=== PATIENT | female | born 1960 | race American Indian/Alaskan Native ===

== ENCOUNTER 2018-05-26 17:01 | Inpatient (IN) | payer BC ==
[2018-05-26 18:14] VITALS: BMI 24.1
[2018-05-26] MEDS ORDERED: Sodium Chloride 0.9% 1,000 ML IV STA (18:30)
--- NOTE | 2018-05-26 18:46 | ED PDOC ---
Arrival/HPI - General Chief Complaint: Dizziness/Lightheaded Time Seen by Provider: 05/26/18 17:19 Historian: Patient - History of Present Illness Narrative History of Present Illness (Text): 05/26/18 18:42 Patient 57 yo F, reports 1 week of L sided intermittent sharp pressure like headache associated with intermittent dizziness with vertigo not worse with head movement. Patient also c/o dry cough, nausea, decrease in appetite with intermittent lower abdominal crampy pain and diarrhea any time she eats. She adds weight loss x 2 weeks due to lack of appetite. Reports having a normal colonoscopy a few years ago. Otherwise: (-) lightheadedness, (-) trauma, (-) tinnitus, (-) hearing loss, (-) chest pain, (-) dyspnea, (-) fever, (-) vomiting , (-) urinary symptoms, (-) syncope, (-) GI bleeding, (-) melena, (-) hematochezia. Has history of prior abdominal surgery - hysterectomy. PMD [place] Past Medical History - Infectious Disease Hx of Infectious Diseases: None - Tetanus Immunization Tetanus Immunization: Unknown - Cardiac Hx Cardiac Disorders: Yes - Pulmonary Hx Respiratory Disorders: No - Neurological Hx Neurological Disorder: No - HEENT Hx HEENT Disorder: No - Renal Hx Renal Disorder: No - Endocrine/Metabolic Hx Endocrine Disorders: No - Hematological/Oncological Hx Blood Disorders: No - Integumentary Hx Dermatological Disorder: No - Musculoskeletal/Rheumatological Hx Musculoskeletal Disorders: Yes Hx Herniated Disk: Yes - Gastrointestinal Hx Gastrointestinal Disorders: No - Genitourinary/Gynecological Hx Genitourinary Disorders: No - Psychiatric Hx Psychophysiologic Disorder: No Hx Substance Use: No - Surgical History Hx Hysterectomy: Yes - Anesthesia Hx Anesthesia Reactions: No Hx Malignant Hyperthermia: No - Suicidal Assessment Feels Threatened In Home Enviroment: No Family/Social History Family/Social History: No Known Family HX Smoking Status: Light Smoker < 10 Cigarettes Daily Hx Alcohol Use: No Hx Substance Use: No Hx Substance Use Treatment: No Allergies/Home Meds Allergies/Adverse Reactions: Allergies No Known Allergies Allergy (Verified 05/26/18 17:35) Home Medications: Home Meds Medication Instructions Recorded Confirmed Alprazolam [Alprazolam Xr] 0.5 mg PO DAILY 05/26/18 05/26/18 Venlafaxine HCl [Venlafaxine HCl 150 mg PO DAILY 05/26/18 05/26/18 ER] traZODone [Desyrel] 100 mg PO HS 05/26/18 05/26/18 Review of Systems - Review of Systems Constitutional: Fatigue, Weight Change (+weight loss). absent: Fevers Respiratory: SOB, Cough Cardiovascular: absent: Chest Pain, Palpitations Gastrointestinal: Abdominal Pain, Diarrhea (after each meal ), Nausea. absent: Vomiting Genitourinary Female: absent: Dysuria, Frequency, Hematuria Musculoskeletal: absent: Arthralgias, Back Pain, Neck Pain Skin: absent: Rash, Pruritis Neurological: Headache, Dizziness (+room spinning sensation) Physical Exam Vital Signs Temp Pulse Resp BP Pulse Ox 05/27/18 00:42 84 95 H 132/84 96 05/26/18 17:38 98.3 F 72 18 136/88 100 Temperature: Afebrile Blood Pressure: Normal Pulse: Regular Respiratory Rate: Normal Appearance: Positive for: Well-Appearing, Non-Toxic, Comfortable Pain Distress: None Mental Status: Positive for: Alert and Oriented X 3 - Systems Exam Head: Present: Atraumatic, Normocephalic Pupils: Present: PERRL Extroacular Muscles: Present: EOMI Conjunctiva: Present: Normal Mouth: Present: Moist Mucous Membranes Neck: Present: Normal Range of Motion Respiratory/Chest: Present: Clear to Auscultation, Good Air Exchange. No: Respiratory Distress, Accessory Muscle Use, Wheezes, Rales, Rhonchi Cardiovascular: Present: Regular Rate and Rhythm, Normal S1, S2. No: Murmurs Abdomen: Present: Tenderness (+mild lower abdominal tenderness). No: Distention , Peritoneal Signs, Mass/Organomegaly Back: Present: Normal Inspection. No: CVA Tenderness, Midline Tenderness Upper Extremity: Present: Normal Inspection, Normal ROM, NORMAL PULSES. No: Cyanosis, Edema Lower Extremity: Present: Normal Inspection, NORMAL PULSES, Normal ROM. No: Edema Neurological: Present: GCS=15, CN II-XII Intact, Speech Normal, Motor Func Grossly Intact, Normal Sensory Function, Gait Normal Skin: Present: Warm, Dry, Normal Color. No: Rashes Psychiatric: Present: Alert, Oriented x 3, Normal Insight, Normal Concentration Medical Decision Making ED Course and Treatment: 05/26/18 18:40 Previous medical records reviewed, patient has been seen in this ER on 7/28/ 2015 for abdominal pain and was found to have colitis on her abdominal CT. Plan: -- Labs -- IV fluids -- Urinalysis -- EKG -- CXR -- Reglan -- Reassess and disposition -- CT AP w/ PO & IV contrast -- CT head 05/26/18 22:25 Labs reviewed : wbc 6.9, trop (-). CXR : NAD, as read by PA On reevaluation, patient reports minimal improvement of symptoms, still reports of heache and nausea, denies any CP. On exam, patient remains awake alert and oriented 3 in no acute distress. CT Head Without Intravenous Contrast EXAM DATE/TIME: 05/26/2018 6:29 PM CLINICAL HISTORY: 57 years old, female; Pain; Headache; Headache not specified; Additional info: Dizziness TECHNIQUE: Axial computed tomography images of the head/brain without intravenous contrast. All CT scans at this facility use at least one of these dose optimization techniques: automated exposure control; mA and/or kV adjustment per patient size (includes targeted exams where dose is matched to clinical indication); or iterative reconstruction. Coronal and sagittal reformatted images were created and reviewed. COMPARISON: No relevant prior studies available. FINDINGS: Brain: There is no evidence of intracranial hemorrhage, mass lesion, or mass effect. No abnormal extra-axial or parenchymal fluid collections. The posterior fossa is unremarkable. Ventricles: The ventricles and basilar cisterns are unremarkable. Bones/joints: The bony calvarium is unremarkable. Sinuses: Mild mucosal thickening present in the ethmoid sinuses. Mastoid air cells: Normal as visualized. No mastoid effusion. Soft tissues: Normal. IMPRESSION: There is no acute intracranial process. 05/26/18 22:32 CT Abdomen and Pelvis With Intravenous Contrast EXAM DATE/TIME: 05/26/2018 6:37 PM CLINICAL HISTORY: 57 years old, female; Pain; Abdominal pain; Acute; Additional info: Lower abd pain, diarrhea TECHNIQUE: Axial computed tomography images of the abdomen and pelvis with intravenous contrast. All CT scans at this facility use at least one of these dose optimization techniques: automated exposure control; mA and/or kV adjustment per patient size (includes targeted exams where dose is matched to clinical indication); or iterative reconstruction. Coronal and sagittal reformatted images were created and reviewed. CONTRAST: 50 ml of OMNI 240 administered intravenously. COMPARISON: No relevant prior studies available. FINDINGS: Lower thorax: Pericardial effusion is identified. Dependent changes and subpleural reticulation in the lung bases. ABDOMEN: Liver: . No mass. Gallbladder and bile ducts: . No calcified stones. No ductal dilation. Pancreas: . No ductal dilation. Spleen: . No splenomegaly. Adrenals: There is thickening of the adrenal glands present. Kidneys and ureters: There is hyperdense nodules scattered throughout the left renal parenchyma incompletely characterized correlation with prior imaging or further evaluation and followup is recommended. Stomach and bowel: Scattered diverticuli. No obstruction. No mucosal thickening. Appendix: No evidence of appendicitis. PELVIS: Bladder: Unremarkable as visualized. Reproductive: Unremarkable as visualized. ABDOMEN and PELVIS: Intraperitoneal space: . No free air. No significant fluid collection. Bones/joints: No acute fracture. No dislocation. Soft tissues: There are innumerable soft tissue nodules in the regions bilaterally. Stranding of the adjacent soft tissue fat present. Correlate with history. Vasculature: Vascular calcifications of the aorta. . Lymph nodes: Scattered mesenteric lymph nodes. IMPRESSION: 1. Pericardial effusion is identified. 2. There is hyperdense nodules scattered throughout the left renal parenchyma incompletely characterized correlation with prior imaging or further evaluation and followup is recommended. 3. There are innumerable soft tissue nodules in the regions bilaterally. Stranding of the adjacent soft tissue fat present. Correlate with history. Patient medicated with zofran 4 mg IV and toradol 30 mg IV for nausea and headache. CT head and A/P results reviewed and discussed with the patient and ER MD. In patient's prior CT A/P done in 2014, there was no pericardial fluid. EKG : NSR at 68 bpm, +slight ST elevation at V4-V6 only, as read by PA and ER MD. Based on history, exam and diagnostic results plan will be for observation with cardio consult in the AM, which the patient agrees to. Case d/w Dr. Khalil, request CT chest and if the patient has a minor pericardial fluid on CT, then the patient can stay for observation. 05/27/18 00:42 CT Chest Without Intravenous Contrast EXAM DATE/TIME: 05/26/2018 11:17 PM CLINICAL HISTORY: 57 years old, female; Pain and signs and symptoms; Other: Pericardial fluid; Chest pain; Type not specified TECHNIQUE: Axial computed tomography images of the chest without intravenous contrast. All CT scans at this facility use at least one of these dose optimization techniques: automated exposure control; mA and/or kV adjustment per patient size (includes targeted exams where dose is matched to clinical indication); or iterative reconstruction. COMPARISON: DX - CHEST TWO VIEWS (PA/LAT) 05/26/2018 9:52 PM FINDINGS: Tubes, catheters and devices: Septal line thickening suggestive of congestion. Lungs: Mild dependent atelectatic changes in the lungs. Scattered right upper lobe nodules measuring up to 5 mm. Pleural space: Trace pleural fluid. Heart: Small volume of pericardial fluid. 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 Aorta: Normal. No aortic aneurysm. Lymph nodes: Unremarkable. No enlarged lymph nodes. Bones/joints: Degenerative changes of the osseous structures. Right shoulder ossifications. Soft tissues: Unremarkable. Upper abdomen: For report of the abdomen please see recent separate report. IMPRESSION: 1. For report of the abdomen please see recent separate report. 2. Trace pleural fluid. 3. Small volume of pericardial fluid. 4. Septal line thickening suggestive of congestion. 5. 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 05/27/18 00:45 CT chest result d/w Dr. Khalil, agrees with plan for obs stay. - Lab Interpretations Lab Results: 05/26/18 18:58 05/26/18 18:58 Lab Results 05/26/18 18:58: Sodium 138, Potassium 4.2, Chloride 104, Carbon Dioxide 27, Anion Gap 11, BUN 19, Creatinine 1.4 H, Est GFR ( Amer) 47, Est GFR (Non- Af Amer) 39, Random Glucose 79, Calcium 9.7, Magnesium 1.8, Total Bilirubin 0.2 , AST 29, ALT 28, Alkaline Phosphatase 59, Lactate Dehydrogenase 623, Total Creatine Kinase 54, Troponin I < 0.01, Total Protein 6.1, Albumin 3.8, Globulin 2.4, Albumin/Globulin Ratio 1.6 05/26/18 18:58: WBC 6.9, RBC 4.12, Hgb 12.3, Hct 35.8 L, MCV 86.9, MCH 29.9, MCHC 34.4, RDW 13.0, Plt Count 237, MPV 10.5, Gran % 42.0 L, Lymph % (Auto) 51.0 H, Schley % (Auto) 5.5, Eos % (Auto) 0.9 L, Baso % (Auto) 0.6, Gran # 2.92, Lymph # (Auto) 3.5 H, Schley # (Auto) 0.4, Eos # (Auto) 0.1, Baso # (Auto) 0.04 - RAD Interpretation Radiology Orders: 05/26/18 18:25 CHEST TWO VIEWS (PA/LAT) [RAD] Stat 05/26/18 18:29 HEAD W/O CONTRAST [CT] Stat 05/26/18 18:37 ABD & PELVIS PO CONTRAST ONLY [CT] Stat 05/26/18 23:17 CHEST W/O CONTRAST [CT] Stat - Medication Orders Current Medication Orders: Discontinued Medications Sodium Chloride (Sodium Chloride 0.9%) 1,000 mls @ 1,000 mls/hr IV .Q1H STA Stop: 05/26/18 19:29 Last Admin: 05/26/18 19:07 Dose: 1,000 mls/hr eMAR Start Stop Document 05/26/18 19:07 [facility] (Rec: 05/26/18 19:08 [email or web address] Intravenous Solution Start Date 05/26/18 Start Time 19:08 Ketorolac Tromethamine (Toradol) 30 mg IVP STAT STA Stop: 05/26/18 22:27 Last Admin: 05/26/18 22:51 Dose: 30 mg MAR Pain Assessment Document 05/26/18 22:51 SS (Rec: 05/26/18 22:51 SS [id number]) Pain Reassessment Is this a pain reassessment? No Presence of Pain Presence of Pain Yes Pain Scale Used Pain Scale Used Numeric IVP Administration Document 05/26/18 22:51 SS (Rec: 05/26/18 22:51 SS [id number]) Charges for Administration # of IVP Administrations 1 Metoclopramide HCl (Reglan) 10 mg IVP STAT STA Stop: 05/26/18 18:31 Last Admin: 05/26/18 19:06 Dose: 10 mg IVP Administration Document 05/26/18 19:06 [facility] (Rec: 05/26/18 19:06 [email or web address] Charges for Administration # of IVP Administrations 1 Ondansetron HCl (Zofran Inj) 4 mg IVP STAT STA Stop: 05/26/18 22:27 Last Admin: 05/26/18 22:51 Dose: 4 mg IVP Administration Document 05/26/18 22:51 SS (Rec: 05/26/18 22:51 SS [id number]) Charges for Administration # of IVP Administrations 1 - PA / [employer]ICE [employer]GE[employer] / Resident Statement MD/DO has reviewed & agrees with the documentation as recorded. Disposition/Present on Arrival - Present on Arrival Any Indicators Present on Arrival: No History of DVT/PE: No History of Uncontrolled Diabetes: No Urinary Catheter: No History of Decub. Ulcer: No History Surgical Site Infection Following: None - Disposition Have Diagnosis and Disposition been Completed?: Yes Diagnosis: Pericardial effusion, Weight loss Disposition: HOSPITALIZED Disposition Time: 00:45 Patient Plan: Observation Patient Problems: Current Active Problems Problem Status Onset Pericardial effusion Acute Weight loss Acute Condition: STABLE Forms: [employer] ([place]rian)
[2018-05-26] MEDS ORDERED: Iohexol 240 (50 ml) ONE (18:59)
[2018-05-26] MEDS ORDERED: Iohexol 350 MG/100 ML VIAL ONE (18:59)
[2018-05-26 19:06] LABS: BASO # 0.04 K/mm3 (0.0-2.0); BASO % 0.6 % (0.0-3.0); EOS # 0.1 (0.0-0.7); EOS % 0.9 % (1.5-5.0); GRAN # 2.92 (1.4-6.5); HEMOGLOBIN 12.3 g/dL (12.0-16.0); LYMPH # 3.5 (1.2-3.4); MEAN CELL VOLUME 86.9 fl (80.0-105.0); MEAN CORPUSCULAR HEMOGLOBIN 29.9 pg (25.0-35.0); MEAN CORPUSCULAR HGB CONC 34.4 g/dl (31.0-37.0); MEAN PLATELET VOLUME 10.5 fl (7.0-11.0); MONO # 0.4 (0.1-0.6); MONO % 5.5 % (1.0-6.0); RBC 4.12 10^6/uL (3.5-6.1); WHITE BLOOD COUNT 6.9 10^3/ul (4.5-11.0)
[2018-05-26 19:20] LABS: ALB/GLOB RATIO 1.6 (1.1-1.8); ALBUMIN 3.8 g/dL (3.0-4.8); ALT/SGPT 28 U/L (7-56); AST/SGOT 29 U/L (14-36); BLOOD UREA NITROGEN 19 mg/dL (7-21); CALCIUM 9.7 mg/dL (8.4-10.5); GFR NON-AFRICAN AMERICAN 39
[2018-05-26 19:32] LABS: TROPONIN I < 0.01 ng/mL
[2018-05-27] MEDS: Sodium Chloride 0.9% 1,000 ML IV SCH ×2 (04:18→17:50)
[2018-05-27] MEDS: Pantoprazole 40 mg EC Tab PO SCH (05:55)
--- NOTE | 2018-05-27 06:11 | CP.PCM.HP ---
<Angelito Jacobson - Last Filed: 05/27/18 07:36> History of Present Illness - History of Present Illness History of Present Illness: Angelito Romanodgjames DO PGY-1, H&P for hospitalist CC: headache, dizziness This is a 57 year old AA female with PMHx of colitis, endometriosis, depression who presented to the ED with complaints of a headache, nausea, and dizziness. Pt states that she has had a worsening headache for the past 2 weeks, described as intermittent, located on the left temporal region, sharp, stabbing, 10/10. Pt states that the pain sometimes radiates across her forehead to the right temporal region. She denies any exacerbating events, and states that it is only mildly alleviated with Aleve which brings the pain down to a 8/10. Pt denies visual problems, no claudication of jaw while chewing, weakness, numbness or tingling, falls. Pt denies any history of migraines. Pt is also reporting abdominal pain for the past 1 week, associated with 2-3 episodes of diarrhea per day. Diarrhea is mostly liquid brown, but sometimes black. Abdominal pain is intermittent sharp, 7/10 and located across the lower abdomen, without alleviating or exacerbating symptoms. She states that she has lost 12 pounds over the past week, and has had decreased appetite and nausea, due to being afraid to eat. Pt reports intermittent SOB over the past week that she noticed worsens when walking, associated with a sharp pain in the middle of chest, nonradiating. She reports that she is getting over a dry cough, with congestion and sore throat for the past 2 weeks. She denies fever, chills, rash , sick contacts, recent travel. A 12-point ROS was reviewed and is otherwise unremarkable. In the ED, Abdominal/pelvic CT with IV contrast which showed pericardial effusion. Chest CT showed small volume of pericardial fluid. PMD: Deduosis Psych: Dr Calvillo PMHx: colitis 2015, endometriosis, kidney issues when a teenage but hasn't had any problems since, 8 herniated discs with chronic back pain, depression, PSHx: fibroids removal with ultimate hysterectomy in early 1999s FHx: granfather with pancreaatic cancer, aunt with metastatic breast cancer diagnosed in early 60s and soon after dx Meds: trazodone, alprazolam xr, venlafaxine, vitamin d, multivitamins Allx: NKDA Social Hx: smokes 1-2 cigs per day, 20 pack year history, quit etoh 26 years ago , denies illicit drugs use for over 20 years (no history of IV drug use) Preventative: Colonoscopy in 2016 which was normal as per pt. mammogram last year which was normal as per pt. Present on Admission - Present on Admission Any Indicators Present on Admission: No Review of Systems - Review of Systems All systems: reviewed and no additional remarkable complaints except (as per HPI ) Past Patient History - Infectious Disease Hx of Infectious Diseases: None - Tetanus Immunizations Tetanus Immunization: Unknown - Past Social History Smoking Status: Light Smoker < 10 Cigarettes Daily - CARDIAC Hx Cardiac Disorders: Yes - PULMONARY Hx Respiratory Disorders: No - NEUROLOGICAL Hx Neurological Disorder: No - HEENT Hx HEENT Problems: No - RENAL Hx Chronic Kidney Disease: No - ENDOCRINE/METABOLIC Hx Endocrine Disorders: No - HEMATOLOGICAL/ONCOLOGICAL Hx Blood Disorders: No - INTEGUMENTARY Hx Dermatological Problems: No - MUSCULOSKELETAL/RHEUMATOLOGICAL Hx Falls: No - GASTROINTESTINAL Hx Gastrointestinal Disorders: No - GENITOURINARY/GYNECOLOGICAL Hx Genitourinary Disorders: No - PSYCHIATRIC Hx Psychophysiologic Disorder: No Hx Substance Use: No - SURGICAL HISTORY Hx Hysterectomy: Yes - ANESTHESIA Hx Anesthesia Reactions: No Hx Malignant Hyperthermia: No Meds Allergies/Adverse Reactions: Allergies Allergy/AdvReac Type Severity Reaction Status Date / Time No Known Allergies Allergy Verified 05/26/18 17:35 Physical Exam - Constitutional Appears: Well, Non-toxic, No Acute Distress - Head Exam Head Exam: ATRAUMATIC, NORMAL INSPECTION, NORMOCEPHALIC - Eye Exam Eye Exam: EOMI, PERRL Pupil Exam: NORMAL ACCOMODATION, PERRL - ENT Exam ENT Exam: Mucous Membranes Moist Additional comments: (+) pharyngeal erythema without exudates - Neck Exam Neck exam: Positive for: Normal Inspection. Negative for: Lymphadenopathy - Respiratory Exam Respiratory Exam: NORMAL BREATHING PATTERN. absent: Rales, Rhonchi, Wheezes, Respiratory Distress - Cardiovascular Exam Cardiovascular Exam: REGULAR RHYTHM, +S1, +S2. absent: Rubs - GI/Abdominal Exam GI & Abdominal Exam: Normal Bowel Sounds, Soft, Tenderness Additional comments: (+) mild abdominal tenderness across the lower abdomen - Extremities Exam Extremities exam: Positive for: pedal pulses present. Negative for: calf tenderness, tenderness - Back Exam Back exam: NORMAL INSPECTION. absent: CVA tenderness (L), CVA tenderness (R) - Neurological Exam Neurological exam: Alert, CN II-XII Intact, Oriented x3 Additional comments: (+) 5/5 strength in bilateral upper and lower extremities - Skin Skin Exam: Normal Color, Warm Additional comments: (-) rash, (-) purpora Results - Vital Signs Recent Vital Signs: Last Vital Signs Temp 98.2 F 05/27/18 03:03 Pulse 71 05/27/18 03:03 Resp 20 05/27/18 03:03 BP 106/63 05/27/18 03:03 Pulse Ox 99 05/27/18 03:03 - Labs Result Diagrams: 05/26/18 18:58 05/26/18 18:58 Labs: Laboratory Results - last 24 hr 05/27/18 01:45 Troponin I < 0.01 Assessment & Plan - Assessment and Plan (Free Text) Assessment: This is a 57 year old AA female with PMHx of colitis, endometriosis, depression who presented to the ED with complaints of a headache, nausea, dizziness, sob, weight loss. In the ED, pt was noted to have a small pericardial effusion on CT. Pt admitted to med/surg for observation. Plan: 1. dizziness and headache - head ct shows no intracranial pathology - tylenol prn headache - neurology consulted, recs appreciated 2. pericardial effusion, unknown etiology - pt is hemodynamically stable; no leukocytosis but increased lymphocytes on cbc - f/u blood culture x2, urine culture - f/u lupus sle panel - f/u echocardiogram - f/u ekg - troponin is negative x 2; continue to trend troponin x 1 - cardiology consulted, recs appreciated 3. nirmala - cr is 1.4 - NS ivf - avoid nephrotoxic medications - hyperdense nodules scattered throughout the left renal parenchyma on abdominal /pelvic ct - nephrology consulted, recs appreciated 4. weight loss (12 lbs over 2 weeks), possibly due to diarrhea with malabsorption, r/o ca - f/u HIV panel - f/u ca-125, cea, ca 19-9 levels - f/u lipase, vit b12 - f/u fecal leukocytes, stool culture, ova and parasites - f/u TSH, t3, t4 - innumerable soft tissue nodules noted on abdominal ct 5. abdominal pain with diarrhea - abdominal/pelvic ct was done - tylenol for pain - consider GI consult after stool studies return 6. depression - continue home medications 7. history of vit d deficiency - vitamin d level ordered - will prescribe vitamin D if deficient 7. PPX/diet - protonix for GI, scds for dvt - regular diet Case reviewed and discussed with attending physician, Dr. Khalil <Josette Khalil - Last Filed: 05/27/18 08:43> Results - Vital Signs Recent Vital Signs: Last Vital Signs Temp 98.2 F 05/27/18 06:00 Pulse 71 05/27/18 06:00 Resp 20 05/27/18 06:00 BP 106/63 05/27/18 06:00 Pulse Ox 99 05/27/18 06:00 - Labs Result Diagrams: 05/27/18 07:15 05/27/18 07:15 Labs: Laboratory Results - last 24 hr 05/27/18 05/27/18 05/27/18 01:45 07:00 07:15 WBC RBC Hgb Hct MCV MCH MCHC RDW Plt Count MPV Gran % Lymph % (Auto) [place] % (Auto) Eos % (Auto) Baso % (Auto) Gran # Lymph # (Auto) [place] # (Auto) Eos # (Auto) Baso # (Auto) PT INR APTT Sodium Potassium Chloride Carbon Dioxide Anion Gap BUN Creatinine Est GFR ( Amer) Est GFR (Non-Af Amer) Random Glucose Calcium Total Bilirubin AST ALT Alkaline Phosphatase Troponin I < 0.01 Total Protein Albumin Globulin Albumin/Globulin Ratio Lipase Free T4 0.85 TSH 3rd Generation 2.62 Urine Color Urine Appearance Urine pH Ur Specific [place] Urine Protein Urine Glucose (UA) Urine Ketones Urine Blood Urine Nitrate Urine Bilirubin Urine Urobilinogen Ur Leukocyte Esterase Urine RBC Urine WBC Ur Epithelial Cells Urine Bacteria Ur Random Sodium 37 05/27/18 05/27/18 05/27/18 07:15 07:15 07:15 WBC 5.7 RBC 3.92 Hgb 11.6 L Hct 34.4 L MCV 87.8 MCH 29.6 MCHC 33.7 RDW 13.0 Plt Count 227 MPV 10.1 Gran % 54.3 Lymph % (Auto) 39.1 H [place] % (Auto) 5.0 Eos % (Auto) 0.7 L Baso % (Auto) 0.9 Gran # 3.07 Lymph # (Auto) 2.2 [place] # (Auto) 0.3 Eos # (Auto) 0.0 Baso # (Auto) 0.05 PT 10.9 INR 0.95 APTT 32.4 Sodium 141 Potassium 4.3 Chloride 108 H Carbon Dioxide 27 Anion Gap 10 BUN 20 Creatinine 1.4 H Est GFR ( Amer) 47 Est GFR (Non-Af Amer) 39 Random Glucose 93 Calcium 9.1 Total Bilirubin 0.1 L AST 41 H D ALT 42 Alkaline Phosphatase 51 Troponin I Total Protein 5.5 L Albumin 3.3 Globulin 2.2 Albumin/Globulin Ratio 1.5 Lipase Free T4 TSH 3rd Generation Urine Color Urine Appearance Urine pH Ur Specific [place] Urine Protein Urine Glucose (UA) Urine Ketones Urine Blood Urine Nitrate Urine Bilirubin Urine Urobilinogen Ur Leukocyte Esterase Urine RBC Urine WBC Ur Epithelial Cells Urine Bacteria Ur Random Sodium 05/27/18 05/27/18 05/27/18 07:15 07:45 07:50 WBC RBC Hgb Hct MCV MCH MCHC RDW Plt Count MPV Gran % Lymph % (Auto) [place] % (Auto) Eos % (Auto) Baso % (Auto) Gran # Lymph # (Auto) [place] # (Auto) Eos # (Auto) Baso # (Auto) PT INR APTT Sodium Potassium Chloride Carbon Dioxide Anion Gap BUN Creatinine Est GFR ( Amer) Est GFR (Non-Af Amer) Random Glucose Calcium Total Bilirubin AST ALT Alkaline Phosphatase Troponin I < 0.01 Total Protein Albumin Globulin Albumin/Globulin Ratio Lipase 200 Free T4 TSH 3rd Generation Urine Color Light yellow Urine Appearance Clear Urine pH 5.0 Ur Specific [place] <= 1.005 Urine Protein Negative Urine Glucose (UA) Negative Urine Ketones Negative Urine Blood Negative Urine Nitrate Negative Urine Bilirubin Negative Urine Urobilinogen 0.2 Ur Leukocyte Esterase Trace H Urine RBC 0 - 2 Urine WBC 2 - 5 Ur Epithelial Cells 3 - 4 Urine Bacteria Few Ur Random Sodium Attending/Attestation - Attestation I have personally seen and examined this patient.: Yes I have fully participated in the care of the patient.: Yes I have reviewed all pertinent clinical information: Yes Notes (Text): 05/27/18 08:41 Pt seen with the resident by the bedside. Case discussed in detail. Agree with documentation,assessment and plan of treatment.
[2018-05-27 07:41] LABS: BASO # 0.05 K/mm3 (0.0-2.0); BASO % 0.9 % (0.0-3.0); EOS % 0.7 % (1.5-5.0); GRAN # 3.07 (1.4-6.5); GRAN % 54.3 % (50.0-68.0); HEMOGLOBIN 11.6 g/dL (12.0-16.0); LYMPH # 2.2 (1.2-3.4); LYMPH % 39.1 % (22.0-35.0); MEAN CELL VOLUME 87.8 fl (80.0-105.0); MEAN CORPUSCULAR HEMOGLOBIN 29.6 pg (25.0-35.0); MEAN CORPUSCULAR HGB CONC 33.7 g/dl (31.0-37.0); MEAN PLATELET VOLUME 10.1 fl (7.0-11.0); MONO # 0.3 (0.1-0.6); RBC 3.92 10^6/uL (3.5-6.1); WHITE BLOOD COUNT 5.7 10^3/ul (4.5-11.0)
[2018-05-27 07:49] LABS: INR 0.95; PARTIAL THROMBOPLASTIN TIME 32.4 Seconds (25.1-36.5); PROTHROMBIN TIME 10.9 SECONDS (9.4-12.5)
[2018-05-27 07:54] LABS: ALB/GLOB RATIO 1.5 (1.1-1.8); ALBUMIN 3.3 g/dL (3.0-4.8); CALCIUM 9.1 mg/dL (8.4-10.5)
[2018-05-27 07:58] LABS: URINE BILIRUBIN NEGATIVE (NEGATIVE); URINE BLOOD NEGATIVE (NEGATIVE); URINE GLUCOSE (UA) NEGATIVE (NEGATIVE); URINE LEUKOCYTE ESTERASE TRACE Leu/uL (NEGATIVE); URINE PROTEIN NEGATIVE mg/dL (<30 mg/dL); URINE UROBILINOGEN 0.2 E.U./dL (<1 E.U./dL)
[2018-05-27 08:01] LABS: URINE APPEARANCE CLEAR (CLEAR); URINE COLOR LIGHT YELLOW (YELLOW)
[2018-05-27 08:07] LABS: FREE T4 0.85 ng/dL (0.78-2.19)
[2018-05-27 08:20] LABS: LIPASE 200 U/L (23-300)
[2018-05-27 08:28] LABS: URINE BACTERIA FEW (NEG); URINE RBC 0 - 2 /hpf (0-2)
[2018-05-27] MEDS: Venlafaxine 75 mg ER Cap PO SCH (08:59)
--- NOTE | 2018-05-27 09:16 | CT ---
Date of service: 05/26/2018 PROCEDURE: CT Abdomen and Pelvis with contrast HISTORY: Lower abdominal pain, diarrhea COMPARISON: 05/13/2015 TECHNIQUE: Contrast dose: Oral contrast only. Print Radiation dose: Total exam DLP = 657.55 MGy-cm. This CT exam was performed using one or more of the following dose reduction techniques: Automated exposure control, adjustment of the mA and/or kV according to patient size, and/or use of iterative reconstruction technique. FINDINGS: LOWER THORAX: Stable trace pericardial effusion. LIVER: Unremarkable. No gross lesion or ductal dilatation. GALLBLADDER AND BILE DUCTS: Unremarkable. PANCREAS: Unremarkable. No gross lesion or ductal dilatation. SPLEEN: Unremarkable. ADRENALS: Unremarkable. No mass. KIDNEYS AND URETERS: Nephrocalcinosis/ tiny calcified masses/cysts unilateral, only affecting the left kidney. These findings however are stable compared to the prior study. VASCULATURE: Unremarkable. No aortic aneurysm. BOWEL: Unremarkable. No obstruction. No gross mural thickening. APPENDIX: Normal appendix. PERITONEUM: Unremarkable. No free fluid. No free air. LYMPH NODES: Unremarkable. No enlarged lymph nodes. BLADDER: Unremarkable. REPRODUCTIVE: Unremarkable. BONES: No acute fracture. OTHER FINDINGS: Innumerable injection granuloma/ small masses gluteal region unchanged compared to the prior study. IMPRESSION: No acute findings related to/accounting for the clinical presentation. Additional benign and/or incidental findings described above. No significant interval change compared to the prior examination(s). Concordant results (preliminary interpretation) provided by [employer]. Procedure Completed: 21:46 Preliminary ([facility]) Report: Dictated and Authenticated: 22:28 Final Interpretation: 09:14. May 27, 2018.
--- NOTE | 2018-05-27 09:51 | CT ---
Date of service: 05/26/2018 PROCEDURE: CT HEAD WITHOUT CONTRAST. HISTORY: dizziness COMPARISON: None available. TECHNIQUE: Axial computed tomography images were obtained through the head/brain without intravenous contrast. Radiation dose: Total exam DLP = 977 mGy-cm. This CT exam was performed using one or more of the following dose reduction techniques: Automated exposure control, adjustment of the mA and/or kV according to patient size, and/or use of iterative reconstruction technique. FINDINGS: HEMORRHAGE: No intracranial hemorrhage. BRAIN: No mass effect or edema. No atrophy or chronic microvascular ischemic changes. VENTRICLES: Unremarkable. No hydrocephalus. CALVARIUM: Unremarkable. PARANASAL SINUSES: Unremarkable as visualized. No significant inflammatory changes. MASTOID AIR CELLS: Unremarkable as visualized. No inflammatory changes. OTHER FINDINGS: The report concurs with the preliminary [facility] [employer] report IMPRESSION: No acute intracranial process
--- NOTE | 2018-05-27 10:04 | RAD ---
Date of service: 05/26/2018 HISTORY: cough COMPARISON: No prior. TECHNIQUE: Chest PA and lateral FINDINGS: LUNGS: Mild peribronchial thickening PLEURA: No significant pleural effusion identified. No pneumothorax apparent. CARDIOVASCULAR: Normal. OSSEOUS STRUCTURES: No significant abnormalities. VISUALIZED UPPER ABDOMEN: Normal. OTHER FINDINGS: None. IMPRESSION: Mild peribronchial thickening. No evidence of pneumonia
--- NOTE | 2018-05-27 10:38 | CT ---
Date of service: 05/26/2018 PROCEDURE: CT Chest without contrast HISTORY: pericardial fluid COMPARISON: May 26, 2018. TECHNIQUE: Contiguous axial images were obtained through the chest without intravenous contrast enhancement. Sagittal and coronal reconstructions were performed. Radiation dose (DLP): 244.44 mGy-cm. This CT exam was performed using one or more of the following dose reduction techniques: Automated exposure control, adjustment of the mA and/or kV according to patient size, and/or use of iterative reconstruction technique. FINDINGS: LUNGS: Clear lungs. Visualized airway clear. MEDIASTINUM: Unremarkable thoracic aorta. No aneurysm. Normal sized heart. Trace pericardial effusion/thickening, similar findings can be seen on prior CT scans 05/13/2015. Dilated main pulmonary artery 3.5 cm consistent with pulmonary arterial hypertension. No lymphadenopathy. PLEURA: No pleural fluid. No pneumothorax. BONES: No fracture. No destructive lesion. UPPER ABDOMEN: Grossly unremarkable. OTHER FINDINGS: The esophagus is dilated and contains fluid and debris. No mucosal or constricting lesions are visible. IMPRESSION: No acute findings related to/accounting for the clinical presentation. Additional benign and/or incidental findings described above. Concordant results (preliminary interpretation) provided by [employer]. Procedure Completed: 23:35. Preliminary ([facility]) Report: Dictated and Authenticated: 00:29. May 27, 2018. Final Interpretation: 10:35.
--- NOTE | 2018-05-27 12:23 | CARD ---
APPROVED REPORT Date of service: 05/26/2018 EKG Measurement Heart [id number] <Conclusion> Normal sinus rhythm Possible Left atrial enlargement
[2018-05-27] MEDS: ALPRAZOLAM 0.5 MG PO SCH (13:15)
--- NOTE | 2018-05-27 14:30 | CP.PCM.CON ---
History of Present Illness - History of Present Illness History of Present Illness: Nephrology Consultation Note: Assessment: Stable Acute Kidney Injury (N17.9) likely due to GI fluid loss and decreased oral intake acute gastroenterittis Anemia left renal changed on imaging ? due to prior infection versus embolic infarction Plan No acute need for renal replacement therapy at this time. Maintain hemodynamics stable. Avoid hypotension. Patient not on ACEI/ARB due to recent CARMELA and low BP Monitor Input/Output, daily weights and renal function with basic metabolic panel continue with IVF Anemia work up as per primary team consider outpt cardiology eval for parox a Afib as possible source of embolism to kidney in past. echo results pending Dose meds/antibiotics for reduced GFR. Avoid fleets enema/magnesium based laxatives. Avoid nephrotoxins/NSAIDs/ iodinated contrast (unless needed emergently) Glycemic control Further work up/management as per primary team Thanks for allowing me to participate in care of your patient. Will follow patient with you. Please call if any Qs. had d/w team Dr Demsond Yanes Office: [phone] Chief Complaint; nausea/loose stool Reason for consult: Acute Kidney Injury HPI: Pt is a 57 F without known hx of DM or HTN presented with complaints of decreased appetite, nausea/vomiting and loose stool for last 2 weeks with 15 weight loss due to it. she fee;s better now. BM soft. no further vomitting Denies OTC/herbal meds or NSAIDs No recent iodinated contrast exposure. No obvious episodes of low BP. pt says she had kidney infection as a teen otherwise not aware about kidney disease in past ROS: Cardiovascular: No chest pain. Pulmonary: No shortness of breath Gastrointestinal: denies abdominal pain No nausea. No vomiting. no loose stool today Genitourinary: No pain while urinating. Denies blood in urine. All other negative except as mentioned in HPI Physical Examination: General Appearance: Comfortable, in no acute respiratory distress, co-operative . Vitals reviewed and noted as below Head; Atraumatic, normocephalic ENT: no ulcers no thrush. Tongue is midline. Oropharynx: no rash or ulcers. EYES: Pupils are equal, round and reactive to light accommodation. Eye muscles and extraocular movement intact. Sclera is anicteric. Neck; supple no lymphadenopathy, no thyromegaly or bruit Lungs: Normal respiratory rate/effort. Breath sounds bilateral equal and clear Heart: Normal rate. s1s2 normal. No rub or gallop. Extremities: no edema. No varicose veins Neurological: Patient is alert, awake and oriented to person, place and time. No focal deficit. Strength bilateral appropriate and equal Skin: Warm and dry. Normal turgor. No rash. Palpitation: Normal elasticity for age Abdomen: Abdomen is soft. Bowel sounds +. There is no abdominal tenderness, no guarding/rigidity no organomegaly Psych: normal insight and normal affect/mood MSK: no joint tenderness or swelling. Digits and nails normal, no deformity : kidney or bladder not palpable Labs/imaging reviewed. Past medical history, past surgical history, family history, social history, allergy reviewed and noted as below Family hx: no hx of CKD. Rest non-contributory imaging; left renal parenchymal calcification and ? embolic infarction changes UA no protein or blood Past Patient History - Infectious Disease Hx of Infectious Diseases: None - Tetanus Immunizations Tetanus Immunization: Unknown - Past Social History Smoking Status: Light Smoker < 10 Cigarettes Daily - CARDIAC Hx Cardiac Disorders: Yes - PULMONARY Hx Respiratory Disorders: No - NEUROLOGICAL Hx Neurological Disorder: No - HEENT Hx HEENT Problems: No - RENAL Hx Chronic Kidney Disease: No - ENDOCRINE/METABOLIC Hx Endocrine Disorders: No - HEMATOLOGICAL/ONCOLOGICAL Hx Blood Disorders: No - INTEGUMENTARY Hx Dermatological Problems: No - MUSCULOSKELETAL/RHEUMATOLOGICAL Hx Falls: No - GASTROINTESTINAL Hx Gastrointestinal Disorders: No - GENITOURINARY/GYNECOLOGICAL Hx Genitourinary Disorders: No - PSYCHIATRIC Hx Psychophysiologic Disorder: No Hx Substance Use: No - SURGICAL HISTORY Hx Hysterectomy: Yes - ANESTHESIA Hx Anesthesia Reactions: No Hx Malignant Hyperthermia: No Meds Allergies/Adverse Reactions: Allergies Allergy/AdvReac Type Severity Reaction Status Date / Time No Known Allergies Allergy Verified 05/26/18 17:35 - Medications Medications: Current Medications Acetaminophen (Tylenol 325mg Tab) 650 mg PO Q6H PRN PRN Reason: Headache Last Admin: 05/27/18 04:17 Dose: 650 mg Alprazolam (Xanax) 0.5 mg PO BID PRN; Protocol PRN Reason: Anxiety Last Admin: 05/27/18 13:15 Dose: 0.5 mg Home Med (Home Med) 1 unit PO DAILY TED Last Admin: 05/27/18 13:15 Dose: Not Given Sodium Chloride (Sodium Chloride 0.9%) 1,000 mls @ 100 mls/hr IV .Q10H [facility] Last Admin: 05/27/18 04:18 Dose: 100 mls/hr Ondansetron HCl (Zofran Inj) 4 mg IVP Q4H PRN PRN Reason: Nausea/Vomiting Last Admin: 05/27/18 08:53 Dose: 4 mg Pantoprazole Sodium (Protonix Ec Tab) 40 mg PO 0600 [facility] Last Admin: 05/27/18 05:55 Dose: 40 mg Trazodone HCl (Desyrel) 100 mg PO HS [facility] Venlafaxine HCl (Effexor Xr) 150 mg PO DAILY [facility] Last Admin: 05/27/18 08:59 Dose: 150 mg Results - Vital Signs Recent Vital Signs: Last Vital Signs Temp 98.2 F 05/27/18 06:00 Pulse 71 05/27/18 06:00 Resp 20 05/27/18 06:00 BP 106/63 05/27/18 06:00 Pulse Ox 99 05/27/18 06:00 - Labs Result Diagrams: 05/27/18 07:15 05/27/18 07:15 Labs: Laboratory Results - last 24 hr 05/27/18 05/27/18 05/27/18 01:45 07:00 07:15 WBC RBC Hgb Hct MCV MCH MCHC RDW Plt Count MPV Gran % Lymph % (Auto) [place] % (Auto) Eos % (Auto) Baso % (Auto) Gran # Lymph # (Auto) [place] # (Auto) Eos # (Auto) Baso # (Auto) PT INR APTT Sodium Potassium Chloride Carbon Dioxide Anion Gap BUN Creatinine Est GFR ( Amer) Est GFR (Non-Af Amer) Random Glucose Calcium Total Bilirubin AST ALT Alkaline Phosphatase Troponin I < 0.01 Total Protein Albumin Globulin Albumin/Globulin Ratio Lipase Carcinoembryonic Ag CA 125 Antigen Vitamin B12 25-OH Vitamin D Total Free T4 Free T3 pg/mL 2.99 TSH 3rd Generation Urine Color Urine Appearance Urine pH Ur Specific Joes Urine Protein Urine Glucose (UA) Urine Ketones Urine Blood Urine Nitrate Urine Bilirubin Urine Urobilinogen Ur Leukocyte Esterase Urine RBC Urine WBC Ur Epithelial Cells Urine Bacteria Ur Random Sodium 37 05/27/18 05/27/18 05/27/18 07:15 07:15 07:15 WBC 5.7 RBC 3.92 Hgb 11.6 L Hct 34.4 L MCV 87.8 MCH 29.6 MCHC 33.7 RDW 13.0 Plt Count 227 MPV 10.1 Gran % 54.3 Lymph % (Auto) 39.1 H Cecil % (Auto) 5.0 Eos % (Auto) 0.7 L Baso % (Auto) 0.9 Gran # 3.07 Lymph # (Auto) 2.2 Cecil # (Auto) 0.3 Eos # (Auto) 0.0 Baso # (Auto) 0.05 PT INR APTT Sodium 141 Potassium 4.3 Chloride 108 H Carbon Dioxide 27 Anion Gap 10 BUN 20 Creatinine 1.4 H Est GFR ( Amer) 47 Est GFR (Non-Af Amer) 39 Random Glucose 93 Calcium 9.1 Total Bilirubin 0.1 L AST 41 H D ALT 42 Alkaline Phosphatase 51 Troponin I Total Protein 5.5 L Albumin 3.3 Globulin 2.2 Albumin/Globulin Ratio 1.5 Lipase Carcinoembryonic Ag CA 125 Antigen Vitamin B12 25-OH Vitamin D Total Free T4 0.85 Free T3 pg/mL TSH 3rd Generation 2.62 Urine Color Urine Appearance Urine pH Ur Specific Joes Urine Protein Urine Glucose (UA) Urine Ketones Urine Blood Urine Nitrate Urine Bilirubin Urine Urobilinogen Ur Leukocyte Esterase Urine RBC Urine WBC Ur Epithelial Cells Urine Bacteria Ur Random Sodium 05/27/18 05/27/18 05/27/18 07:15 07:15 07:39 WBC RBC Hgb Hct MCV MCH MCHC RDW Plt Count MPV Gran % Lymph % (Auto) [place] % (Auto) Eos % (Auto) Baso % (Auto) Gran # Lymph # (Auto) Cecil # (Auto) Eos # (Auto) Baso # (Auto) PT 10.9 INR 0.95 APTT 32.4 Sodium Potassium Chloride Carbon Dioxide Anion Gap BUN Creatinine Est GFR ( Amer) Est GFR (Non-Af Amer) Random Glucose Calcium Total Bilirubin AST ALT Alkaline Phosphatase Troponin I < 0.01 Total Protein Albumin Globulin Albumin/Globulin Ratio Lipase Carcinoembryonic Ag CA 125 Antigen Vitamin B12 25-OH Vitamin D Total 51.6 Free T4 Free T3 pg/mL TSH 3rd Generation Urine Color Urine Appearance Urine pH Ur Specific Joes Urine Protein Urine Glucose (UA) Urine Ketones Urine Blood Urine Nitrate Urine Bilirubin Urine Urobilinogen Ur Leukocyte Esterase Urine RBC Urine WBC Ur Epithelial Cells Urine Bacteria Ur Random Sodium 05/27/18 05/27/18 05/27/18 07:45 07:45 07:50 WBC RBC Hgb Hct MCV MCH MCHC RDW Plt Count MPV Gran % Lymph % (Auto) Cecil % (Auto) Eos % (Auto) Baso % (Auto) Gran # Lymph # (Auto) Cecil # (Auto) Eos # (Auto) Baso # (Auto) PT INR APTT Sodium Potassium Chloride Carbon Dioxide Anion Gap BUN Creatinine Est GFR ( Amer) Est GFR (Non-Af Amer) Random Glucose Calcium Total Bilirubin AST ALT Alkaline Phosphatase Troponin I Total Protein Albumin Globulin Albumin/Globulin Ratio Lipase 200 Carcinoembryonic Ag 5.2 H CA 125 Antigen < 5.5 Vitamin B12 437 25-OH Vitamin D Total Free T4 Free T3 pg/mL TSH 3rd Generation Urine Color Light yellow Urine Appearance Clear Urine pH 5.0 Ur Specific Joes <= 1.005 Urine Protein Negative Urine Glucose (UA) Negative Urine Ketones Negative Urine Blood Negative Urine Nitrate Negative Urine Bilirubin Negative Urine Urobilinogen 0.2 Ur Leukocyte Esterase Trace H Urine RBC 0 - 2 Urine WBC 2 - 5 Ur Epithelial Cells 3 - 4 Urine Bacteria Few Ur Random Sodium
[2018-05-27] MEDS ORDERED: Albuterol-Ipratrop 3 mg / 0.5 (3 ml) UD IH PRN (14:51)
--- NOTE | 2018-05-27 15:25 | CARD ---
APPROVED REPORT Date of service: 05/27/2018 EKG Measurement Heart [id number] <Conclusion> Normal sinus rhythm Possible Left atrial enlargement Anterior infarct, age undetermined Abnormal ECG
--- NOTE | 2018-05-27 17:15 | CP.PCM.CON ---
History of Present Illness - History of Present Illness History of Present Illness: 57 year old AA female with PMHx of colitis, endometriosis, depression who presented to the ED with complaints of a headache, nausea, and dizziness. Pt states that she has had a worsening headache for the past 2 weeks, described as intermittent, located on the left temporal region, sharp, stabbing, 10/10. Pt states that the pain sometimes radiates across her forehead to the right temporal region. She denies any exacerbating events, and states that it is only mildly alleviated with Aleve which brings the pain down to a 8/10. Pt denies visual problems, no claudication of jaw while chewing, weakness, numbness or tingling, falls. Pt denies any history of migraines. Pt is also reporting abdominal pain for the past 1 week, associated with 2-3 episodes of diarrhea per day. Diarrhea is mostly liquid brown, but sometimes black. Abdominal pain is intermittent sharp, 7/10 and located across the lower abdomen, without alleviating or exacerbating symptoms. She states that she has lost 12 pounds over the past week, and has had decreased appetite and nausea, due to being afraid to eat. Pt reports intermittent SOB over the past week that she noticed worsens when walking, associated with a sharp pain in the middle of chest, nonradiating. She reports that she is getting over a dry cough, with congestion and sore throat for the past 2 weeks. She denies fever, chills, rash , sick contacts, recent travel. A 12-point ROS was reviewed and is otherwise unremarkable. In the ED, Abdominal/pelvic CT with IV contrast which showed pericardial effusion. Chest CT showed small volume of pericardial fluid. PMD: Deduosis Psych: Dr Calvillo PMHx: colitis 2015, endometriosis, kidney issues when a teenage but hasn't had any problems since, 8 herniated discs with chronic back pain, depression, PSHx: fibroids removal with ultimate hysterectomy in early 1999s FHx: granfather with pancreaatic cancer, aunt with metastatic breast cancer diagnosed in early 60s and soon after dx Meds: trazodone, alprazolam xr, venlafaxine, vitamin d, multivitamins Allx: NKDA Social Hx: smokes 1-2 cigs per day, 20 pack year history, quit etoh 26 years ago , denies illicit drugs use for over 20 years (no history of IV drug use) Past Patient History - Infectious Disease Hx of Infectious Diseases: None - Tetanus Immunizations Tetanus Immunization: Unknown - Past Social History Smoking Status: Light Smoker < 10 Cigarettes Daily - CARDIAC Hx Cardiac Disorders: Yes - PULMONARY Hx Respiratory Disorders: No - NEUROLOGICAL Hx Neurological Disorder: No - HEENT Hx HEENT Problems: No - RENAL Hx Chronic Kidney Disease: No - ENDOCRINE/METABOLIC Hx Endocrine Disorders: No - HEMATOLOGICAL/ONCOLOGICAL Hx Blood Disorders: No - INTEGUMENTARY Hx Dermatological Problems: No - MUSCULOSKELETAL/RHEUMATOLOGICAL Hx Falls: No - GASTROINTESTINAL Hx Gastrointestinal Disorders: No - GENITOURINARY/GYNECOLOGICAL Hx Genitourinary Disorders: No - PSYCHIATRIC Hx Psychophysiologic Disorder: No Hx Substance Use: No - SURGICAL HISTORY Hx Hysterectomy: Yes - ANESTHESIA Hx Anesthesia Reactions: No Hx Malignant Hyperthermia: No Meds Allergies/Adverse Reactions: Allergies Allergy/AdvReac Type Severity Reaction Status Date / Time No Known Allergies Allergy Verified 05/26/18 17:35 - Medications Medications: Current Medications Acetaminophen (Tylenol 325mg Tab) 650 mg PO Q6H PRN PRN Reason: Headache Last Admin: 05/27/18 04:17 Dose: 650 mg Albuterol/Ipratropium (Duoneb 3 Mg/0.5 Mg (3 Ml) Ud) 3 ml IH Q2H PRN PRN Reason: Shortness of Breath Alprazolam (Xanax) 0.5 mg PO BID PRN; Protocol PRN Reason: Anxiety Last Admin: 05/27/18 13:15 Dose: 0.5 mg Home Med (Home Med) 1 unit PO DAILY [facility] Last Admin: 05/27/18 13:15 Dose: Not Given Sodium Chloride (Sodium Chloride 0.9%) 1,000 mls @ 100 mls/hr IV .Q10H TED Last Admin: 05/27/18 04:18 Dose: 100 mls/hr Ondansetron HCl (Zofran Inj) 4 mg IVP Q4H PRN PRN Reason: Nausea/Vomiting Last Admin: 05/27/18 08:53 Dose: 4 mg Pantoprazole Sodium (Protonix Ec Tab) 40 mg PO 0600 [facility] Last Admin: 05/27/18 05:55 Dose: 40 mg Trazodone HCl (Desyrel) 100 mg PO HS TED Venlafaxine HCl (Effexor Xr) 150 mg PO DAILY TED Last Admin: 05/27/18 08:59 Dose: 150 mg Results - Vital Signs Recent Vital Signs: Last Vital Signs Temp 98.5 F 05/27/18 16:00 Pulse 74 05/27/18 16:00 Resp 18 05/27/18 16:00 BP 139/90 05/27/18 16:00 Pulse Ox 99 05/27/18 16:00 - Labs Result Diagrams: 05/27/18 07:15 05/27/18 07:15 Labs: Laboratory Results - last 24 hr 05/27/18 05/27/18 05/27/18 01:45 07:00 07:15 WBC RBC Hgb Hct MCV MCH MCHC RDW Plt Count MPV Gran % Lymph % (Auto) [place] % (Auto) Eos % (Auto) Baso % (Auto) Gran # Lymph # (Auto) [place] # (Auto) Eos # (Auto) Baso # (Auto) PT INR APTT Sodium Potassium Chloride Carbon Dioxide Anion Gap BUN Creatinine Est GFR ( Amer) Est GFR (Non-Af Amer) Random Glucose Calcium Total Bilirubin AST ALT Alkaline Phosphatase Troponin I < 0.01 NT-Pro-B Natriuret Pep Total Protein Albumin Globulin Albumin/Globulin Ratio Lipase Carcinoembryonic Ag CA 125 Antigen Vitamin B12 25-OH Vitamin D Total Free T4 Free T3 pg/mL 2.99 TSH 3rd Generation Urine Color Urine Appearance Urine pH Ur Specific [place] Urine Protein Urine Glucose (UA) Urine Ketones Urine Blood Urine Nitrate Urine Bilirubin Urine Urobilinogen Ur Leukocyte Esterase Urine RBC Urine WBC Ur Epithelial Cells Urine Bacteria Ur Random Creatinine Ur Random Sodium 37 05/27/18 05/27/18 05/27/18 07:15 07:15 07:15 WBC 5.7 RBC 3.92 Hgb 11.6 L Hct 34.4 L MCV 87.8 MCH 29.6 MCHC 33.7 RDW 13.0 Plt Count 227 MPV 10.1 Gran % 54.3 Lymph % (Auto) 39.1 H [place] % (Auto) 5.0 Eos % (Auto) 0.7 L Baso % (Auto) 0.9 Gran # 3.07 Lymph # (Auto) 2.2 [place] # (Auto) 0.3 Eos # (Auto) 0.0 Baso # (Auto) 0.05 PT INR APTT Sodium 141 Potassium 4.3 Chloride 108 H Carbon Dioxide 27 Anion Gap 10 BUN 20 Creatinine 1.4 H Est GFR ( Amer) 47 Est GFR (Non-Af Amer) 39 Random Glucose 93 Calcium 9.1 Total Bilirubin 0.1 L AST 41 H D ALT 42 Alkaline Phosphatase 51 Troponin I NT-Pro-B Natriuret Pep Total Protein 5.5 L Albumin 3.3 Globulin 2.2 Albumin/Globulin Ratio 1.5 Lipase Carcinoembryonic Ag CA 125 Antigen Vitamin B12 25-OH Vitamin D Total Free T4 0.85 Free T3 pg/mL TSH 3rd Generation 2.62 Urine Color Urine Appearance Urine pH Ur Specific [place] Urine Protein Urine Glucose (UA) Urine Ketones Urine Blood Urine Nitrate Urine Bilirubin Urine Urobilinogen Ur Leukocyte Esterase Urine RBC Urine WBC Ur Epithelial Cells Urine Bacteria Ur Random Creatinine Ur Random Sodium 05/27/18 05/27/18 05/27/18 07:15 07:15 07:39 WBC RBC Hgb Hct MCV MCH MCHC RDW Plt Count MPV Gran % Lymph % (Auto) [place] % (Auto) Eos % (Auto) Baso % (Auto) Gran # Lymph # (Auto) [place] # (Auto) Eos # (Auto) Baso # (Auto) PT 10.9 INR 0.95 APTT 32.4 Sodium Potassium Chloride Carbon Dioxide Anion Gap BUN Creatinine Est GFR ( Amer) Est GFR (Non-Af Amer) Random Glucose Calcium Total Bilirubin AST ALT Alkaline Phosphatase Troponin I < 0.01 NT-Pro-B Natriuret Pep Total Protein Albumin Globulin Albumin/Globulin Ratio Lipase Carcinoembryonic Ag CA 125 Antigen Vitamin B12 25-OH Vitamin D Total 51.6 Free T4 Free T3 pg/mL TSH 3rd Generation Urine Color Urine Appearance Urine pH Ur Specific [place] Urine Protein Urine Glucose (UA) Urine Ketones Urine Blood Urine Nitrate Urine Bilirubin Urine Urobilinogen Ur Leukocyte Esterase Urine RBC Urine WBC Ur Epithelial Cells Urine Bacteria Ur Random Creatinine Ur Random Sodium 05/27/18 05/27/18 05/27/18 07:45 07:45 07:50 WBC RBC Hgb Hct MCV MCH MCHC RDW Plt Count MPV Gran % Lymph % (Auto) [place] % (Auto) Eos % (Auto) Baso % (Auto) Gran # Lymph # (Auto) [place] # (Auto) Eos # (Auto) Baso # (Auto) PT INR APTT Sodium Potassium Chloride Carbon Dioxide Anion Gap BUN Creatinine Est GFR ( Amer) Est GFR (Non-Af Amer) Random Glucose Calcium Total Bilirubin AST ALT Alkaline Phosphatase Troponin I NT-Pro-B Natriuret Pep Total Protein Albumin Globulin Albumin/Globulin Ratio Lipase 200 Carcinoembryonic Ag 5.2 H CA 125 Antigen < 5.5 Vitamin B12 437 25-OH Vitamin D Total Free T4 Free T3 pg/mL TSH 3rd Generation Urine Color Light yellow Urine Appearance Clear Urine pH 5.0 Ur Specific [place] <= 1.005 Urine Protein Negative Urine Glucose (UA) Negative Urine Ketones Negative Urine Blood Negative Urine Nitrate Negative Urine Bilirubin Negative Urine Urobilinogen 0.2 Ur Leukocyte Esterase Trace H Urine RBC 0 - 2 Urine WBC 2 - 5 Ur Epithelial Cells 3 - 4 Urine Bacteria Few Ur Random Creatinine Ur Random Sodium 05/27/18 05/27/18 07:50 15:52 WBC RBC Hgb Hct MCV MCH MCHC RDW Plt Count MPV Gran % Lymph % (Auto) [place] % (Auto) Eos % (Auto) Baso % (Auto) Gran # Lymph # (Auto) [place] # (Auto) Eos # (Auto) Baso # (Auto) PT INR APTT Sodium Potassium Chloride Carbon Dioxide Anion Gap BUN Creatinine Est GFR ( Amer) Est GFR (Non-Af Amer) Random Glucose Calcium Total Bilirubin AST ALT Alkaline Phosphatase Troponin I NT-Pro-B Natriuret Pep 1790 H Total Protein Albumin Globulin Albumin/Globulin Ratio Lipase Carcinoembryonic Ag CA 125 Antigen Vitamin B12 25-OH Vitamin D Total Free T4 Free T3 pg/mL TSH 3rd Generation Urine Color Urine Appearance Urine pH Ur Specific [place] Urine Protein Urine Glucose (UA) Urine Ketones Urine Blood Urine Nitrate Urine Bilirubin Urine Urobilinogen Ur Leukocyte Esterase Urine RBC Urine WBC Ur Epithelial Cells Urine Bacteria Ur Random Creatinine 40 Ur Random Sodium Assessment & Plan - Assessment and Plan (Free Text) Assessment: 57 yr old woman who may have temporal arteritis, based on history and age. I also feel that the history of profound GI illness over john last several weeks has had an impact on the development of headache. Plan: 1. ESR, CRP 2. IF above are elevated would start high dose prednisone: 80 mg po daily and acyclovir 800 mg tid. Thank you for consulting neurology Dr. Martín Bermudez MD
[2018-05-27] MEDS ORDERED: Morphine 2 mg/ml ISec IVP STA (17:41)
--- NOTE | 2018-05-27 19:29 | CARD ---
APPROVED REPORT Date of service: 05/27/2018 EXAM: Two-dimensional and M-mode echocardiogram with Doppler and color Doppler. INDICATION Pericardial Effusion 2D DIMENSIONS Left Atrium (2D)5.0 (1.6-4.0cm)IVSd1.2 (0.7-1.1cm) LVDd4.3 (3.9-5.9cm)PWd1.2 (0.7-1.1cm) LVDs2.7 (2.5-4.0cm)FS (%) 36.7 % LVEF (%)66.9 (>50%) M-Mode DIMENSIONS Aortic Root2.40 (2.2-3.7cm)Aortic Cusp Exc.1.80 (1.5-2.0cm) Mitral Valve MV E Abofbomv284.0cm/sMV E Peak Gr.31mmHgMV A Vanqfaia283.0cm/s MV E Mean Gr.15mmHgMV [id number]/A ratio1.4 MVA (PHT)1.27cm2 TDI E/Lateral E'0.0E/Medial E'0.0 Tricuspid Valve TR Peak Fuymellb564nt/sRAP [id number] Peak Gr.56mmHg [id number] LEFT VENTRICLE The left ventricle is normal size. There is mild concentric left ventricular hypertrophy. The left ventricular function is normal.EF-65% There is normal LV segmental wall motion. Transmitral Doppler flow pattern is Grade II-pseudonormal filling dynamics. No left ventricle thrombus noted on this study. There is no ventricular septal defect visualized. There is no left ventricular aneurysm. There is no mass noted in the left ventricle. RIGHT VENTRICLE The right ventricle is mildly dilated. There is normal right ventricular wall thickness. Systolic function is mildly reduced. ATRIA The left atrium is moderately dilated. The right atrium is borderline dilated. The interatrial septum is intact with no evidence for an atrial septal defect. AORTIC VALVE The aortic valve is thickened but opens well. No aortic regurgitation is present. There is no aortic valvular stenosis. There is no aortic valvular vegetation. MITRAL VALVE The mitral valve is moderately thickened with decrease opening , Morphology C/w rheumatic Mitral Valve. Mitral regurgitation is severe. Doming of the mitral leaflets is noted. There is moderate mitral valve stenosis. There is no evidence of mitral valve prolapse. TRICUSPID VALVE The tricuspid valve leaflets are thickened , but open well. There is mild to moderate tricuspid regurgitation.RVSP-66 mmof hg. There is no tricuspid valve stenosis. There is no tricuspid valve prolapse or vegetation. PULMONIC VALVE The pulmonic valve is mildly thickened. There is mild pulmonic valvular regurgitation. There is no pulmonic valvular stenosis. GREAT VESSELS The aortic root is normal in size. The ascending aorta is normal in size. The pulmonary artery is normal. The IVC is normal in size and collapses >50% with inspiration. PERICARDIAL EFFUSION There is no pleural effusion. There is a trace pericardial effusion. <Conclusion> The left ventricle is normal size. There is mild concentric left ventricular hypertrophy. The left ventricular function is normal.Ef-65% The mitral valve is moderately thickened with decrease opening , Morphology C/w rheumatic Mitral Valve. Doming of the mitral leaflets is noted. There is moderate mitral valve stenosis. Mitral regurgitation is severe. There is mild to moderate tricuspid regurgitation.RVSP-66 mmof hg. There is a trace pericardial effusion. The IVC is normal in size and collapses >50% with inspiration.
--- NOTE | 2018-05-27 20:10 | CON ---
DATE: 05/27/2018 CARDIOLOGY CONSULTATION HISTORY OF PRESENT ILLNESS: The patient is a 57-year-old woman who presented with 2 weeks of progressive shortness of breath. In addition, she presents with malaise. PAST MEDICAL HISTORY: Free of cardiac history. She does suffer from anxiety and depression in which she has been treated with medications by her therapist. No previous rheumatic fever. No previous diabetes mellitus. No previous hypertension. SOCIAL HISTORY: Smoking, she does admit to smoking 2-6 cigarettes a day for many years. REVIEW OF SYSTEMS: A 14-point review of systems reviewed. No angina. Positive shortness of breath. Negative edema. Prior to 2 weeks ago, the patient was able to ambulate without issues and able to climb steps without problems. PHYSICAL EXAMINATION: VITAL SIGNS: Blood pressure varies from 106 to 123 systolic, heart rate is in the 70s. NECK: Negative JVD. LUNGS: Without rales. HEART: Reveals 3/6 systolic ejection murmur to the apex. EXTREMITIES: Without edema. EKG shows normal sinus rhythm with nonspecific ST-T changes. LABORATORY DATA: PT/INR is 0.95. Chemistries, BUN and creatinine are 20 and 1.4 with a GFR of 47. Hemoglobin is 11.6. Echocardiogram reveals good LV function with calcified mitral valve and severe mitral regurgitation. IMPRESSION: 1. Two weeks of progressive dyspnea. 2. Severe mitral regurgitation. 3. Anemia. 4. Malaise. Given these findings, we will transfer the patient to telemetry today. The patient will need cardiac catheterization to evaluate her mitral valve with the possibility of needing mitral valve surgery. Matthew Mckeon MD
[2018-05-27] MEDS: Morphine 2 mg/ml ISec IVP PRN (21:27)
[2018-05-28] MEDS: Pantoprazole 40 mg EC Tab PO SCH (05:36)
[2018-05-28] MEDS ORDERED: Sodium Chloride 0.9% 1,000 ML IV SCH ×2 (06:30→11:31)
[2018-05-28 07:22] LABS: HEMOGLOBIN 11.4 g/dL (12.0-16.0); MEAN CELL VOLUME 87.8 fl (80.0-105.0); MEAN PLATELET VOLUME 10.5 fl (7.0-11.0); RBC 3.93 10^6/uL (3.5-6.1); WHITE BLOOD COUNT 6.6 10^3/ul (4.5-11.0)
[2018-05-28 07:34] LABS: ALB/GLOB RATIO 1.4 (1.1-1.8); ALBUMIN 3.4 g/dL (3.0-4.8); ALT/SGPT 52 U/L (7-56); AST/SGOT 36 U/L (14-36); BLOOD UREA NITROGEN 20 mg/dL (7-21); CALCIUM 9.1 mg/dL (8.4-10.5); GFR NON-AFRICAN AMERICAN 39
[2018-05-28] MEDS ORDERED: Nitroglycerin 50mg in D5W 50 MG/250 ML BOTTLE IV ONE (09:50)
[2018-05-28] MEDS ORDERED: Iohexol 350mgl/ml 50 ML ONE (09:50)
[2018-05-28] MEDS ORDERED: Iodixanol 320 MG/ML 200 ML BOTTLE IV ONE (09:50)
[2018-05-28] MEDS ORDERED: Heparin 2,000 ML IV ONE (09:50)
[2018-05-28] MEDS ORDERED: Iodixanol 320 MG/ML 100 ML BOTTLE IV ONE (09:50)
[2018-05-28] MEDS ORDERED: Midazolam 2 MG/2 ML VIAL ONE ×3 (10:06→10:50)
--- NOTE | 2018-05-28 10:26 | CP.PCM.CON ---
<Zach Peralta - Last Filed: 05/28/18 15:43> History of Present Illness - History of Present Illness History of Present Illness: GI Fellow PGY4 consult note, Summer Nichols is a very pleasant 57yo F presenting with 2 weeks of abdominal pain , diarrhea, nausea. The abdominal pain is constant, some times are 10/10, located in lower abdomen. Having a BM makes it feel better. Food does not change severity. She has been unable to eat much food due to nausea. Denies significant vomiting. The diarrhea started two weeks ago and progressively became worse. Stool is loose, brown, multiple times per day. She tried peptobismol with minimal effect. The diarrhea is associated with eating, but no specific food makes it worse. She denies sick contacts, recently undercooked food, recent travel. She has associated weight loss of 12lbs in the last two weeks and admits she has had several night time accidents, incontinence. She denies the stool as greasy or floating. PMHx - depression, insomnia PSHx - none. CSPY 2014, normal. FMHx - denies GI related diseases including pancreatic cancer. SocHx - 20+ pack/yr history. Previously heavy etoh user but does no drink for last 26yrs. 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 12pt ROS neg except for above. Past Patient History - Infectious Disease Hx of Infectious Diseases: None - Tetanus Immunizations Tetanus Immunization: Unknown - Past Social History Smoking Status: Light Smoker < 10 Cigarettes Daily - CARDIAC Hx Cardiac Disorders: Yes - PULMONARY Hx Respiratory Disorders: No - NEUROLOGICAL Hx Neurological Disorder: No - HEENT Hx HEENT Problems: No - RENAL Hx Chronic Kidney Disease: No - ENDOCRINE/METABOLIC Hx Endocrine Disorders: No - HEMATOLOGICAL/ONCOLOGICAL Hx Blood Disorders: No - INTEGUMENTARY Hx Dermatological Problems: No - MUSCULOSKELETAL/RHEUMATOLOGICAL Hx Falls: No - GASTROINTESTINAL Hx Gastrointestinal Disorders: No - GENITOURINARY/GYNECOLOGICAL Hx Genitourinary Disorders: No - PSYCHIATRIC Hx Psychophysiologic Disorder: No Hx Substance Use: No - SURGICAL HISTORY Hx Hysterectomy: Yes - ANESTHESIA Hx Anesthesia Reactions: No Hx Malignant Hyperthermia: No Meds Allergies/Adverse Reactions: Allergies Allergy/AdvReac Type Severity Reaction Status Date / Time No Known Allergies Allergy Verified 05/26/18 17:35 - Medications Medications: Current Medications Acetaminophen (Tylenol 325mg Tab) 650 mg PO Q6H PRN PRN Reason: Headache Last Admin: 05/27/18 04:17 Dose: 650 mg Albuterol/Ipratropium (Duoneb 3 Mg/0.5 Mg (3 Ml) Ud) 3 ml IH Q2H PRN PRN Reason: Shortness of Breath Alprazolam (Xanax) 0.5 mg PO BID PRN; Protocol PRN Reason: Anxiety Last Admin: 05/27/18 22:14 Dose: 0.5 mg Home Med (Home Med) 1 unit PO DAILY [facility] Last Admin: 05/27/18 13:15 Dose: Not Given Sodium Chloride (Sodium Chloride 0.9%) 1,000 mls @ 75 mls/hr IV .[id number] [facility] Morphine Sulfate (Morphine) 0.5 mg IVP Q4H PRN PRN Reason: Pain, moderate (4-7) Last Admin: 05/27/18 21:27 Dose: 0.5 mg Ondansetron HCl (Zofran Inj) 4 mg IVP Q4H PRN PRN Reason: Nausea/Vomiting Last Admin: 05/27/18 08:53 Dose: 4 mg Pantoprazole Sodium (Protonix Ec Tab) 40 mg PO 0600 [facility] Last Admin: 05/28/18 05:36 Dose: 40 mg Trazodone HCl (Desyrel) 100 mg PO HS [facility] Last Admin: 05/27/18 21:27 Dose: 100 mg Venlafaxine HCl (Effexor Xr) 150 mg PO DAILY [facility] Last Admin: 05/27/18 08:59 Dose: 150 mg Physical Exam - Constitutional Appears: Non-toxic, No Acute Distress - Head Exam Head Exam: NORMAL INSPECTION - Eye Exam Eye Exam: Normal appearance - ENT Exam ENT Exam: Mucous Membranes Moist - Respiratory Exam Respiratory Exam: Clear to Auscultation Bilateral, NORMAL BREATHING PATTERN - Cardiovascular Exam Cardiovascular Exam: REGULAR RHYTHM, Systolic Murmur - GI/Abdominal Exam GI & Abdominal Exam: Normal Bowel Sounds. absent: Guarding, Organomegaly, Tenderness - Rectal Exam Rectal Exam: Deferred - Extremities Exam Extremities exam: Positive for: normal inspection - Neurological Exam Neurological exam: Alert, CN II-XII Intact, Oriented x3 - Psychiatric Exam Psychiatric exam: Normal Affect, Normal Mood - Skin Skin Exam: Dry, Normal Color Results - Vital Signs Recent Vital Signs: Last Vital Signs Temp 98.8 F 05/28/18 05:59 Pulse 101 H 05/28/18 06:00 Resp 20 05/28/18 05:59 BP 130/88 05/28/18 05:59 Pulse Ox 96 05/28/18 05:59 - Labs Result Diagrams: 05/28/18 06:30 05/28/18 06:30 Labs: Laboratory Results - last 24 hr 05/27/18 05/27/18 05/27/18 07:00 07:15 07:39 WBC RBC Hgb Hct MCV MCH MCHC RDW Plt Count MPV ESR Sodium Potassium Chloride Carbon Dioxide Anion Gap BUN Creatinine Est GFR ( Amer) Est GFR (Non-Af Amer) Random Glucose Calcium Total Bilirubin AST ALT Alkaline Phosphatase Troponin I C-Reactive Protein NT-Pro-B Natriuret Pep Total Protein Albumin Globulin Albumin/Globulin Ratio CA 19-9 Antigen CA 125 Antigen Vitamin B12 25-OH Vitamin D Total 51.6 Free T3 pg/mL 2.99 Ur Random Creatinine Stool Leukocytes, Qual HIV 1&2 Ag/Ab, 4th Gen Nonreactive 05/27/18 05/27/18 05/27/18 07:45 07:50 10:00 WBC RBC Hgb Hct MCV MCH MCHC RDW Plt Count MPV ESR Sodium Potassium Chloride Carbon Dioxide Anion Gap BUN Creatinine Est GFR ( Amer) Est GFR (Non-Af Amer) Random Glucose Calcium Total Bilirubin AST ALT Alkaline Phosphatase Troponin I C-Reactive Protein NT-Pro-B Natriuret Pep Total Protein Albumin Globulin Albumin/Globulin Ratio CA 19-9 Antigen 43.7 H CA 125 Antigen < 5.5 Vitamin B12 437 25-OH Vitamin D Total Free T3 pg/mL Ur Random Creatinine 40 Stool Leukocytes, Qual Negative HIV 1&2 Ag/Ab, 4th Gen 05/27/18 05/27/18 05/27/18 15:52 18:33 18:33 WBC RBC Hgb Hct MCV MCH MCHC RDW Plt Count MPV ESR 10 Sodium Potassium Chloride Carbon Dioxide Anion Gap BUN Creatinine Est GFR ( Amer) Est GFR (Non-Af Amer) Random Glucose Calcium Total Bilirubin AST ALT Alkaline Phosphatase Troponin I < 0.01 C-Reactive Protein Cancelled NT-Pro-B Natriuret Pep 1790 H Total Protein Albumin Globulin Albumin/Globulin Ratio CA 19-9 Antigen CA 125 Antigen Vitamin B12 25-OH Vitamin D Total Free T3 pg/mL Ur Random Creatinine Stool Leukocytes, Qual HIV 1&2 Ag/Ab, 4th Gen 05/28/18 05/28/18 06:30 06:30 WBC 6.6 RBC 3.93 Hgb 11.4 L Hct 34.5 L MCV 87.8 MCH 29.0 MCHC 33.0 RDW 13.0 Plt Count 234 MPV 10.5 ESR Sodium 143 Potassium 4.2 Chloride 110 H Carbon Dioxide 29 Anion Gap 8 L BUN 20 Creatinine 1.4 H Est GFR ( Amer) 47 Est GFR (Non-Af Amer) 39 Random Glucose 85 Calcium 9.1 Total Bilirubin 0.3 AST 36 ALT 52 Alkaline Phosphatase 52 Troponin I C-Reactive Protein NT-Pro-B Natriuret Pep Total Protein 5.7 L Albumin 3.4 Globulin 2.4 Albumin/Globulin Ratio 1.4 CA 19-9 Antigen CA 125 Antigen Vitamin B12 25-OH Vitamin D Total Free T3 pg/mL Ur Random Creatinine Stool Leukocytes, Qual HIV 1&2 Ag/Ab, 4th Gen Assessment & Plan - Assessment and Plan (Free Text) Assessment: #Abdominal pain #Acute diarrhea #wt. loss #Chest pain - cardiac cath 05/28/18 #Valvular heart disease, severe MR #CARMELA #Headache - There is concern for GCA #Pulm HTN - RVSP 66 PLAN: -CT abd/pelv with oral contrast reviewed, no obvious lesions or obvious abnormalities, However now IV contrast so difficult to assess pancreas. -CEA and CA 19-9 elevated. Colonoscopy 2014 normal path. -Stool leukocytes neg. Negative Ova/parasites -If pain, symptoms continue. Recommend better imaging of pancreas when CARMELA resolves and well after cath (contrast). Pancreas CT protocol vs MRCP/MRI. -No planned procedures at this time due to recent cardiac findings, pulm HTN. -Follow up stool studies - Date & Time Date: 05/28/18 Time: 10:44 <Shan Man V - Last Filed: 05/28/18 22:31> Meds - Medications Medications: Current Medications Acetaminophen (Tylenol 325mg Tab) 650 mg PO Q6H PRN PRN Reason: Headache Last Admin: 05/27/18 04:17 Dose: 650 mg Albuterol/Ipratropium (Duoneb 3 Mg/0.5 Mg (3 Ml) Ud) 3 ml IH Q2H PRN PRN Reason: Shortness of Breath Alprazolam (Xanax) 0.5 mg PO BID PRN; Protocol PRN Reason: Anxiety Last Admin: 05/28/18 12:24 Dose: 0.5 mg Home Med (Home Med) 1 unit PO DAILY [facility] Last Admin: 05/28/18 12:29 Dose: Not Given Sodium Chloride (Sodium Chloride 0.9%) 1,000 mls @ 150 mls/hr IV .Q6H40M [facility] Stop: 05/29/18 00:50 Last Admin: 05/28/18 15:00 Dose: 150 mls/hr Morphine Sulfate (Morphine) 1 mg IVP Q4H PRN PRN Reason: Pain, moderate (4-7) Last Admin: 05/28/18 20:29 Dose: 1 mg Ondansetron HCl (Zofran Inj) 4 mg IVP Q4H PRN PRN Reason: Nausea/Vomiting Last Admin: 05/27/18 08:53 Dose: 4 mg Pantoprazole Sodium (Protonix Ec Tab) 40 mg PO 0600 [facility] Last Admin: 05/28/18 05:36 Dose: 40 mg Trazodone HCl (Desyrel) 100 mg PO HS [facility] Last Admin: 05/27/18 21:27 Dose: 100 mg Venlafaxine HCl (Effexor Xr) 150 mg PO DAILY [facility] Last Admin: 05/28/18 12:24 Dose: 150 mg Results - Vital Signs Recent Vital Signs: Last Vital Signs Temp 97.8 F 05/28/18 18:06 Pulse 82 05/28/18 18:06 Resp 20 05/28/18 18:06 BP 126/88 05/28/18 18:06 Pulse Ox 96 05/28/18 05:59 - Labs Result Diagrams: 05/28/18 06:30 05/28/18 06:30 Attending/Attestation - Attestation I have personally seen and examined this patient.: Yes I have fully participated in the care of the patient.: Yes I have reviewed all pertinent clinical information: Yes Notes (Text): This is an addendum to GI consult report dictated by the GI Fellow.The patient was seen and examined earlier. Medical records, lab studies, imagings were reviewed. Last 24 hours events reviewed. Agreed with the above treatment plan as outlined in GI Fellow 's notes with the addition of the following Chronic diarrhea weight loss Patient has some tenderness in the upper left quad status post cardiac cath On examination mild tenderness in the upper left quadrant area Imagining studies were reviewed continue antibiotics would benefit from EGD colon after optimization 05/28/18 22:27
[2018-05-28] MEDS: Venlafaxine 75 mg ER Cap PO SCH (12:24)
[2018-05-28] MEDS: Morphine 2 mg/ml ISec IVP PRN ×3 (12:25→20:29)
[2018-05-28] MEDS: ALPRAZOLAM 0.5 MG PO SCH (12:29)
--- NOTE | 2018-05-28 12:36 | CP.PCM.PN ---
<Danis Ballard - Last Filed: 05/28/18 17:13> Subjective - Date & Time of Evaluation Date of Evaluation: 05/28/18 Time of Evaluation: 07:00 - Subjective Subjective: Danis Ballard PGY1 Medicine Progress Note for Dr. Ordaz Patient was seen and examined at bedside this morning. No overnight changes. Patient was examined at bedside this morning. She is still experiencing headaches. She was complaining of 9/10 chest pain this morning. Patient went for cardiac cath after interview. Patient was later re-examined s/p cardiac cath. She is feeling better after the procedure. Findings were d/w the patient. Currently, she denies shortness of breath, abdominal pain, nausea, vomiting, diarrhea, and numbness and tingling of extremities. She has not had any bowel movements. A full 12 point ROS was conducted and unremarkable except as stated above. Objective - Vital Signs/Intake and Output Vital Signs (last 24 hours): Temp Pulse Resp BP Pulse Ox 98.8 F 101 H 20 130/88 96 05/28/18 05:59 05/28/18 06:00 05/28/18 05:59 05/28/18 05:59 05/28/18 05:59 Intake and Output: 05/28/18 05/28/18 06:59 18:59 Intake Total 360 Output Total 0 Balance 360 - Medications Medications: Current Medications Acetaminophen (Tylenol 325mg Tab) 650 mg PO Q6H PRN PRN Reason: Headache Last Admin: 05/27/18 04:17 Dose: 650 mg Albuterol/Ipratropium (Duoneb 3 Mg/0.5 Mg (3 Ml) Ud) 3 ml IH Q2H PRN PRN Reason: Shortness of Breath Alprazolam (Xanax) 0.5 mg PO BID PRN; Protocol PRN Reason: Anxiety Last Admin: 05/28/18 12:24 Dose: 0.5 mg Home Med (Home Med) 1 unit PO DAILY [facility] Last Admin: 05/28/18 12:29 Dose: Not Given Sodium Chloride (Sodium Chloride 0.9%) 1,000 mls @ 50 mls/hr IV .Q20H [facility] Stop: 05/28/18 15:00 Last Admin: 05/28/18 12:18 Dose: 50 mls/hr Morphine Sulfate (Morphine) 0.5 mg IVP Q4H PRN PRN Reason: Pain, moderate (4-7) Last Admin: 05/28/18 12:25 Dose: 0.5 mg Ondansetron HCl (Zofran Inj) 4 mg IVP Q4H PRN PRN Reason: Nausea/Vomiting Last Admin: 05/27/18 08:53 Dose: 4 mg Pantoprazole Sodium (Protonix Ec Tab) 40 mg PO 0600 [facility] Last Admin: 05/28/18 05:36 Dose: 40 mg Trazodone HCl (Desyrel) 100 mg PO HS [facility] Last Admin: 05/27/18 21:27 Dose: 100 mg Venlafaxine HCl (Effexor Xr) 150 mg PO DAILY [facility] Last Admin: 05/28/18 12:24 Dose: 150 mg - Labs Labs: 05/28/18 06:30 05/28/18 06:30 PT 10.9 SECONDS (9.4-12.5) 05/27/18 07:15 INR 0.95 05/27/18 07:15 APTT 32.4 Seconds (25.1-36.5) 05/27/18 07:15 - Constitutional Appears: Well, No Acute Distress - Head Exam Head Exam: ATRAUMATIC, NORMAL INSPECTION, NORMOCEPHALIC - Eye Exam Eye Exam: EOMI, Normal appearance, PERRL - ENT Exam ENT Exam: Mucous Membranes Moist, Normal Exam - Neck Exam Neck Exam: Full ROM, Normal Inspection. absent: Lymphadenopathy - Respiratory Exam Respiratory Exam: Clear to Ausculation Bilateral, NORMAL BREATHING PATTERN. absent: Rales, Rhonchi, Wheezes - Cardiovascular Exam Cardiovascular Exam: Murmur (Severe Mitral regurgitation noted on exam.) - GI/Abdominal Exam GI & Abdominal Exam: Soft, Normal Bowel Sounds. absent: Tenderness - Extremities Exam Extremities Exam: Full ROM, Normal Capillary Refill, Normal Inspection. absent : Joint Swelling, Pedal Edema Additional comments: R-femoral vein was accessed for cardiac cath. Site is clean with no signs of bleed or hematoma. - Back Exam Back Exam: NORMAL INSPECTION - Neurological Exam Neurological Exam: Alert, Awake, Oriented x3 Neuro motor strength exam: Left Upper Extremity: 5, Right Upper Extremity: 5, Left Lower Extremity: 5, Right Lower Extremity: 5 - Skin Skin Exam: Dry, Intact, Normal Color, Warm Assessment and Plan - Assessment and Plan (Free Text) Assessment: Patient is a 57 y/o Female with PMHx of colitis, endometriosis , and depression who presented to the ED on 05/26 for headache, nausea, dizziness , and diarrhea x2 weeks in duration with worsening symptoms. Physical exam indicated mitral regurgitation murmur. Patient was worked up further and found to have severe MR on echo. Patient underwent cardiac cath. Patient admitted to telemetry for monitoring. 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 Moderate pulmonary HTN. Mod-severe Mitral Regurgitation. - Patient will need surgical intervention (mitral valve repair) at [facility] in [facility]. - Cardio consulted; recs appreciated. - Echo (05/27): severe MR. Mild-mod TR. Consistent with rheumatic mitral valve. Mod-thickened mitral valve. EF 67%. - EKG (05/26): NSR. - Chest CT (05/26): no acute findings related to clinical presentation. - Abd/Pelvis CT (05/26): no acute findings related to clinical presentation. - CXR (05/26): mild peribronchial thickening. No evidence of PNA. - troponins negative x3 Headaches with associated dizziness - Continue to monitor - Given morphine prn for pain control - Neuro recs appreciated. - ESR negative - CRP negative - Low suspicion for temporal arterities due to negative ESR and CRP - head CT shows no intracranial pathology - HIV negative Abdominal Pain Possibly 2/2 Gastroenteritis vs. Malignancy - CEA and C19-9 elevated; suspicious for malignancy - Heme/onc consulted, f/u recs. - GI consulted. Recs appreciated. - Hx of diarrhea for 2 weeks and weight loss (12 pounds over 2 weeks) - CEA and C19-9 elevated; suspicious for malignancy - stool leukocytes negative - CT Abd/Pelvis (05/26): no obvious lesions or abnormalities. However, no IV contrast used so difficult to assess pancreas. Recommend better image of pancreas when CARMELA resolves. - Prior colonoscopy is 2014 was normal CARMELA 2/2 GI Loss vs. Decreased PO Intake/Acute Gastroenteritis - BUN/Cr is 20/1.4 today - Hx of 2 week diarrhea; conservative management - Nephro recs appreciated. - Hx of prior embolism in the kidney; consider cardio eval for paroxysmal Afib - UA negative Hx of Depression/Anxiety - c/w home meds PPx/Diet: - protonix for GI, scds for dvt - regular diet Dispo: Patient is being monitored on telemetry s/p cardiac cath. Pending transfer to [facility] for mitral valve repair. Case was discussed and reviewed with Attending Physician, Dr. Ordaz. <Heidi Ordaz - Last Filed: 05/29/18 19:05> Objective - Vital Signs/Intake and Output Vital Signs (last 24 hours): Temp Pulse Resp BP Pulse Ox 98.1 F 80 21 126/78 100 05/29/18 18:00 05/29/18 18:00 05/29/18 18:00 05/29/18 18:00 05/29/18 05:40 - Medications Medications: Current Medications Acetaminophen (Tylenol 325mg Tab) 650 mg PO Q6H PRN PRN Reason: Headache Last Admin: 05/27/18 04:17 Dose: 650 mg Albuterol/Ipratropium (Duoneb 3 Mg/0.5 Mg (3 Ml) Ud) 3 ml IH Q2H PRN PRN Reason: Shortness of Breath Alprazolam (Xanax) 0.5 mg PO BID PRN; Protocol PRN Reason: Anxiety Last Admin: 05/28/18 12:24 Dose: 0.5 mg Furosemide (Lasix) 40 mg PO DAILY [facility] Last Admin: 05/29/18 11:30 Dose: 40 mg Home Med (Home Med) 1 unit PO DAILY [facility] Last Admin: 05/29/18 09:08 Dose: Not Given Morphine Sulfate (Morphine) 1 mg IVP Q4H PRN PRN Reason: Pain, moderate (4-7) Last Admin: 05/29/18 13:55 Dose: 1 mg Ondansetron HCl (Zofran Inj) 4 mg IVP Q4H PRN PRN Reason: Nausea/Vomiting Last Admin: 05/29/18 09:07 Dose: 4 mg Pantoprazole Sodium (Protonix Ec Tab) 40 mg PO 0600 [facility] Last Admin: 05/29/18 05:00 Dose: 40 mg Trazodone HCl (Desyrel) 100 mg PO HS [facility] Last Admin: 05/28/18 23:14 Dose: 100 mg Venlafaxine HCl (Effexor Xr) 150 mg PO DAILY [facility] Last Admin: 05/29/18 09:07 Dose: 150 mg - Labs Labs: 05/29/18 07:00 05/29/18 06:30 PT 13.0 SECONDS (9.4-12.5) H 05/29/18 06:30 INR 1.13 05/29/18 06:30 APTT 31.9 Seconds (25.1-36.5) 05/29/18 06:30 Attending/Attestation - Attestation I have personally seen and examined this patient.: Yes I have fully participated in the care of the patient.: Yes I have reviewed all pertinent clinical information, including history, physical exam and plan: Yes Notes (Text): Patient seen and examined by me at 1PM with resident 05/28/18. Case including HPI , physical exam, and assessment and plan discussed with resident. Agree with above with following additions/corrections. Patient is a 57-year-old female past medical history significant for colitis, endometriosis, anxiety and depression that presented to the emergency room with headache, nausea, and dizziness. Patient states that she is feeling pretty good. Patient states she is feeling the same as when she came in to the hospital. Still with left-sided throbbing, constant headache. No radiation of the pain. No change in vision. Patient also with chest pain that is reproducible. Pain is across entire chest. Patient rates the pain as a 9 out of 10. Pain medications are helping. Patient also with associated shortness of breath. She denies any abdominal pain. No more diarrhea. Patient does still have some nausea. No vomiting. No fevers or chills. Physical exam: General: Awake and alert lying in bed in no acute distress HEENT: Normocephalic atraumatic. Pupils equal reactive. No scleral icterus. Oropharynx is pink and moist. No pharyngeal erythema or exudate appreciated. Neck is supple. Cardiovascular: Normal rhythm. Normal S1, S2. Positive murmur. No rubs or gallops appreciated Pulmonary: Normal respiratory effort. No rhonchi, rales or wheezing appreciated. Gastrointestinal: Soft, nondistended. Nontender. Positive bowel sounds all 4 quadrants, no guarding. Musculoskeletal: Normal range of motion all extremities, no calf tenderness, no edema appreciated. Anterior chest wall tenderness with palpation. Central nervous system: AAOx3. CN2-12 grossly intact. 5/5 muscle strength all extremities. Dermatologic: Skin warm and dry Assessment and plan: Patient is a 57-year-old female past medical history significant for colitis, endometriosis, anxiety and depression that presented to the emergency room with headache, nausea, and dizziness. 1. Chest pain. Shortness of breath. Severe mitral regurgitation. Elevated BNP. Troponins within normal limits. Chest CT per radiologist shows no acute findings related to clinical presentation. Patient is s/p cardiac catheterization. Cardiac cath per internal salesperson shows no significant blockages of disease in the coronary arteries, moderate pulmonary hypertension, moderate to severe mitral regurgitation. Cardiology following, recommendations appreciated. Patient will need mitral valve repair. 2-D echo per internal salesperson shows normal left ventricle size, mild concentric left ventricular hypertrophy, left atrial function normal, EF 65%, mitral valve moderately thickened with decreased opening, morphology consistent with rheumatic mitral valve, doming of mitral leaflets, moderate mitral valve stenosis, mitral regurg severe (please see official read for full details). 2. Headaches. Dizziness. Neurology consulted, recommendations appreciated. Continue morphine. Head CT per radiologist shows no intracranial process. ESR and CRP within normal limits. Low suspicion for temporal arteritis. Continue to monitor. Follow-up with neurology for further recommendations. 3. Abdominal pain. Diarrhea. All cultures negative. Differential pending. Diarrhea seems to have resolved per patient. CT abdomen and pelvis per radiologist shows no acute findings related to/accounting for presentation. GI following, recommendations appreciated. Patient will benefit from EGD after cardiac optimization, may need to be done outpatient. ELevated CA 19-9 and CEA. Nothing seen on imaging. Oncology consulted, follow up recommendations. 4. CARMELA. Creatinine stable. Nephrology following. Continue to monitor. 5. Depression and anxiety. Patient vey anxious. Continue Xanax. Continue Effexor and Trazodone. 6. GI/DVT prophylaxis. Protonix and SCDs with ambulation. Case discussed in detail with patient regarding current diagnosis and treatment plan.
--- NOTE | 2018-05-28 12:55 | CARDCATH ---
PROCEDURE DATE: 05/28/2018 HISTORY: The patient is a 57-year-old woman who presents with 2 weeks of progressive shortness of breath. The patient is free of past medical history. No history of COPD. No previous cardiac history. Her exercise tolerance prior to this admission was excellent. Echocardiogram reveals 4+ mitral regurgitation and pulmonary hypertension. The patient was brought for cardiac catheterization as a preliminary testing prior to possible mitral valve surgery. PROCEDURE: Right and left heart catheterization with coronary arteriography, left ventriculogram and supra-aortic valvular injection. The right femoral vein was cannulated with a 7-[place] sheath. The right femoral artery was cannulated with 6-[place] sheath. There were no complications. I performed moderate sedation which included the presence of an independent trained observer that assisted in monitoring the patient's level of consciousness and physiologic status. After administration of Versed and fentanyl, my intra service time was 30 minutes. The findings on catheterization included hemodynamic data which revealed a right atrial mean pressure of 13 mmHg, RV pressure was 60/12 mmHg, pulmonary artery pressures were 65/32 with a mean of 49 mmHg, simultaneous LV and pulmonary capillary wedge pressure revealed a significant gradient across the mitral valve. Left ventriculogram was visualized in the GUTIERREZ projection. In the GUTIERREZ projection, wall motion is within normal limits with an estimated ejection fraction of 65-70%. There was 3+ mitral regurgitation noted. Her supra-aortic valvular injection revealed no aortic insufficiency. Her coronary anatomy revealed a left dominant circulation. The RCA was free of significant disease. The left main artery was unremarkable. The LAD and diagonal vessels were free of significant disease. The circumflex artery was unremarkable. Manual compression was used to close the femoral artery site. The patient tolerated the procedure well. In summary, the procedure revealed moderate pulmonary hypertension with a mean pulmonary artery pressure of 49 mmHg. [id number] mitral regurgitation. Normal LV function. Normal coronary arteries. Given these findings, the patient will need surgical intervention into her mitral valve. Mitral valve repair would be appropriate. I have contacted [facility] in [facility]. Her case has been referred there for evaluation for mitral valve repair. Matthew Mckeon MD
[2018-05-28] MEDS: Sodium Chloride 0.9% 1,000 ML IV SCH ×2 (15:00→23:14)
[2018-05-28] MEDS ORDERED: Peg-Electrolyte Oral Soln 4L (Golytely) PO ONE (15:34)
[2018-05-29] MEDS: Morphine 2 mg/ml ISec IVP PRN ×4 (04:54→21:34)
[2018-05-29] MEDS: Pantoprazole 40 mg EC Tab PO SCH (05:00)
[2018-05-29] MEDS ORDERED: Peg-Electrolyte Oral Soln 4L (Golytely) PO ONE (06:00)
--- NOTE | 2018-05-29 06:21 | CP.PCM.PN ---
<KlauschristinaalbinoZach - Last Filed: 05/29/18 13:02> Subjective - Date & Time of Evaluation Date of Evaluation: 05/29/18 Time of Evaluation: 06:21 - Subjective Subjective: GI Fellow PGY4 No more diarrhea. No abdominal pain. Has some nausea. She has been told she needs mitral valve surgery. Objective - Vital Signs/Intake and Output Vital Signs (last 24 hours): Temp Pulse Resp BP Pulse Ox 98.8 F 90 20 125/74 100 05/29/18 05:40 05/29/18 05:40 05/29/18 05:40 05/29/18 05:40 05/29/18 05:40 Intake and Output: 05/28/18 05/29/18 18:59 06:59 Intake Total 600 1530 Output Total 2300 Balance -1700 1530 - Medications Medications: Current Medications Acetaminophen (Tylenol 325mg Tab) 650 mg PO Q6H PRN PRN Reason: Headache Last Admin: 05/27/18 04:17 Dose: 650 mg Albuterol/Ipratropium (Duoneb 3 Mg/0.5 Mg (3 Ml) Ud) 3 ml IH Q2H PRN PRN Reason: Shortness of Breath Alprazolam (Xanax) 0.5 mg PO BID PRN; Protocol PRN Reason: Anxiety Last Admin: 05/28/18 12:24 Dose: 0.5 mg Home Med (Home Med) 1 unit PO DAILY [facility] Last Admin: 05/28/18 12:29 Dose: Not Given Morphine Sulfate (Morphine) 1 mg IVP Q4H PRN PRN Reason: Pain, moderate (4-7) Last Admin: 05/29/18 04:54 Dose: 1 mg Ondansetron HCl (Zofran Inj) 4 mg IVP Q4H PRN PRN Reason: Nausea/Vomiting Last Admin: 05/29/18 04:55 Dose: 4 mg Pantoprazole Sodium (Protonix Ec Tab) 40 mg PO 0600 [facility] Last Admin: 05/29/18 05:00 Dose: 40 mg Trazodone HCl (Desyrel) 100 mg PO HS [facility] Last Admin: 05/28/18 23:14 Dose: 100 mg Venlafaxine HCl (Effexor Xr) 150 mg PO DAILY [facility] Last Admin: 05/28/18 12:24 Dose: 150 mg - Labs Labs: PT 10.9 SECONDS (9.4-12.5) 05/27/18 07:15 INR 0.95 05/27/18 07:15 APTT 32.4 Seconds (25.1-36.5) 05/27/18 07:15 - Constitutional Appears: Non-toxic, No Acute Distress - Head Exam Head Exam: NORMAL INSPECTION - Eye Exam Eye Exam: Normal appearance - ENT Exam ENT Exam: Mucous Membranes Moist - Respiratory Exam Respiratory Exam: Clear to Ausculation Bilateral, NORMAL BREATHING PATTERN - Cardiovascular Exam Cardiovascular Exam: REGULAR RHYTHM - GI/Abdominal Exam GI & Abdominal Exam: Soft, Normal Bowel Sounds. absent: Tenderness - Extremities Exam Extremities Exam: Normal Inspection - Neurological Exam Neurological Exam: Alert, Awake, Oriented x3 - Psychiatric Exam Psychiatric exam: Normal Affect, Normal Mood - Skin Skin Exam: Dry, Normal Color Assessment and Plan - Assessment and Plan (Free Text) Assessment: #Abdominal pain - improving #Acute diarrhea - improving #wt. loss #Chest pain - cardiac cath 05/28/18 #Valvular heart disease, severe MR - Cardio recs MVR #CARMELA #Headache - There is concern for GCA #Pulm HTN - RVSP 66 PLAN: -CT abd/pelv with oral contrast reviewed, no obvious lesions or obvious abnormalities, However no IV contrast so difficult to assess pancreas. -CEA and CA 19-9 elevated. Colonoscopy 2014 normal path. -Stool leukocytes neg. Negative Ova/parasites. stool culture neg. -If pain, symptoms continue. Recommend better imaging of pancreas when CARMELA resolves and well after cath (contrast). Pancreas CT protocol vs MRCP/MRI. -No planned procedures at this time due to recent cardiac findings, pulm HTN. Symptoms resolving. -C.diff pending <Magda,Kovil V - Last Filed: 05/29/18 23:50> Objective - Vital Signs/Intake and Output Vital Signs (last 24 hours): Temp Pulse Resp BP Pulse Ox 98.1 F 82 21 126/78 100 05/29/18 18:00 05/29/18 18:00 05/29/18 18:00 05/29/18 18:00 05/29/18 05:40 - Medications Medications: Current Medications Acetaminophen (Tylenol 325mg Tab) 650 mg PO Q6H PRN PRN Reason: Headache Last Admin: 05/27/18 04:17 Dose: 650 mg Albuterol/Ipratropium (Duoneb 3 Mg/0.5 Mg (3 Ml) Ud) 3 ml IH Q2H PRN PRN Reason: Shortness of Breath Alprazolam (Xanax) 0.5 mg PO BID PRN; Protocol PRN Reason: Anxiety Last Admin: 05/28/18 12:24 Dose: 0.5 mg Furosemide (Lasix) 40 mg PO DAILY [facility] Last Admin: 05/29/18 11:30 Dose: 40 mg Home Med (Home Med) 1 unit PO DAILY [facility] Last Admin: 05/29/18 09:08 Dose: Not Given Morphine Sulfate (Morphine) 1 mg IVP Q4H PRN PRN Reason: Pain, moderate (4-7) Last Admin: 05/29/18 21:34 Dose: 1 mg Ondansetron HCl (Zofran Inj) 4 mg IVP Q4H PRN PRN Reason: Nausea/Vomiting Last Admin: 05/29/18 21:39 Dose: 4 mg Pantoprazole Sodium (Protonix Ec Tab) 40 mg PO 0600 [facility] Last Admin: 05/29/18 05:00 Dose: 40 mg Trazodone HCl (Desyrel) 100 mg PO HS [facility] Last Admin: 05/29/18 21:40 Dose: 100 mg Venlafaxine HCl (Effexor Xr) 150 mg PO DAILY [facility] Last Admin: 05/29/18 09:07 Dose: 150 mg - Labs Labs: 05/29/18 07:00 05/29/18 06:30 PT 13.0 SECONDS (9.4-12.5) H 05/29/18 06:30 INR 1.13 05/29/18 06:30 APTT 31.9 Seconds (25.1-36.5) 05/29/18 06:30 Attending/Attestation - Attestation I have personally seen and examined this patient.: Yes I have fully participated in the care of the patient.: Yes I have reviewed all pertinent clinical information, including history, physical exam and plan: Yes Notes (Text): This is an addendum to GI progress report dictated by the GI Fellow.The patient was seen and examined earlier. Medical records, lab studies, imagings were reviewed. Last 24 hours events reviewed. Agreed with the above treatment plan as outlined in GI Fellow 's notes with the addition of the following This patient has a cardiac cath that shows significant MR Patient being considered for valve surgery Patient's diarrhea has improved Patient does have mild elevated CEA 5.2 CA 19-9 44.7 mild elevation Would avoid endoscopy as it involves higher risk in view of MR Would consider MRI without contrast with MRCP and to evaluate pancreas Will discuss with dr Ordaz 05/29/18 23:44
[2018-05-29 07:17] LABS: MEAN CELL VOLUME 87.4 fl (80.0-105.0); MEAN CORPUSCULAR HEMOGLOBIN 29.5 pg (25.0-35.0); MEAN CORPUSCULAR HGB CONC 33.7 g/dl (31.0-37.0); MEAN PLATELET VOLUME 10.3 fl (7.0-11.0); RBC 3.73 10^6/uL (3.5-6.1); RED CELL DISTRIBUTION WIDTH 12.7 % (11.5-14.5); WHITE BLOOD COUNT 7.2 10^3/ul (4.5-11.0)
[2018-05-29 07:24] LABS: INR 1.13; PARTIAL THROMBOPLASTIN TIME 31.9 Seconds (25.1-36.5)
[2018-05-29 07:38] LABS: ALB/GLOB RATIO 1.5 (1.1-1.8); ALBUMIN 3.1 g/dL (3.0-4.8); CALCIUM 8.8 mg/dL (8.4-10.5)
[2018-05-29] MEDS: Venlafaxine 75 mg ER Cap PO SCH (09:07)
[2018-05-29] MEDS: ALPRAZOLAM 0.5 MG PO SCH (09:08)
--- NOTE | 2018-05-29 11:22 | PN ---
DATE: 05/29/2018 SUBJECTIVE: The patient is without complaints. He is suffering from a small hematoma in the right groin with ecchymosis. PHYSICAL EXAMINATION: VITAL SIGNS: The blood pressure is 125/74, the heart rates in the 90s, normal sinus rhythm. NECK: Negative JVD. LUNGS: Without rales. HEART: Reveals S1 and S2 with a 3/6 systolic ejection murmur at the apex. EXTREMITIES: Without edema. The right groin site ecchymosis and small hematoma is noted. LABORATORY DATA: Hemoglobin is 11. Chemistries, BUN and creatinine unremarkable. IMPRESSION: 1. Status post congestive heart failure. 2. Severe mitral regurgitation. 3. Pulmonary hypertension. 4. Anemia. 5. Ecchymosis in right groin postprocedure. PLAN: Given these findings, we will obtain an ultrasound today to rule out pseudoaneurysm of the right groin. I have made arrangements for the patient to be sent to [place] for evaluation for mitral valve repair. Matthew Mckeon MD
[2018-05-29] MEDS ORDERED: Magnesium Sulfate 1 gm in D5W 1 GM/100 ML BAG IVPB ONE (14:18)
--- NOTE | 2018-05-29 14:48 | CP.PCM.PN ---
Subjective - Date & Time of Evaluation Date of Evaluation: 05/29/18 Time of Evaluation: 14:46 - Subjective Subjective: Nephrology Consultation Note: Assessment: Stable Acute Kidney Injury (N17.9) likely due to GI fluid loss and decreased oral intake ? underlying CKD 3 acute gastroenterittis Anemia left renal changed on imaging ? due to prior infection versus embolic infarction severe Mitral Regurg with pulmonary hypertension Plan No acute need for renal replacement therapy at this time. Maintain hemodynamics stable. Avoid hypotension. Patient not on ACEI/ARB due to recent CARMELA and low BP Monitor Input/Output, daily weights and renal function with basic metabolic panel Anemia work up as per primary team cardiology following Dose meds/antibiotics for improved GFR. Avoid fleets enema/magnesium based laxatives. Avoid nephrotoxins/NSAIDs/ iodinated contrast (unless needed emergently) Glycemic control Further work up/management as per primary team Thanks for allowing me to participate in care of your patient. Will follow patient with you. Please call if any Qs. had d/w team Dr Desmond Yanes Office: [phone] Chief Complaint; nausea/loose stool Reason for consult: Acute Kidney Injury HPI: Pt is a 57 F without known hx of DM or HTN presented with complaints of decreased appetite, nausea/vomiting and loose stool for last 2 weeks with 15 weight loss due to it. she fee;s better now. BM soft. no further vomitting Denies OTC/herbal meds or NSAIDs No recent iodinated contrast exposure. No obvious episodes of low BP. pt says she had kidney infection as a teen otherwise not aware about kidney disease in past ROS: feels same. has headache Cardiovascular: No chest pain. Pulmonary: No shortness of breath now but gets at times Gastrointestinal: denies abdominal pain c/o nausea. No vomiting. no loose stool today Genitourinary: No pain while urinating. Denies blood in urine. All other negative except as mentioned in HPI Physical Examination: General Appearance: Comfortable, in no acute respiratory distress, co-operative . Vitals reviewed and noted as below Head; Atraumatic, normocephalic ENT: no ulcers no thrush. Tongue is midline. Oropharynx: no rash or ulcers. EYES: Pupils are equal, round and reactive to light accommodation. Eye muscles and extraocular movement intact. Sclera is anicteric. Neck; supple no lymphadenopathy, no thyromegaly or bruit Lungs: Normal respiratory rate/effort. Breath sounds bilateral equal and clear Heart: Normal rate. s1s2 normal. No rub or gallop. apical SM + Extremities: no edema. No varicose veins Neurological: Patient is alert, awake and oriented to person, place and time. No focal deficit. Strength bilateral appropriate and equal Skin: Warm and dry. Normal turgor. No rash. Palpitation: Normal elasticity for age Abdomen: Abdomen is soft. Bowel sounds +. There is no abdominal tenderness, no guarding/rigidity no organomegaly Psych: normal insight and normal affect/mood MSK: no joint tenderness or swelling. Digits and nails normal, no deformity : kidney or bladder not palpable Labs/imaging reviewed. Past medical history, past surgical history, family history, social history, allergy reviewed and noted as below Family hx: no hx of CKD. Rest non-contributory imaging; left renal parenchymal calcification and ? embolic infarction changes UA no protein or blood Objective - Vital Signs/Intake and Output Vital Signs (last 24 hours): Temp Pulse Resp BP Pulse Ox 97.1 F L 86 21 118/69 100 05/29/18 11:56 05/29/18 11:56 05/29/18 11:56 05/29/18 11:56 05/29/18 05:40 Intake and Output: 05/29/18 05/29/18 06:59 18:59 Intake Total 1530 Balance 1530 - Medications Medications: Current Medications Acetaminophen (Tylenol 325mg Tab) 650 mg PO Q6H PRN PRN Reason: Headache Last Admin: 05/27/18 04:17 Dose: 650 mg Albuterol/Ipratropium (Duoneb 3 Mg/0.5 Mg (3 Ml) Ud) 3 ml IH Q2H PRN PRN Reason: Shortness of Breath Alprazolam (Xanax) 0.5 mg PO BID PRN; Protocol PRN Reason: Anxiety Last Admin: 05/28/18 12:24 Dose: 0.5 mg Furosemide (Lasix) 40 mg PO DAILY [facility] Last Admin: 05/29/18 11:30 Dose: 40 mg Home Med (Home Med) 1 unit PO DAILY [facility] Last Admin: 05/29/18 09:08 Dose: Not Given Magnesium Sulfate/Dextrose (Magnesium Sulfate 1 Gm/100 Ml D5w) 1 gm in 100 mls @ 100 mls/hr IVPB ONCE ONE Stop: 05/29/18 15:17 Morphine Sulfate (Morphine) 1 mg IVP Q4H PRN PRN Reason: Pain, moderate (4-7) Last Admin: 05/29/18 13:55 Dose: 1 mg Ondansetron HCl (Zofran Inj) 4 mg IVP Q4H PRN PRN Reason: Nausea/Vomiting Last Admin: 05/29/18 09:07 Dose: 4 mg Pantoprazole Sodium (Protonix Ec Tab) 40 mg PO 0600 [facility] Last Admin: 05/29/18 05:00 Dose: 40 mg Trazodone HCl (Desyrel) 100 mg PO HS [facility] Last Admin: 05/28/18 23:14 Dose: 100 mg Venlafaxine HCl (Effexor Xr) 150 mg PO DAILY [facility] Last Admin: 05/29/18 09:07 Dose: 150 mg - Labs Labs: 05/29/18 07:00 05/29/18 06:30 PT 13.0 SECONDS (9.4-12.5) H 05/29/18 06:30 INR 1.13 05/29/18 06:30 APTT 31.9 Seconds (25.1-36.5) 05/29/18 06:30
[2018-05-29] MEDS ORDERED: Morphine 2 mg/ml ISec IVP STA (15:49)
--- NOTE | 2018-05-29 17:01 | CP.PCM.CON ---
History of Present Illness - History of Present Illness History of Present Illness: 57 year old female with PMHx of colitis, endometriosis, depression who was admitted for persistent diarrhea and chest pain. Hem/onc consulted for elevated CA 19-9. Patient states that over two weeks ago she began having diarrhea, brown /green, foul smelling >10 episodes/day. States that over that time she had lost 15lbs due to diarrhea and reduced PO intake. Patient is currently complaining of chest pain/discomfort all accross her chest. Patient states that she cannot walk without experiencing shortness of breath. As per patient denies any recent sick contacts, fevers, chills, nausea, vomiting, diarrhea has resolved and she has not moved her bowels in two days. Patient has had a normal colonoscopy in 2014 and had a mammogram last year all were normal as per patient. A 12-point ROS was reviewed and is otherwise unremarkable. PMHx: colitis 2014, endometriosis, kidney issues when a teenage but hasn't had any problems since, 8 herniated discs with chronic back pain, depression, PSHx: fibroids removal with DELANEY-BSO 2004 FHx: granfather with pancreatic cancer, aunt with metastatic breast cancer diagnosed in early 60s and soon after dx Meds: trazodone, alprazolam xr, venlafaxine, vitamin d, multivitamins Allx: NKDA Social Hx: smokes 1-2 cigs per day, 20 pack year history, quit etoh 26 years ago , denies illicit drugs use for over 20 years (no history of IV drug use) Preventative: Colonoscopy in 2015 which was normal as per pt. mammogram last year which was normal as per pt. Review of Systems - Constitutional Constitutional: As Per HPI - EENT Eyes: As Per HPI Ears: As Per HPI Nose/Mouth/Throat: As Per HPI - Breasts Breasts: As Per HPI - Cardiovascular Cardiovascular: As Per HPI - Respiratory Respiratory: As Per HPI - Gastrointestinal Gastrointestinal: As Per HPI - Genitourinary Genitourinary: As Per HPI - Reproductive: Female Reproductive:Female: As Per HPI - Musculoskeletal Musculoskeletal: As Per HPI - Integumentary Integumentary: As Per HPI - Neurological Neurological: As Per HPI - Psychiatric Psychiatric: As Per HPI - Endocrine Endocrine: As Per HPI - Hematologic/Lymphatic Hematologic: As Per HPI Past Patient History - Infectious Disease Hx of Infectious Diseases: None - Tetanus Immunizations Tetanus Immunization: Unknown - Past Social History Smoking Status: Light Smoker < 10 Cigarettes Daily Chewing Tobacco Use: No Cigar Use: No Alcohol: Social Drugs: Denies Home Situation {Lives}: With Family Domestic Violence: Negative - CARDIAC Hx Cardiac Disorders: Yes - PULMONARY Hx Respiratory Disorders: No - NEUROLOGICAL Hx Neurological Disorder: No - HEENT Hx HEENT Problems: No - RENAL Hx Chronic Kidney Disease: No - ENDOCRINE/METABOLIC Hx Endocrine Disorders: No - HEMATOLOGICAL/ONCOLOGICAL Hx Blood Disorders: No - INTEGUMENTARY Hx Dermatological Problems: No - MUSCULOSKELETAL/RHEUMATOLOGICAL Hx Falls: No - GASTROINTESTINAL Hx Gastrointestinal Disorders: No - GENITOURINARY/GYNECOLOGICAL Hx Genitourinary Disorders: No - PSYCHIATRIC Hx Psychophysiologic Disorder: No Hx Substance Use: No - SURGICAL HISTORY Hx Hysterectomy: Yes - ANESTHESIA Hx Anesthesia Reactions: No Hx Malignant Hyperthermia: No Meds Allergies/Adverse Reactions: Allergies Allergy/AdvReac Type Severity Reaction Status Date / Time No Known Allergies Allergy Verified 05/26/18 17:35 - Medications Medications: Current Medications Acetaminophen (Tylenol 325mg Tab) 650 mg PO Q6H PRN PRN Reason: Headache Last Admin: 05/27/18 04:17 Dose: 650 mg Albuterol/Ipratropium (Duoneb 3 Mg/0.5 Mg (3 Ml) Ud) 3 ml IH Q2H PRN PRN Reason: Shortness of Breath Alprazolam (Xanax) 0.5 mg PO BID PRN; Protocol PRN Reason: Anxiety Last Admin: 05/28/18 12:24 Dose: 0.5 mg Furosemide (Lasix) 40 mg PO DAILY [facility] Last Admin: 05/29/18 11:30 Dose: 40 mg Home Med (Home Med) 1 unit PO DAILY [facility] Last Admin: 05/29/18 09:08 Dose: Not Given Morphine Sulfate (Morphine) 1 mg IVP Q4H PRN PRN Reason: Pain, moderate (4-7) Last Admin: 05/29/18 13:55 Dose: 1 mg Ondansetron HCl (Zofran Inj) 4 mg IVP Q4H PRN PRN Reason: Nausea/Vomiting Last Admin: 05/29/18 09:07 Dose: 4 mg Pantoprazole Sodium (Protonix Ec Tab) 40 mg PO 0600 [facility] Last Admin: 05/29/18 05:00 Dose: 40 mg Trazodone HCl (Desyrel) 100 mg PO HS [facility] Last Admin: 05/28/18 23:14 Dose: 100 mg Venlafaxine HCl (Effexor Xr) 150 mg PO DAILY [facility] Last Admin: 05/29/18 09:07 Dose: 150 mg Physical Exam - Constitutional Appears: Well, Non-toxic - Head Exam Head Exam: ATRAUMATIC, NORMAL INSPECTION, NORMOCEPHALIC - Eye Exam Eye Exam: EOMI, Normal appearance, PERRL Pupil Exam: NORMAL ACCOMODATION, PERRL - ENT Exam ENT Exam: Mucous Membranes Moist, Normal Exam - Neck Exam Neck exam: Positive for: Full Rom, Normal Inspection. Negative for: Lymphadenopathy - Respiratory Exam Respiratory Exam: Clear to Auscultation Bilateral, NORMAL BREATHING PATTERN. absent: Chest Wall Tenderness, Decreased Breath Sounds - Cardiovascular Exam Cardiovascular Exam: REGULAR RHYTHM, +S1, +S2, Systolic Murmur - GI/Abdominal Exam GI & Abdominal Exam: Normal Bowel Sounds, Soft - Extremities Exam Extremities exam: Positive for: full ROM, normal inspection - Back Exam Back exam: NORMAL INSPECTION - Neurological Exam Neurological exam: Alert, CN II-XII Intact, Oriented x3 - Skin Skin Exam: Normal Color, Warm Results - Vital Signs Recent Vital Signs: Last Vital Signs Temp 97.1 F L 05/29/18 11:56 Pulse 86 05/29/18 11:56 Resp 21 05/29/18 11:56 BP 118/69 05/29/18 11:56 Pulse Ox 100 05/29/18 05:40 - Labs Result Diagrams: 05/29/18 07:00 05/29/18 06:30 Labs: Laboratory Results - last 24 hr 05/29/18 05/29/18 05/29/18 06:30 06:30 07:00 WBC 7.2 RBC 3.73 Hgb 11.0 L Hct 32.6 L MCV 87.4 MCH 29.5 MCHC 33.7 RDW 12.7 Plt Count 230 MPV 10.3 PT 13.0 H INR 1.13 APTT 31.9 Sodium 142 Potassium 4.2 Chloride 108 H Carbon Dioxide 29 Anion Gap 9 L BUN 15 Creatinine 1.2 Est GFR ( Amer) 56 Est GFR (Non-Af Amer) 47 Random Glucose 87 Calcium 8.8 Total Bilirubin 0.4 AST 22 ALT 40 Alkaline Phosphatase 51 Troponin I Total Protein 5.2 L Albumin 3.1 Globulin 2.0 Albumin/Globulin Ratio 1.5 05/29/18 16:14 WBC RBC Hgb Hct MCV MCH MCHC RDW Plt Count MPV PT INR APTT Sodium Potassium Chloride Carbon Dioxide Anion Gap BUN Creatinine Est GFR ( Amer) Est GFR (Non-Af Amer) Random Glucose Calcium Total Bilirubin AST ALT Alkaline Phosphatase Troponin I 0.04 D Total Protein Albumin Globulin Albumin/Globulin Ratio Assessment & Plan (1) Elevated CA 19-9 level Status: Acute Priority: Low (2) Abdominal pain in female patient Status: Acute - Assessment and Plan (Free Text) Assessment: In summary, this is a 57 year old female with new onset CHF with severe mitral regurgitation with 2 weeks of persistent diarrhea and weight loss. Patient was found to have elevated mildly CA 19-9 levels of 43. Imaging studies were performed although they were without contrast did not reveal any signs of disease. Currently patient is being worked up for her new onset CHF and the need for valve replacement. Borderline normocytic anemia likely from acute issues at this time Elevated Ca 19-9 Imaging studies did not reveal any disease May be elevated in many benign conditions which is likely the cause in this case Would monitor and repeat levels when patients acute condition improves/treated Monitor H/H Cardiology follow up Thank you for allowing me to partake in your patients care. Sincerely, Prashant Rizvi
--- NOTE | 2018-05-29 17:30 | CARD ---
APPROVED REPORT Date of service: 05/29/2018 EKG Measurement Heart [id number] <Conclusion> Normal sinus rhythm Possible Left atrial enlargement Borderline ECG
--- NOTE | 2018-05-29 17:32 | US ---
PROCEDURE: Right common femoral artery arterial duplex ultrasound HISTORY: Evaluate for pseudoaneurysm. PHYSICIAN(S): Matthew Monroe MD. TECHNIQUE: FINDINGS: The right common femoral artery is patent. There is no sonographic evidence of pseudoaneurysm, AV fistula or significant venous thrombosis. IMPRESSION: No sonographic evidence of right common femoral artery pseudoaneurysm.
--- NOTE | 2018-05-29 19:33 | CP.PCM.PN ---
<Danis Ballard - Last Filed: 05/29/18 19:30> Subjective - Date & Time of Evaluation Date of Evaluation: 05/29/18 Time of Evaluation: 07:00 - Subjective Subjective: Danis Ballard PGY1 Medicine Progress Note for Dr. Ordaz Patient was seen and examined at bedside this morning. Patient still c/o headaches, mild abdominal pain, and chest wall tenderness. Denies shortness of breath, dizziness, n/v/d, and lower ext pain. No overnight changes. Vital signs are stable. A full 12 point ROS was conducted and unremarkable except as stated above. Objective - Vital Signs/Intake and Output Vital Signs (last 24 hours): Temp Pulse Resp BP Pulse Ox 98.1 F 80 21 126/78 100 05/29/18 18:00 05/29/18 18:00 05/29/18 18:00 05/29/18 18:00 05/29/18 05:40 - Medications Medications: Current Medications Acetaminophen (Tylenol 325mg Tab) 650 mg PO Q6H PRN PRN Reason: Headache Last Admin: 05/27/18 04:17 Dose: 650 mg Albuterol/Ipratropium (Duoneb 3 Mg/0.5 Mg (3 Ml) Ud) 3 ml IH Q2H PRN PRN Reason: Shortness of Breath Alprazolam (Xanax) 0.5 mg PO BID PRN; Protocol PRN Reason: Anxiety Last Admin: 05/28/18 12:24 Dose: 0.5 mg Furosemide (Lasix) 40 mg PO DAILY [facility] Last Admin: 05/29/18 11:30 Dose: 40 mg Home Med (Home Med) 1 unit PO DAILY [facility] Last Admin: 05/29/18 09:08 Dose: Not Given Morphine Sulfate (Morphine) 1 mg IVP Q4H PRN PRN Reason: Pain, moderate (4-7) Last Admin: 05/29/18 13:55 Dose: 1 mg Ondansetron HCl (Zofran Inj) 4 mg IVP Q4H PRN PRN Reason: Nausea/Vomiting Last Admin: 05/29/18 09:07 Dose: 4 mg Pantoprazole Sodium (Protonix Ec Tab) 40 mg PO 0600 [facility] Last Admin: 05/29/18 05:00 Dose: 40 mg Trazodone HCl (Desyrel) 100 mg PO HS [facility] Last Admin: 05/28/18 23:14 Dose: 100 mg Venlafaxine HCl (Effexor Xr) 150 mg PO DAILY [facility] Last Admin: 05/29/18 09:07 Dose: 150 mg - Labs Labs: 05/29/18 07:00 05/29/18 06:30 PT 13.0 SECONDS (9.4-12.5) H 05/29/18 06:30 INR 1.13 05/29/18 06:30 APTT 31.9 Seconds (25.1-36.5) 05/29/18 06:30 - Head Exam Head Exam: ATRAUMATIC, NORMAL INSPECTION, NORMOCEPHALIC - Eye Exam Eye Exam: EOMI, Normal appearance, PERRL - ENT Exam ENT Exam: Mucous Membranes Moist, Normal Exam - Neck Exam Neck Exam: Full ROM, Normal Inspection. absent: Lymphadenopathy - Respiratory Exam Respiratory Exam: Clear to Ausculation Bilateral, NORMAL BREATHING PATTERN. absent: Rales, Rhonchi, Wheezes - Cardiovascular Exam Cardiovascular Exam: +S1, +S2, Murmur (Mitral regurg murmur) Additional comments: Chest wall tenderness with palpation - GI/Abdominal Exam GI & Abdominal Exam: Soft, Normal Bowel Sounds. absent: Tenderness - Exam Additional comments: Groin at site of cath inspected: it has some fullness/swelling noted - Extremities Exam Extremities Exam: Full ROM, Normal Capillary Refill, Normal Inspection. absent : Joint Swelling, Pedal Edema - Neurological Exam Neurological Exam: Alert, Awake, CN II-XII Intact, Oriented x3 Neuro motor strength exam: Left Upper Extremity: 5, Right Upper Extremity: 5, Left Lower Extremity: 5, Right Lower Extremity: 5 - Psychiatric Exam Psychiatric exam: Anxious - Skin Skin Exam: Dry, Intact, Normal Color, Warm Assessment and Plan - Assessment and Plan (Free Text) Assessment: Patient is a 57 y/o Female with PMHx of colitis, endometriosis , and depression who presented to the ED on 05/26 for headache, nausea, dizziness , and diarrhea x2 weeks in duration with worsening symptoms. Physical exam indicated mitral regurgitation murmur. Patient was worked up further and found to have severe MR on echo. Patient underwent cardiac cath. Patient admitted to telemetry for monitoring. Plan: Severe Mitral Regurgitation - rheumatic mitral valve - s/p cardiac cath with fullness at cath site in groin - r/o pseudoaneurysm with sonogram - Cardiac Cath (05/28): no significant blockages or disease in the coronary arteries. Moderate pulmonary HTN. Mod-severe Mitral Regurgitation. - Patient will need surgical intervention (mitral valve repair) at [facility] in [facility]. - Cardio consulted; recs appreciated. - Echo (05/27): severe MR. Mild-mod TR. Consistent with rheumatic mitral valve. Mod-thickened mitral valve. EF 67%. - EKG (05/26): NSR. - Chest CT (05/26): no acute findings related to clinical presentation. - Abd/Pelvis CT (05/26): no acute findings related to clinical presentation. - CXR (05/26): mild peribronchial thickening. No evidence of PNA. Tension Headaches - As per neurology, patient may need imitrex (sumatriptin) if morphine does not help with pain - Neuro recs appreciated. - ESR and CRP negative - Low suspicion for temporal arterities due to negative ESR and CRP - head CT shows no intracranial pathology Episode of Ventricular Tachycardia - 12 lead EKG did not show further V-Tach - Patient was symptomatic but it was reproducible chest pain likely related to musculoskeletal/anxiety - Continue to monitor on tele Abdominal Pain Possibly 2/2 Gastroenteritis vs. Malignancy - CEA and C19-9 elevated; suspicious for malignancy - Heme/onc consulted, f/u recs. - GI consulted. Recs appreciated. No EGD since there is no cardiac clearance yet. Patient needs mitral valve repair. - Hx of diarrhea for 2 weeks and weight loss (12 pounds over 2 weeks). No diarrhea on admission. - CEA and C19-9 elevated; suspicious for malignancy - stool leukocytes negative - CT Abd/Pelvis (05/26): no obvious lesions or abnormalities. However, no IV contrast used so difficult to assess pancreas. Recommend better image of pancreas when CARMELA resolves. - Prior colonoscopy is 2014 was normal Hx of Depression/Anxiety - Psych consulted - c/w home meds CARMELA 2/2 GI Loss vs. Decreased PO Intake/Acute Gastroenteritis - improved - BUN/Cr is 15/1.2 - Hx of 2 week diarrhea; conservative management - Nephro recs appreciated. - Hx of prior embolism in the kidney; consider cardio eval for paroxysmal Afib - UA negative PPx/Diet: - protonix for GI, scds for dvt - regular diet Dispo: Patient is being monitored on telemetry s/p cardiac cath. Pending transfer to [place] for mitral valve repair. Case was discussed and reviewed with Attending Physician, Dr. Ordaz. <Heidi Ordaz R - Last Filed: 05/30/18 17:05> Objective - Vital Signs/Intake and Output Vital Signs (last 24 hours): Temp Pulse Resp BP Pulse Ox 98.4 F 82 18 128/89 100 05/30/18 12:00 05/30/18 12:00 05/30/18 12:00 05/30/18 12:00 05/30/18 06:00 Intake and Output: 05/30/18 05/30/18 06:59 18:59 Intake Total 240 Balance 240 - Medications Medications: Current Medications Acetaminophen (Tylenol 325mg Tab) 650 mg PO Q6H PRN PRN Reason: Headache Last Admin: 05/27/18 04:17 Dose: 650 mg Furosemide (Lasix) 40 mg PO DAILY [facility] Last Admin: 05/30/18 10:31 Dose: 40 mg Home Med (Home Med) 1 unit PO DAILY [facility] Last Admin: 05/30/18 10:46 Dose: Not Given Lisinopril (Zestril) 5 mg PO DAILY [facility] Last Admin: 05/30/18 11:33 Dose: 5 mg Ondansetron HCl (Zofran Inj) 8 mg IVP Q8H PRN PRN Reason: Nausea/Vomiting Sucralfate (Carafate Oral Susp) 1 gm PO QID [facility] Trazodone HCl (Desyrel) 200 mg PO HS [facility] Venlafaxine HCl (Effexor Xr) 150 mg PO DAILY [facility] Last Admin: 05/30/18 10:31 Dose: 150 mg - Labs Labs: 05/30/18 07:00 05/30/18 07:00 PT 13.0 SECONDS (9.4-12.5) H 05/29/18 06:30 INR 1.13 05/29/18 06:30 APTT 31.9 Seconds (25.1-36.5) 05/29/18 06:30 Attending/Attestation - Attestation I have personally seen and examined this patient.: Yes I have fully participated in the care of the patient.: Yes I have reviewed all pertinent clinical information, including history, physical exam and plan: Yes Notes (Text): Patient seen and examined by me at 10:15AM with resident 05/29/18. Case including HPI, physical exam, and assessment and plan discussed with resident. Agree with above with following additions/corrections. Patient is a 57-year-old female past medical history significant for colitis, endometriosis, anxiety and depression that presented to the emergency room with headache, nausea, and dizziness. Patient states that she is feeling ok. Still with episodes of chest pain across chest and associated shortness of breath. Also still with left sided headache. No change in vision. Light does not bother her. She denies any abdominal pain. States she has been unable to have a bowel movement. Patient still with nausea. No vomiting. No fevers or chills. Physical exam: General: Awake and alert lying in bed in no acute distress HEENT: Normocephalic atraumatic. Pupils equal reactive. No scleral icterus. Oropharynx is pink and moist. No pharyngeal erythema or exudate appreciated. Neck is supple. Cardiovascular: Normal rhythm. Normal S1, S2. Positive mitral murmur. No rubs or gallops appreciated Pulmonary: Normal respiratory effort. No rhonchi, rales or wheezing appreciated. Gastrointestinal: Soft, nondistended. Nontender. Positive bowel sounds all 4 quadrants, no guarding. Musculoskeletal: Normal range of motion all extremities, no calf tenderness, no edema appreciated. Anterior chest wall tenderness with palpation. Central nervous system: AAOx3. CN2-12 grossly intact. 5/5 muscle strength all extremities. Dermatologic: Skin warm and dry Assessment and plan: Patient is a 57-year-old female past medical history significant for colitis, endometriosis, anxiety and depression that presented to the emergency room with headache, nausea, and dizziness. 1. Chest pain. Shortness of breath. Severe mitral regurgitation. Elevated BNP. Troponins within normal limits. Chest pain reproducible. Patient is s/p cardiac catheterization. Cardiac cath per log clerk shows no significant blockages of disease in the coronary arteries, moderate pulmonary hypertension, moderate to severe mitral regurgitation. Cardiology following, recommendations appreciated. Patient will need mitral valve repair. Continue Lasix. Chest CT per radiologist shows no acute findings related to clinical presentation. 2-D echo per log clerk shows normal left ventricle size, mild concentric left ventricular hypertrophy, left atrial function normal, EF 65%, mitral valve moderately thickened with decreased opening, morphology consistent with rheumatic mitral valve, doming of mitral leaflets, moderate mitral valve stenosis, mitral regurg severe (please see official read for full details). 2. Headaches. Dizziness. Neurology following, recommendations appreciated. Continue morphine as needed. Head CT per radiologist shows no intracranial process. ESR and CRP within normal limits. Low suspicion for temporal arteritis. Continue to monitor. 3. Abdominal pain. Diarrhea. All cultures negative. Diarrhea resolved. CT abdomen and pelvis per radiologist shows no acute findings related to/ accounting for presentation. GI following, recommendations appreciated. Patient will benefit from EGD after cardiac optimization, may need to be done outpatient. Elevated CA 19-9 and CEA. Nothing seen on imaging. Oncology consulted, follow up recommendations. 4. CARMELA. Creatinine stable. Nephrology following. Continue to monitor. 5. Depression and anxiety. Patient very anxious. Continue Xanax. Continue Effexor and Trazodone. We'll consult psychiatry, follow-up recommendations 6. GI/DVT prophylaxis. Protonix and SCDs with ambulation. Case discussed in detail with patient regarding current diagnosis and treatment plan.
[2018-05-30] MEDS: Pantoprazole 40 mg EC Tab PO SCH (05:05)
[2018-05-30 07:49] LABS: HEMOGLOBIN 11.4 g/dL (12.0-16.0); MEAN CELL VOLUME 88.1 fl (80.0-105.0); MEAN CORPUSCULAR HEMOGLOBIN 29.4 pg (25.0-35.0); MEAN CORPUSCULAR HGB CONC 33.3 g/dl (31.0-37.0); MEAN PLATELET VOLUME 10.5 fl (7.0-11.0); RBC 3.88 10^6/uL (3.5-6.1); RED CELL DISTRIBUTION WIDTH 12.6 % (11.5-14.5); WHITE BLOOD COUNT 6.1 10^3/ul (4.5-11.0)
[2018-05-30 08:08] LABS: ALB/GLOB RATIO 1.5 (1.1-1.8); ALBUMIN 3.6 g/dL (3.0-4.8); CALCIUM 8.7 mg/dL (8.4-10.5)
[2018-05-30] MEDS: Morphine 2 mg/ml ISec IVP PRN (08:31)
[2018-05-30] MEDS ORDERED: Magnesium Sulfate 2 gm/50 ml 2 GM/50 ML BAG IVPB ONE (09:00)
[2018-05-30] MEDS ORDERED: Sodium Chloride 0.9% 1,000 ML IV SCH (09:15)
[2018-05-30] MEDS ORDERED: POLYETHYLENE GLYCOL 3350 17 GM/Dose PACKET PO ONE (09:47)
[2018-05-30] MEDS: Venlafaxine 75 mg ER Cap PO SCH (10:31)
[2018-05-30] MEDS: ALPRAZOLAM 0.5 MG PO SCH (10:46)
--- NOTE | 2018-05-30 11:35 | PN ---
DATE: 05/30/2018 CARDIOLOGY FOLLOWUP SUBJECTIVE: The patient is still intermittently nauseous. No shortness of breath. No more shortness of breath. PHYSICAL EXAMINATION: VITAL SIGNS: Blood pressure is 132/66, the heart rate is in the 90s. NECK: Negative JVD. LUNGS: Without rales. HEART: Reveals S1, S2 with a III/ systolic ejection murmur. EXTREMITIES: Without edema. LABORATORY DATA: Hemoglobin is 11.4. BUN and creatinine are unremarkable. Ultrasound reveals no pseudoaneurysm. IMPRESSION: 1. Congestive heart failure, which is better. 2. Subacute mitral regurgitation, which is severe. 3. History of hypertension. 4. Nausea. PLAN: Given these findings, the patient's breathing is markedly improved. We will start the patient on daily Lasix as well as low-dose lisinopril. We will discontinue her bronchodilators, which may contributed to her nausea. From a cardiac perspective, the patient can be discharged. We will arrange for evaluation with Cardiac Surgery, which can be done electively. Matthew Mckeon MD
[2018-05-30] MEDS ORDERED: Promethazine 6.25 MG/5 ML CUP PO ONE (11:50)
--- NOTE | 2018-05-30 12:53 | CP.PCM.PN ---
<Marcel Miller - Last Filed: 05/30/18 13:00> Subjective - Date & Time of Evaluation Date of Evaluation: 05/30/18 Time of Evaluation: 09:00 - Subjective Subjective: Marcel Miller PGY2 Medicine Progress Note for Dr. Heidi Ordaz Patient was seen and examined at bedside this morning. Patient complained of constipation, headache, and chest wall tenderness. She denies shortness of breath, dizziness, n/v/d, and lower ext pain. No overnight changes. Vital signs are stable. Objective - Vital Signs/Intake and Output Vital Signs (last 24 hours): Temp Pulse Resp BP Pulse Ox 98 F 77 18 132/66 100 05/30/18 06:00 05/30/18 11:33 05/30/18 06:00 05/30/18 10:31 05/30/18 06:00 Intake and Output: 05/30/18 05/30/18 06:59 18:59 Intake Total 240 Balance 240 - Medications Medications: Current Medications Acetaminophen (Tylenol 325mg Tab) 650 mg PO Q6H PRN PRN Reason: Headache Last Admin: 05/27/18 04:17 Dose: 650 mg Furosemide (Lasix) 40 mg PO DAILY [facility] Last Admin: 05/30/18 10:31 Dose: 40 mg Home Med (Home Med) 1 unit PO DAILY [facility] Last Admin: 05/30/18 10:46 Dose: Not Given Lisinopril (Zestril) 5 mg PO DAILY [facility] Last Admin: 05/30/18 11:33 Dose: 5 mg Trazodone HCl (Desyrel) 200 mg PO [facility] Venlafaxine HCl (Effexor Xr) 150 mg PO DAILY [facility] Last Admin: 05/30/18 10:31 Dose: 150 mg - Labs Labs: 05/30/18 07:00 05/30/18 07:00 PT 13.0 SECONDS (9.4-12.5) H 05/29/18 06:30 INR 1.13 05/29/18 06:30 APTT 31.9 Seconds (25.1-36.5) 05/29/18 06:30 - Constitutional Appears: Well, Non-toxic - Head Exam Head Exam: ATRAUMATIC, NORMOCEPHALIC - Eye Exam Eye Exam: EOMI, Normal appearance - ENT Exam ENT Exam: Mucous Membranes Moist - Neck Exam Neck Exam: Normal Inspection - Respiratory Exam Respiratory Exam: Clear to Ausculation Bilateral, NORMAL BREATHING PATTERN. absent: Accessory Muscle Use - Cardiovascular Exam Additional comments: murmur of mitral regurgitation - GI/Abdominal Exam GI & Abdominal Exam: Soft, Normal Bowel Sounds - Extremities Exam Extremities Exam: Normal Inspection - Back Exam Back Exam: absent: CVA tenderness (L), CVA tenderness (R) - Neurological Exam Neurological Exam: Alert, Awake, Oriented x3 - Psychiatric Exam Psychiatric exam: Normal Affect, Normal Mood - Skin Skin Exam: Dry, Intact, Normal Color, Warm Assessment and Plan - Assessment and Plan (Free Text) Assessment: 57 y/o Female with PMHx of colitis, endometriosis, and depression who presented to the ED on 05/26 for headache, nausea, dizziness, and diarrhea x2 weeks in duration with worsening symptoms. Physical exam indicated mitral regurgitation murmur. Patient was worked up further and found to have severe MR on echo. Patient underwent cardiac cath that showed no significant ischemic disease. Also, GI was consulted given the patient's weight loss. Neurology was consulted for headache and recommended trial of Imitrex. Psychiatry was also consulted for the patient's underlying anxiety/depression, made no changes to the patient's current psychotropics. 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 Moderate pulmonary HTN. Mod-severe Mitral Regurgitation. - Patient will need surgical intervention (mitral valve repair) at [facility] in [facility]. - Cardio consulted; recs appreciated. - Echo (05/27): severe MR. Mild-mod TR. Consistent with rheumatic mitral valve. Mod-thickened mitral valve. EF 67%. - EKG (05/26): NSR. - Chest CT (05/26): no acute findings related to clinical presentation. - Abd/Pelvis CT (05/26): no acute findings related to clinical presentation. - CXR (05/26): mild peribronchial thickening. No evidence of PNA. Headaches - As per neurology, patient may need imitrex (sumatriptin) if morphine does not help with pain - Neuro recs appreciated. - ESR and CRP negative - Low suspicion for temporal arterities due to negative ESR and CRP - head CT shows no intracranial pathology - Patient given one dose of Sumatriptan as trial therapy for possible migraine Episode of Ventricular Tachycardia - 12 lead EKG did not show further V-Tach - Patient did not have some symptom of reproducible chest pain likely secondary to musculoskeletal/anxiety etiology - Continue to monitor on telemetry Abdominal Pain, unspecified in the setting of weight loss/ early satiety - CEA and C19-9 elevated, however non-specific - Heme/onc consulted for elevated CEA and Ca19-9 and recommends, if clinical suspicoin remains high, a repeat of the CEA and CA 19-9 in the non-acute setting - GI ordered MRCP, will follow up - GI consulted. Recs appreciated. No EGD since there is no cardiac clearance yet. Patient needs mitral valve repair. - Hx of diarrhea for 2 weeks and weight loss (12 pounds over 2 weeks). No diarrhea on admission. - stool leukocytes negative - CT Abd/Pelvis (05/26): no obvious lesions or abnormalities. However, no IV contrast used so difficult to assess pancreas. Recommend better image of pancreas when CARMELA resolves. - Prior colonoscopy is 2014 was normal - GIven Miralax for constipation and one dose of Phenergan for nausea Hx of Depression/Anxiety - Psych consulted, - c/w home meds CARMELA 2/2 GI Loss vs. Decreased PO Intake/Acute Gastroenteritis - improved - BUN/Cr is 15/1.2 - Hx of 2 week diarrhea; conservative management - Nephro recs appreciated. - Hx of prior embolism in the kidney; consider cardio eval for paroxysmal Afib - UA negative PPx/Diet: - protonix for GI, scds for dvt - Altered GI/Hepatic diet Dispo: Patient is being monitored on telemetry s/p cardiac cath. Patient stable for outpatient surgery for MV at to [place]. Case was discussed and reviewed with Attending Physician, Dr. Ordaz. <Heidi Ordaz - Last Filed: 05/30/18 17:20> Objective - Vital Signs/Intake and Output Vital Signs (last 24 hours): Temp Pulse Resp BP Pulse Ox 98.4 F 82 18 128/89 100 05/30/18 12:00 05/30/18 12:00 05/30/18 12:00 05/30/18 12:00 05/30/18 06:00 Intake and Output: 05/30/18 05/30/18 06:59 18:59 Intake Total 240 Balance 240 - Medications Medications: Current Medications Acetaminophen (Tylenol 325mg Tab) 650 mg PO Q6H PRN PRN Reason: Headache Last Admin: 05/27/18 04:17 Dose: 650 mg Alprazolam (Xanax) 0.5 mg PO TID PRN; Protocol PRN Reason: Anxiety Furosemide (Lasix) 40 mg PO DAILY [facility] Last Admin: 05/30/18 10:31 Dose: 40 mg Home Med (Home Med) 1 unit PO DAILY [facility] Last Admin: 05/30/18 10:46 Dose: Not Given Lisinopril (Zestril) 5 mg PO DAILY [facility] Last Admin: 05/30/18 11:33 Dose: 5 mg Ondansetron HCl (Zofran Inj) 8 mg IVP Q8H PRN PRN Reason: Nausea/Vomiting Pantoprazole Sodium (Protonix Ec Tab) 40 mg PO 0600 [facility] Sucralfate (Carafate Oral Susp) 1 gm PO QID [facility] Trazodone HCl (Desyrel) 200 mg PO HS [facility] Venlafaxine HCl (Effexor Xr) 150 mg PO DAILY [facility] Last Admin: 05/30/18 10:31 Dose: 150 mg - Labs Labs: 05/30/18 07:00 05/30/18 07:00 PT 13.0 SECONDS (9.4-12.5) H 05/29/18 06:30 INR 1.13 05/29/18 06:30 APTT 31.9 Seconds (25.1-36.5) 05/29/18 06:30 Attending/Attestation - Attestation I have personally seen and examined this patient.: Yes I have fully participated in the care of the patient.: Yes I have reviewed all pertinent clinical information, including history, physical exam and plan: Yes Notes (Text): Patient seen and examined by me at 09:30AM with resident. Case including HPI, physical exam, and assessment and plan discussed with resident. Agree with above with following additions/corrections. Patient is a 57-year-old female past medical history significant for colitis, endometriosis, anxiety and depression that presented to the emergency room with headache, nausea, and dizziness. Patient states that she is feeling ok. Feels the same. Continue with episodes of chest pain across chest and associated shortness of breath. Pain is reproducible. Continues with left sided headache. She denies any abdominal pain but continues to have nausea. No vomiting. Patient has not had a bowel movement and is asking for medication. No fevers or chills. No dysuria. Physical exam: General: Awake and alert lying in bed in no acute distress HEENT: Normocephalic atraumatic. Pupils equal reactive. No scleral icterus. Oropharynx is pink and moist. No pharyngeal erythema or exudate appreciated. Neck is supple. Cardiovascular: Normal rhythm. Normal S1, S2. Positive mitral murmur. No rubs or gallops appreciated Pulmonary: Normal respiratory effort. No rhonchi, rales or wheezing appreciated. Gastrointestinal: Soft, nondistended. Nontender. Positive bowel sounds all 4 quadrants, no guarding. Musculoskeletal: Normal range of motion all extremities, no calf tenderness, no edema appreciated. Anterior chest wall tenderness with palpation. Central nervous system: AAOx3. CN2-12 grossly intact. 5/5 muscle strength all extremities. Dermatologic: Skin warm and dry Assessment and plan: Patient is a 57-year-old female past medical history significant for colitis, endometriosis, anxiety and depression that presented to the emergency room with headache, nausea, and dizziness. 1. Chest pain. Shortness of breath. Severe mitral regurgitation. Elevated BNP. Troponins within normal limits. Chest pain reproducible. Continue Lasix. Started on Lisinopril. Patient is s/p cardiac catheterization. Cardiac cath per software developer mid level shows no significant blockages of disease in the coronary arteries, moderate pulmonary hypertension, moderate to severe mitral regurgitation. Cardiology following, recommendations appreciated. Patient will need mitral valve repair. Chest CT per radiologist shows no acute findings related to clinical presentation. 2-D echo per software developer mid level shows normal left ventricle size, mild concentric left ventricular hypertrophy, left atrial function normal, EF 65%, mitral valve moderately thickened with decreased opening, morphology consistent with rheumatic mitral valve, doming of mitral leaflets, moderate mitral valve stenosis, mitral regurgitation severe (please see official read for full details). 2. Nonsustained V. tach. She was given magnesium sulfate. Resolved. Cardiology following, recommendations appreciated. Continue to monitor on telemetry 3. Headaches. Dizziness. Neurology following, recommendations appreciated. Continue morphine as needed. Will give dose of Imitrex. Head CT per radiologist shows no intracranial process. ESR and CRP within normal limits. Low suspicion for temporal arteritis. Continue to monitor. 4. Abdominal pain. Diarrhea. All cultures negative. Diarrhea resolved. CT abdomen and pelvis per radiologist shows no acute findings related to/ accounting for presentation. GI following, recommendations appreciated. Patient will benefit from EGD after cardiac optimization, may need to be done outpatient. MRCP ordered by GI, follow up recommendations. Elevated CA 19-9 and CEA. Nothing seen on imaging. Oncology recommendations appreciated. Patient to have repeat levels outpatient after acute illnesses resolved. 5. CARMELA. Creatinine stable. Nephrology following. Continue to monitor. 6. Depression and anxiety. Patient very anxious. Continue Effexor. Psychiatry following, recommendations appreciated. Xanax dose and trazodone dose increased. 7. GI/DVT prophylaxis. Protonix and SCDs with ambulation. Case discussed in detail with patient regarding current diagnosis and treatment plan.
--- NOTE | 2018-05-30 13:15 | CP.PCM.PN ---
Subjective - Date & Time of Evaluation Date of Evaluation: 05/30/18 Time of Evaluation: 13:11 - Subjective Subjective: Nephrology Consultation Note: Assessment: Stable Acute Kidney Injury (N17.9) likely due to GI fluid loss and decreased oral intake ? underlying CKD 3 acute gastroenterittis Anemia left renal changed on imaging ? due to prior infection versus embolic infarction severe Mitral Regurg with pulmonary hypertension Plan No acute need for renal replacement therapy at this time. Renal function fairly stable continue to monitor Maintain hemodynamics stable. was started on nadia -i today - if any further inc in cr would discontinue and hold the lasix as well Monitor Input/Output, daily weights and renal function with basic metabolic panel Anemia work up as per primary team f/u cardio S: complains of constipation Physical Examination: General Appearance: Comfortable, in no acute respiratory distress, co-operative . Vitals reviewed and noted as below Head; Atraumatic, normocephalic ENT: no ulcers no thrush. Tongue is midline. Oropharynx: no rash or ulcers. EYES: Pupils are equal, round and reactive to light accommodation. Eye muscles and extraocular movement intact. Sclera is anicteric. Neck; supple no lymphadenopathy, no thyromegaly or bruit Lungs: Normal respiratory rate/effort. Breath sounds bilateral equal and clear Heart: Normal rate. s1s2 normal. No rub or gallop. Extremities: no edema. No varicose veins Neurological: Patient is alert, awake and oriented to person, place and time. No focal deficit. Strength bilateral appropriate and equal Skin: Warm and dry. Normal turgor. No rash. Palpitation: Normal elasticity for age Abdomen: Abdomen is soft. Bowel sounds +. There is no abdominal tenderness, no guarding/rigidity no organomegaly Psych: normal insight and normal affect/mood MSK: no joint tenderness or swelling. Digits and nails normal, no deformity : kidney or bladder not palpable Labs/imaging reviewed. Past medical history, past surgical history, family history, social history, allergy reviewed and noted as below Family hx: no hx of CKD. Rest non-contributory Objective - Vital Signs/Intake and Output Vital Signs (last 24 hours): Temp Pulse Resp BP Pulse Ox 98 F 77 18 132/66 100 05/30/18 06:00 05/30/18 11:33 05/30/18 06:00 05/30/18 10:31 05/30/18 06:00 Intake and Output: 05/30/18 05/30/18 06:59 18:59 Intake Total 240 Balance 240 - Medications Medications: Current Medications Acetaminophen (Tylenol 325mg Tab) 650 mg PO Q6H PRN PRN Reason: Headache Last Admin: 05/27/18 04:17 Dose: 650 mg Furosemide (Lasix) 40 mg PO DAILY [facility] Last Admin: 05/30/18 10:31 Dose: 40 mg Home Med (Home Med) 1 unit PO DAILY [facility] Last Admin: 05/30/18 10:46 Dose: Not Given Lisinopril (Zestril) 5 mg PO DAILY [facility] Last Admin: 05/30/18 11:33 Dose: 5 mg Trazodone HCl (Desyrel) 200 mg PO [facility] Venlafaxine HCl (Effexor Xr) 150 mg PO DAILY [facility] Last Admin: 05/30/18 10:31 Dose: 150 mg - Labs Labs: 05/30/18 07:00 05/30/18 07:00 PT 13.0 SECONDS (9.4-12.5) H 05/29/18 06:30 INR 1.13 05/29/18 06:30 APTT 31.9 Seconds (25.1-36.5) 05/29/18 06:30
--- NOTE | 2018-05-30 15:40 | CP.PCM.PN ---
<KlauschristinaalbinoZach - Last Filed: 05/30/18 15:37> Subjective - Date & Time of Evaluation Date of Evaluation: 05/30/18 Time of Evaluation: 15:37 - Subjective Subjective: GI Fellow PGY4, Patient complaining of a lot of nausea, vomiting. Cannot tolerate her diet. Objective - Vital Signs/Intake and Output Vital Signs (last 24 hours): Temp Pulse Resp BP Pulse Ox 98.4 F 82 18 128/89 100 05/30/18 12:00 05/30/18 12:00 05/30/18 12:00 05/30/18 12:00 05/30/18 06:00 Intake and Output: 05/30/18 05/30/18 06:59 18:59 Intake Total 240 Balance 240 - Medications Medications: Current Medications Acetaminophen (Tylenol 325mg Tab) 650 mg PO Q6H PRN PRN Reason: Headache Last Admin: 05/27/18 04:17 Dose: 650 mg Furosemide (Lasix) 40 mg PO DAILY [facility] Last Admin: 05/30/18 10:31 Dose: 40 mg Home Med (Home Med) 1 unit PO DAILY [facility] Last Admin: 05/30/18 10:46 Dose: Not Given Lisinopril (Zestril) 5 mg PO DAILY [facility] Last Admin: 05/30/18 11:33 Dose: 5 mg Ondansetron HCl (Zofran Inj) 4 mg IVP Q6H PRN PRN Reason: Nausea/Vomiting Trazodone HCl (Desyrel) 200 mg PO [facility] Venlafaxine HCl (Effexor Xr) 150 mg PO DAILY [facility] Last Admin: 05/30/18 10:31 Dose: 150 mg - Labs Labs: 05/30/18 07:00 05/30/18 07:00 PT 13.0 SECONDS (9.4-12.5) H 05/29/18 06:30 INR 1.13 05/29/18 06:30 APTT 31.9 Seconds (25.1-36.5) 05/29/18 06:30 - Constitutional Appears: Non-toxic, No Acute Distress - Eye Exam Eye Exam: Normal appearance - ENT Exam ENT Exam: Mucous Membranes Moist - Respiratory Exam Respiratory Exam: Clear to Ausculation Bilateral, NORMAL BREATHING PATTERN - Cardiovascular Exam Cardiovascular Exam: REGULAR RHYTHM, +S1, +S2 - GI/Abdominal Exam GI & Abdominal Exam: Soft, Normal Bowel Sounds. absent: Tenderness - Neurological Exam Neurological Exam: Alert, Awake, Oriented x3 - Psychiatric Exam Psychiatric exam: Normal Affect, Normal Mood - Skin Skin Exam: Normal Color Assessment and Plan - Assessment and Plan (Free Text) Assessment: #Intractable N/V #Abdominal pain - improving #Acute diarrhea - improving, Stool leukocytes neg. Negative Ova/parasites. stool culture neg. #wt. loss #Chest pain - cardiac cath 05/28/18 #Valvular heart disease, severe MR - Cardio recs MVR #CARMELA, possible CKD #Headache #Pulm HTN - RVSP 66 PLAN: -CT abd/pelv with oral contrast reviewed, no obvious lesions or obvious abnormalities, However no IV contrast so difficult to assess pancreas. -CEA and CA 19-9 elevated. Colonoscopy 2014 normal path. -MRI/MRCP for elevated tumor markers. -EGD in 2-3 days for intractable N/V. This will have to be cleared with cardiology first. Will follow. -clear liquid diet, advance as tolerated to 6 small meals low fat diet. Increase Zofran IV 8mg TID as needed. -Rheumatologic w/u PENDING <Shan Man V - Last Filed: 05/30/18 21:04> Objective - Vital Signs/Intake and Output Vital Signs (last 24 hours): Temp Pulse Resp BP Pulse Ox 98.5 F 79 18 108/83 97 05/30/18 18:00 05/30/18 18:00 05/30/18 18:00 05/30/18 18:00 05/30/18 18:00 Intake and Output: 05/30/18 05/31/18 18:59 06:59 Intake Total 600 Balance 600 - Medications Medications: Current Medications Acetaminophen (Tylenol 325mg Tab) 650 mg PO Q6H PRN PRN Reason: Headache Last Admin: 05/27/18 04:17 Dose: 650 mg Alprazolam (Xanax) 0.5 mg PO TID PRN; Protocol PRN Reason: Anxiety Furosemide (Lasix) 40 mg PO DAILY [facility] Last Admin: 05/30/18 10:31 Dose: 40 mg Home Med (Home Med) 1 unit PO DAILY [facility] Last Admin: 05/30/18 10:46 Dose: Not Given Lisinopril (Zestril) 5 mg PO DAILY [facility] Last Admin: 05/30/18 11:33 Dose: 5 mg Ondansetron HCl (Zofran Inj) 8 mg IVP Q8H PRN PRN Reason: Nausea/Vomiting Pantoprazole Sodium (Protonix Ec Tab) 40 mg PO 0600 [facility] Sucralfate (Carafate Oral Susp) 1 gm PO QID [facility] Last Admin: 05/30/18 18:17 Dose: 1 gm Trazodone HCl (Desyrel) 200 mg PO HS [facility] Venlafaxine HCl (Effexor Xr) 150 mg PO DAILY [facility] Last Admin: 05/30/18 10:31 Dose: 150 mg - Labs Labs: 05/30/18 07:00 05/30/18 07:00 PT 13.0 SECONDS (9.4-12.5) H 05/29/18 06:30 INR 1.13 05/29/18 06:30 APTT 31.9 Seconds (25.1-36.5) 05/29/18 06:30 Attending/Attestation - Attestation I have personally seen and examined this patient.: Yes I have fully participated in the care of the patient.: Yes I have reviewed all pertinent clinical information, including history, physical exam and plan: Yes Notes (Text): This is an addendum to GI progress report dictated by the GI Fellow.The patient was seen and examined earlier. Medical records, lab studies, imagings were reviewed. Last 24 hours events reviewed. Agreed with the above treatment plan as outlined in GI Fellow 's notes with the addition of the following This patient has episodes of nausea vomiting unable to keep food down On compazine MRI still pending no diarrhea on examination abdomen soft mild tenderness in epigastric area Cardiac surgical eval for severe MR pending If patient GI symptom persists would need EGD We will discuss with medical team and cardiology 05/30/18 21:01
[2018-05-30] MEDS: Sucralfate 1 gm/10 ml Oral Susp UD PO SCH ×2 (18:17→22:57)
[2018-05-31] MEDS: Pantoprazole 40 mg EC Tab PO SCH (06:04)
[2018-05-31] MEDS: Venlafaxine 75 mg ER Cap PO SCH (09:05)
[2018-05-31] MEDS: Sucralfate 1 gm/10 ml Oral Susp UD PO SCH ×4 (09:05→21:05)
[2018-05-31] MEDS: ALPRAZOLAM 0.5 MG PO SCH (09:06)
[2018-05-31] MEDS ORDERED: POLYETHYLENE GLYCOL 3350 17 GM/Dose PACKET PO ONE (09:12)
--- NOTE | 2018-05-31 09:15 | CP.PCM.PN ---
<Marcel Miller - Last Filed: 05/31/18 13:47> Subjective - Date & Time of Evaluation Date of Evaluation: 05/31/18 Time of Evaluation: 09:15 - Subjective Subjective: Marcel Miller DO, PGY-2: Progress Note for Dr. Heidi Ordaz Patient was seen and examined at bedside. Patient was vomiting at the time of examination. She reported some improvement in nausea with Diphenylhydramine. Given the patient's persistent nausea and now vomiting, GI will take her for UED tomorrow. Objective - Vital Signs/Intake and Output Vital Signs (last 24 hours): Temp Pulse Resp BP Pulse Ox 98.6 F 70 20 109/70 96 05/31/18 06:00 05/31/18 09:05 05/31/18 06:00 05/31/18 09:05 05/31/18 06:00 Intake and Output: 05/31/18 05/31/18 06:59 18:59 Intake Total 720 Balance 720 - Medications Medications: Current Medications Acetaminophen (Tylenol 325mg Tab) 650 mg PO Q6H PRN PRN Reason: Headache Last Admin: 05/31/18 09:05 Dose: 650 mg Alprazolam (Xanax) 0.5 mg PO TID PRN; Protocol PRN Reason: Anxiety Last Admin: 05/31/18 09:05 Dose: 0.5 mg Furosemide (Lasix) 40 mg PO DAILY [facility] Last Admin: 05/31/18 09:05 Dose: 40 mg Home Med (Home Med) 1 unit PO DAILY [facility] Last Admin: 05/31/18 09:06 Dose: Not Given Lisinopril (Zestril) 5 mg PO DAILY [facility] Last Admin: 05/31/18 09:05 Dose: 5 mg Ondansetron HCl (Zofran Inj) 8 mg IVP Q8H PRN PRN Reason: Nausea/Vomiting Last Admin: 05/31/18 06:03 Dose: 8 mg Pantoprazole Sodium (Protonix Ec Tab) 40 mg PO 0600 [facility] Last Admin: 05/31/18 06:04 Dose: 40 mg Polyethylene Glycol (Miralax) 17 gm PO ONCE ONE Stop: 05/31/18 09:13 Sucralfate (Carafate Oral Susp) 1 gm PO QID [facility] Last Admin: 05/31/18 09:05 Dose: 1 gm Trazodone HCl (Desyrel) 200 mg PO HS [facility] Last Admin: 05/30/18 22:56 Dose: 200 mg Venlafaxine HCl (Effexor Xr) 150 mg PO DAILY [facility] Last Admin: 05/31/18 09:05 Dose: 150 mg - Labs Labs: 05/30/18 07:00 05/30/18 07:00 PT 13.0 SECONDS (9.4-12.5) H 05/29/18 06:30 INR 1.13 05/29/18 06:30 APTT 31.9 Seconds (25.1-36.5) 05/29/18 06:30 - Constitutional Appears: Non-toxic - Head Exam Head Exam: ATRAUMATIC, NORMOCEPHALIC - Eye Exam Eye Exam: EOMI, Normal appearance - ENT Exam ENT Exam: Mucous Membranes Dry - Neck Exam Neck Exam: Normal Inspection - Respiratory Exam Respiratory Exam: Clear to Ausculation Bilateral, NORMAL BREATHING PATTERN. absent: Accessory Muscle Use - Cardiovascular Exam Cardiovascular Exam: Murmur (MR) - GI/Abdominal Exam GI & Abdominal Exam: Soft, Normal Bowel Sounds. absent: Rebound - Extremities Exam Extremities Exam: Normal Inspection. absent: Calf Tenderness - Neurological Exam Neurological Exam: Alert, Awake, Oriented x3 - Psychiatric Exam Psychiatric exam: Normal Affect, Normal Mood - Skin Skin Exam: Dry, Intact, Normal Color, Warm Assessment and Plan - Assessment and Plan (Free Text) Assessment: 57 y/o Female with PMHx of colitis, endometriosis, and depression who presented to the ED on 05/26 for headache, nausea, dizziness, and diarrhea x2 weeks in duration with worsening symptoms. Physical exam indicated mitral regurgitation murmur. Patient was worked up further and found to have severe MR on echo. Patient underwent cardiac cath that showed no significant ischemic disease. Also, GI was consulted given the patient's weight loss. Neurology was consulted for headache and recommended trial of Imitrex. Psychiatry was also consulted for the patient's underlying anxiety/depression, made no changes to the patient's current psychotropics. MRCP performed, pending interpretation. GI will take patient for upper endoscopy possibly tomorrow for intractable nausea and vomiting. 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 Moderate pulmonary HTN. Mod-severe Mitral Regurgitation. - Patient will need surgical intervention (mitral valve repair) at [facility] in [facility]. - Cardio consulted; recs appreciated. - Echo (05/27): severe MR. Mild-mod TR. Consistent with rheumatic mitral valve. Mod-thickened mitral valve. EF 67%. - EKG (05/26): NSR. - Chest CT (05/26): no acute findings related to clinical presentation. - Abd/Pelvis CT (05/26): no acute findings related to clinical presentation. - CXR (05/26): mild peribronchial thickening. No evidence of PNA. Headaches - As per neurology, patient may need imitrex (sumatriptin) if morphine does not help with pain - Neuro recs appreciated. - ESR and CRP negative - Low suspicion for temporal arterities due to negative ESR and CRP - head CT shows no intracranial pathology - Patient given one dose of Sumatriptan as trial therapy for possible migraine- not effective Episode of Ventricular Tachycardia - 12 lead EKG did not show further V-Tach - Patient did not have some symptom of reproducible chest pain likely secondary to musculoskeletal/anxiety etiology - Continue to monitor on telemetry - Cardiology following Abdominal Pain, unspecified in the setting of weight loss/ early satiety - CEA and C19-9 elevated, however non-specific - Heme/onc consulted for elevated CEA and Ca19-9 and recommends, if clinical suspicoin remains high, a repeat of the CEA and CA 19-9 in the non-acute setting - GI ordered MRCP, will follow up - GI consulted. Recs appreciated. No EGD since there is no cardiac clearance yet. Patient needs mitral valve repair. - Hx of diarrhea for 2 weeks and weight loss (12 pounds over 2 weeks). No diarrhea on admission. - stool leukocytes negative - CT Abd/Pelvis (05/26): no obvious lesions or abnormalities. However, no IV contrast used so difficult to assess pancreas. Recommend better image of pancreas when CARMELA resolves. - Prior colonoscopy is 2014 was normal - GIven Miralax for constipation and one dose of Phenergan for nausea Hx of Depression/Anxiety - Psych consulted, - c/w home meds CARMELA 2/2 GI Loss vs. Decreased PO Intake/Acute Gastroenteritis - improved - BUN/Cr is 15/1.2 - Hx of 2 week diarrhea; conservative management - Nephro recs appreciated. - Hx of prior embolism in the kidney; consider cardio eval for paroxysmal Afib - UA negative PPx/Diet: - protonix for GI, scds for dvt - Altered GI/Hepatic diet - NPO after midnight for possible EGD tomorrow Dispo: Patient is being monitored on telemetry s/p cardiac cath. Patient stable for outpatient surgery for MV at to [place]. Case was discussed and reviewed with Attending Physician, Dr. Ordaz. <Heidi Ordaz R - Last Filed: 05/31/18 15:30> Objective - Vital Signs/Intake and Output Vital Signs (last 24 hours): Temp Pulse Resp BP Pulse Ox 98.4 F 73 18 120/72 96 05/31/18 12:00 05/31/18 12:00 05/31/18 12:00 05/31/18 12:00 05/31/18 06:00 Intake and Output: 05/31/18 05/31/18 06:59 18:59 Intake Total 720 Balance 720 - Medications Medications: Current Medications Acetaminophen (Tylenol 325mg Tab) 650 mg PO Q6H PRN PRN Reason: Headache Last Admin: 05/27/18 04:17 Dose: 650 mg Alprazolam (Xanax) 0.5 mg PO TID PRN; Protocol PRN Reason: Anxiety Last Admin: 05/31/18 09:05 Dose: 0.5 mg Furosemide (Lasix) 40 mg PO DAILY [facility] Last Admin: 05/31/18 09:05 Dose: 40 mg Home Med (Home Med) 1 unit PO DAILY [facility] Last Admin: 05/31/18 09:06 Dose: Not Given Sodium Chloride (Sodium Chloride 0.45%) 1,000 mls @ 180 mls/hr IV .[id number] [facility] Stop: 06/01/18 02:06 Last Admin: 05/31/18 15:26 Dose: 180 mls/hr Lisinopril (Zestril) 5 mg PO DAILY [facility] Last Admin: 05/31/18 09:05 Dose: 5 mg Morphine Sulfate (Morphine) 1 mg IVP Q6H PRN PRN Reason: Pain, severe (8-10) Last Admin: 05/31/18 15:23 Dose: 1 mg Ondansetron HCl (Zofran Inj) 8 mg IVP Q8H PRN PRN Reason: Nausea/Vomiting Last Admin: 05/31/18 06:03 Dose: 8 mg Pantoprazole Sodium (Protonix Ec Tab) 40 mg PO 0600 [facility] Last Admin: 05/31/18 06:04 Dose: 40 mg Sucralfate (Carafate Oral Susp) 1 gm PO QID [facility] Last Admin: 05/31/18 15:23 Dose: 1 gm Trazodone HCl (Desyrel) 200 mg PO HS [facility] Last Admin: 05/30/18 22:56 Dose: 200 mg Venlafaxine HCl (Effexor Xr) 150 mg PO DAILY [facility] Last Admin: 05/31/18 09:05 Dose: 150 mg - Labs Labs: 05/31/18 08:30 05/31/18 08:30 PT 13.0 SECONDS (9.4-12.5) H 05/29/18 06:30 INR 1.13 05/29/18 06:30 APTT 31.9 Seconds (25.1-36.5) 05/29/18 06:30 Attending/Attestation - Attestation I have personally seen and examined this patient.: Yes I have fully participated in the care of the patient.: Yes I have reviewed all pertinent clinical information, including history, physical exam and plan: Yes Notes (Text): Patient seen and examined by me at 09:40AM with resident. Case including HPI, physical exam, and assessment and plan discussed with resident. Agree with above with following additions/corrections. Patient is a 57-year-old female past medical history significant for colitis, endometriosis, anxiety and depression that presented to the emergency room with headache, nausea, and dizziness. Patient states that she is not feeling well. Feeling nauseous this morning. Still with chest pain that is reproducible. Headache improved. Shortness of breath improved. She denies any abdominal pain. Patient states she is vomiting spit. Patient has not had a bowel movement. No fevers or chills. No dysuria. Physical exam: General: Awake and alert lying in bed in no acute distress HEENT: Normocephalic atraumatic. Pupils equal reactive. No scleral icterus. Oropharynx is pink and moist. No pharyngeal erythema or exudate appreciated. Neck is supple. Cardiovascular: Normal rhythm. Normal S1, S2. Positive mitral murmur. No rubs or gallops appreciated Pulmonary: Normal respiratory effort. No rhonchi, rales or wheezing appreciated. Gastrointestinal: Soft, nondistended. Nontender. Positive bowel sounds all 4 quadrants, no guarding. Musculoskeletal: Normal range of motion all extremities, no calf tenderness, no edema appreciated. Anterior chest wall tenderness with palpation. Central nervous system: AAOx3. CN2-12 grossly intact. 5/5 muscle strength all extremities. Dermatologic: Skin warm and dry Assessment and plan: Patient is a 57-year-old female past medical history significant for colitis, endometriosis, anxiety and depression that presented to the emergency room with headache, nausea, and dizziness. 1. Chest pain. Shortness of breath. Severe mitral regurgitation. Elevated BNP. Troponins within normal limits. Chest pain reproducible. Continue Lasix and Lisinopril. S/P cardiac catheterization which per cement crusher operator shows no significant blockages of disease in the coronary arteries, moderate pulmonary hypertension, moderate to severe mitral regurgitation. Cardiology following, recommendations appreciated. Patient will need mitral valve repair. Chest CT per radiologist shows no acute findings related to clinical presentation. 2-D echo per cement crusher operator shows normal left ventricle size, mild concentric left ventricular hypertrophy, left atrial function normal, EF 65%, mitral valve moderately thickened with decreased opening, morphology consistent with rheumatic mitral valve, doming of mitral leaflets, moderate mitral valve stenosis, mitral regurgitation severe (please see official read for full details ). 2. Nonsustained V. Tach. She was given magnesium sulfate. Resolved. Cardiology following, recommendations appreciated. Continue to monitor on telemetry 3. Headaches. Dizziness. Neurology following, recommendations appreciated. Continue morphine as needed. S/P dose of Imitrex. Head CT per radiologist shows no intracranial process. ESR and CRP within normal limits. Low suspicion for temporal arteritis. Continue to monitor. 4. Abdominal pain. Diarrhea. Nausea and vomiting. Diarrhea resolved. CT abdomen and pelvis per radiologist shows no acute findings related to/ accounting for presentation. GI following, recommendations appreciated. Patient will benefit from EGD after cardiac optimization, may need to be done outpatient. MRCP ordered by GI, follow up results. Patient for possible EGD tomorrow. Patient is high risk for EGD secondary to mitral regurgitation and pulmonary hypertension. Patient understands that she is high risk. However, patient with continued nausea and vomiting and requires intervention. Needs cardiology opinion prior to EGD. Elevated CA 19-9 and CEA. Nothing seen on imaging. Oncology recommendations appreciated. Patient to have repeat levels outpatient after acute illnesses resolved. 5. CARMELA. Creatinine stable. Nephrology following. Continue to monitor. 6. Depression and anxiety. Patient very anxious. Continue Effexor. Psychiatry following, recommendations appreciated. Continue Xanax and trazodone. 7. GI/DVT prophylaxis. Protonix and SCDs with ambulation. Case discussed in detail with patient regarding current diagnosis and treatment plan.
[2018-05-31 09:22] LABS: BASO # 0.04 K/mm3 (0.0-2.0); BASO % 0.8 % (0.0-3.0); EOS # 0.1 (0.0-0.7); EOS % 1.2 % (1.5-5.0); GRAN # 2.4 (1.4-6.5); HEMOGLOBIN 11.8 g/dL (12.0-16.0); LYMPH # 2.4 (1.2-3.4); LYMPH % 45.3 % (22.0-35.0); MEAN CELL VOLUME 87.8 fl (80.0-105.0); MEAN CORPUSCULAR HEMOGLOBIN 28.8 pg (25.0-35.0); MEAN CORPUSCULAR HGB CONC 32.8 g/dl (31.0-37.0); MEAN PLATELET VOLUME 10.2 fl (7.0-11.0); MONO # 0.4 (0.1-0.6); MONO % 6.7 % (1.0-6.0); RBC 4.1 10^6/uL (3.5-6.1); RED CELL DISTRIBUTION WIDTH 12.5 % (11.5-14.5); WHITE BLOOD COUNT 5.2 10^3/ul (4.5-11.0)
[2018-05-31 09:28] LABS: ALB/GLOB RATIO 1.5 (1.1-1.8); ALBUMIN 3.8 g/dL (3.0-4.8); CALCIUM 8.9 mg/dL (8.4-10.5)
--- NOTE | 2018-05-31 11:49 | CP.PCM.PN ---
<Zach Peralta - Last Filed: 05/31/18 11:43> Subjective - Date & Time of Evaluation Date of Evaluation: 05/31/18 Time of Evaluation: 11:43 - Subjective Subjective: GI Fellow PGY4, Patient still with N/V. Getting MRCP today. Possible EGD tomorrow afternoon. Objective - Vital Signs/Intake and Output Vital Signs (last 24 hours): Temp Pulse Resp BP Pulse Ox 98.6 F 88 20 109/70 96 05/31/18 06:00 05/31/18 10:00 05/31/18 06:00 05/31/18 09:05 05/31/18 06:00 Intake and Output: 05/31/18 05/31/18 06:59 18:59 Intake Total 720 Balance 720 - Medications Medications: Current Medications Acetaminophen (Tylenol 325mg Tab) 650 mg PO Q6H PRN PRN Reason: Headache Last Admin: 05/27/18 04:17 Dose: 650 mg Alprazolam (Xanax) 0.5 mg PO TID PRN; Protocol PRN Reason: Anxiety Last Admin: 05/31/18 09:05 Dose: 0.5 mg Furosemide (Lasix) 40 mg PO DAILY [facility] Last Admin: 05/31/18 09:05 Dose: 40 mg Home Med (Home Med) 1 unit PO DAILY [facility] Last Admin: 05/31/18 09:06 Dose: Not Given Lisinopril (Zestril) 5 mg PO DAILY [facility] Last Admin: 05/31/18 09:05 Dose: 5 mg Ondansetron HCl (Zofran Inj) 8 mg IVP Q8H PRN PRN Reason: Nausea/Vomiting Last Admin: 05/31/18 06:03 Dose: 8 mg Pantoprazole Sodium (Protonix Ec Tab) 40 mg PO 0600 [facility] Last Admin: 05/31/18 06:04 Dose: 40 mg Sucralfate (Carafate Oral Susp) 1 gm PO QID [facility] Last Admin: 05/31/18 09:05 Dose: 1 gm Trazodone HCl (Desyrel) 200 mg PO HS [facility] Last Admin: 05/30/18 22:56 Dose: 200 mg Venlafaxine HCl (Effexor Xr) 150 mg PO DAILY [facility] Last Admin: 05/31/18 09:05 Dose: 150 mg - Labs Labs: 05/31/18 08:30 05/31/18 08:30 PT 13.0 SECONDS (9.4-12.5) H 05/29/18 06:30 INR 1.13 05/29/18 06:30 APTT 31.9 Seconds (25.1-36.5) 05/29/18 06:30 - Constitutional Appears: No Acute Distress - Head Exam Head Exam: NORMAL INSPECTION - Eye Exam Eye Exam: Normal appearance - Respiratory Exam Respiratory Exam: Clear to Ausculation Bilateral, NORMAL BREATHING PATTERN - Cardiovascular Exam Cardiovascular Exam: REGULAR RHYTHM - GI/Abdominal Exam GI & Abdominal Exam: Soft, Normal Bowel Sounds. absent: Tenderness - Extremities Exam Extremities Exam: Normal Inspection - Psychiatric Exam Psychiatric exam: Normal Affect, Normal Mood - Skin Skin Exam: Normal Color Assessment and Plan - Assessment and Plan (Free Text) Assessment: #Intractable N/V #Abdominal pain - improving #Acute diarrhea - improving, Stool leukocytes neg. Negative Ova/parasites. stool culture neg. #wt. loss #Chest pain - cardiac cath 05/28/18 #Valvular heart disease, severe MR - Cardio recs MVR #CARMELA, possible CKD #Headache #Pulm HTN - RVSP 66 PLAN: -CT abd/pelv with oral contrast reviewed, no obvious lesions or obvious abnormalities, However no IV contrast so difficult to assess pancreas. -CEA and CA 19-9 elevated. Colonoscopy 2014 normal path. -MRI/MRCP for elevated tumor markers. -clear liquid diet -Rheumatologic w/u PENDING -Possible EGD tomorrow. NPO after breakfast. -Must have cardiology opinion/recommendations of patient's ability to tolerate anesthesia in setting of severe valvular disease and pulmonary HTN. <Shan Man V - Last Filed: 05/31/18 21:43> Objective - Vital Signs/Intake and Output Vital Signs (last 24 hours): Temp Pulse Resp BP Pulse Ox 98.4 F 71 18 123/83 96 05/31/18 18:00 05/31/18 18:00 05/31/18 18:00 05/31/18 18:00 05/31/18 06:00 Intake and Output: 05/31/18 06/01/18 18:59 06:59 Intake Total 995 Balance 995 - Medications Medications: Current Medications Acetaminophen (Tylenol 325mg Tab) 650 mg PO Q6H PRN PRN Reason: Headache Last Admin: 05/27/18 04:17 Dose: 650 mg Alprazolam (Xanax) 0.5 mg PO TID PRN; Protocol PRN Reason: Anxiety Last Admin: 05/31/18 21:05 Dose: 0.5 mg Furosemide (Lasix) 40 mg PO DAILY [facility] Last Admin: 05/31/18 09:05 Dose: 40 mg Heparin Sodium (Porcine) (Heparin) 5,000 units SC Q12 TED PRN Reason: Protocol Last Admin: 05/31/18 21:05 Dose: 5,000 units Home Med (Home Med) 1 unit PO DAILY [facility] Last Admin: 05/31/18 09:06 Dose: Not Given Sodium Chloride (Sodium Chloride 0.9%) 1,000 mls @ 75 mls/hr IV .[id number] [facility] Stop: 06/01/18 15:46 Last Admin: 05/31/18 18:18 Dose: 75 mls/hr Lisinopril (Zestril) 5 mg PO DAILY [facility] Last Admin: 05/31/18 09:05 Dose: 5 mg Morphine Sulfate (Morphine) 1 mg IVP Q6H PRN PRN Reason: Pain, severe (8-10) Last Admin: 05/31/18 15:23 Dose: 1 mg Ondansetron HCl (Zofran Inj) 8 mg IVP Q8H PRN PRN Reason: Nausea/Vomiting Last Admin: 05/31/18 06:03 Dose: 8 mg Pantoprazole Sodium (Protonix Ec Tab) 40 mg PO 0600 [facility] Last Admin: 05/31/18 06:04 Dose: 40 mg Sucralfate (Carafate Oral Susp) 1 gm PO QID [facility] Last Admin: 05/31/18 21:05 Dose: 1 gm Trazodone HCl (Desyrel) 200 mg PO HS [facility] Last Admin: 05/31/18 21:05 Dose: 200 mg Venlafaxine HCl (Effexor Xr) 150 mg PO DAILY [facility] Last Admin: 05/31/18 09:05 Dose: 150 mg - Labs Labs: 05/31/18 08:30 05/31/18 08:30 PT 13.0 SECONDS (9.4-12.5) H 05/29/18 06:30 INR 1.13 05/29/18 06:30 APTT 31.9 Seconds (25.1-36.5) 05/29/18 06:30 Attending/Attestation - Attestation I have personally seen and examined this patient.: Yes I have fully participated in the care of the patient.: Yes I have reviewed all pertinent clinical information, including history, physical exam and plan: Yes Notes (Text): This is an addendum to GI progress report dictated by the GI Fellow.The patient was seen and examined earlier. Medical records, lab studies, imagings were reviewed. Last 24 hours events reviewed. Agreed with the above treatment plan as outlined in GI Fellow 's notes with the addition of the following Patient still has episodes of vomiting Cardiac surgical eval for mitral valve surgery pending Mildly elevated CA19-9, history weight loss MRCP done results pending Patient is scheduled for EGD tomorrow PM if cleared by cardiology Follow up MRI/MRCP 05/31/18 21:41
[2018-05-31] MEDS ORDERED: Morphine 5 MG/ML SYRINGE IVP PRN (14:53)
[2018-05-31] MEDS ORDERED: Sodium Chloride 0.45% 1,000 ML IV SCH (15:00)
[2018-05-31] MEDS: Morphine 2 mg/ml ISec IVP PRN (15:23)
[2018-05-31] MEDS: Sodium Chloride 0.9% 1,000 ML IV SCH (18:18)
--- NOTE | 2018-05-31 18:49 | PN ---
DATE: 05/31/[address] Matthew Mckeon. SUBJECTIVE: The patient reports mild chest discomfort. PHYSICAL EXAMINATION: VITAL SIGNS: Blood pressure 120/72, heart rate 73, temperature 98.4, respiration 18. HEENT: Normocephalic. CHEST: Clear. HEART: S1 and S2, regular. EXTREMITIES: No edema. Venous Doppler of lower extremity, no DVT. LABORATORY DATA AND IMAGING: Chest x-ray revealed borderline cardiomegaly with prominent bronchovascular markings. Left heart catheterization revealed normal coronaries and severe mitral insufficiency. Today's hemoglobin and hematocrit 11.8 and 36, white count and platelet count are within normal limit. Today's SMA-7 is within normal limits except for creatinine of 1.3. ASSESSMENT: 1. Tazixhzb-jn-kffixp mitral insufficiency. 2. Improved congestive heart failure. 3. Hypertension. 4. Mitral insufficiency. CONDITIONS: Continue current Lasix 40 mg once a day, Protonix 40 mg once a day, Zestril 5 mg once a day. Start prophylactic subcutaneous heparin and the plan is to arrange for transfer for mitral valve repair. Luke Lopez MD
--- NOTE | 2018-05-31 22:02 | CARD ---
APPROVED REPORT Date of service: 05/31/2018 EKG Measurement Heart [id number] <Conclusion> Normal sinus rhythm Biatrial enlargement Left ventricular hypertrophy Abnormal ECG
[2018-06-01] MEDS: Pantoprazole 40 mg EC Tab PO SCH (05:00)
[2018-06-01] MEDS: Sodium Chloride 0.9% 1,000 ML IV SCH (06:28)
[2018-06-01] MEDS: Morphine 2 mg/ml ISec IVP PRN ×2 (06:32→21:30)
--- NOTE | 2018-06-01 08:48 | CON ---
DATE: 05/30/2018 HISTORY OF PRESENT ILLNESS: The patient is a 57-year-old female with history of depression and anxiety. No psychiatric hospitalization. Currently, in treatment with Dr. Calvillo for multiple years, compliant with her medications of Effexor XR, trazodone, and Xanax who Psychiatry was consulted for symptoms of depression while she is undergoing treatment for her multiple medical issues. Please refer to medical notes for comprehensive list of current medical condition. I reviewed the patient's recent notes and I met with her at bedside and she is calm, cooperative, well oriented to month, year, location, and circumstances. She indicates that she has been anxious in the unit; however, she has is relates to her frustration and stress over her medical event. She is not hopeless. She is very hopeful and appears coherent, well related, mildly anxious, but in good control. The patient is pleasant and cooperative during my questioning and does not appear to be in any behavioral issues in the unit. Currently, she is tolerating her psychiatric medications restarted by her medical team, which include Xanax 0.5 mg p.o. b.i.d. p.r.n., trazodone 100 mg p.o. at bedtime, and Effexor XR 150 mg daily. The patient is not aware of her current psychiatric medication doses and she asked to this provider to call [facility] to double check medical team's dosing. The patient also indicates that she did not sleep very well. Her insight and judgment are considered to be fair. PSYCHIATRIC HISTORY: As mentioned above, the patient is in treatment with Dr. Calvillo for many years, about once monthly. She was prescribed trazodone, Xanax, and Effexor. This provider called [facility] in [place] at [phone] and verified the patient is getting Xanax 0.5 mg p.o. b.i.d., Effexor XR 150 mg daily, and trazodone 200 mg at bedtime. The patient denies any history of suicidal attempts or psychiatric hospitalization. VITAL SIGNS: Reviewed. LABORATORY DATA: Reviewed. RELEVANT PSYCHIATRIC MEDICATIONS: Reviewed in the above HPI. IMPRESSION: Major depressive disorder adjustment disorder with depression and anxiety at this point in time due to the patient's feeling stressed by current medical events. RECOMMENDATIONS: At this time, I will increase trazodone to 200 mg at bedtime as this is the dose that the patient was taking prior to her admission. Xanax will be increased to 0.5 mg t.i.d. p.r.n. as the patient medication when she is under stress; however, take this medication when she did not take her stressors. I will also continue with Effexor XR 150 mg daily. Psychiatry will sign off at this time. There are no acute major psychiatric symptoms. Please reconsult p.r.n. Jose Joaquin MD
[2018-06-01] MEDS: Venlafaxine 75 mg ER Cap PO SCH (09:01)
[2018-06-01] MEDS: Sucralfate 1 gm/10 ml Oral Susp UD PO SCH ×4 (09:01→23:29)
[2018-06-01] MEDS: ALPRAZOLAM 0.5 MG PO SCH (10:00)
--- NOTE | 2018-06-01 10:58 | PN ---
DATE: 06/01/2018 CARDIOLOGY FOLLOWUP SUBJECTIVE: The patient is without shortness of breath. PHYSICAL EXAMINATION: VITAL SIGNS: Blood pressure is 122/74, the heart rate is in the 70s. NECK: Negative JVD. LUNGS: Without rales. HEART: III/ systolic ejection murmur. EXTREMITIES: Without edema. LABORATORY: Hemoglobin is 11.8. Chemistries: BUN and creatinine unremarkable. Potassium is 4. IMPRESSION: 1. Resolution of congestive heart failure. 2. Severe mitral regurgitation. 3. Hypertension. 4. Dyspnea, which is now resolved. PLAN: Given these findings, the patient requests change of her surgery to [facility] given her insurance issues. I have contacted Dr. Oneal at [facility]. Awaiting for transfer to [facility]. Matthew Mckeon MD
--- NOTE | 2018-06-01 11:32 | CON ---
DATE: 06/01/2018 HISTORY OF PRESENT ILLNESS: Shortly, the patient is a 57-year-old female, multiple medical issues. The patient was admitted on the medical site for evaluation of left-sided intermittent sharp, pressure-like headache associated with intermittent dizziness with vertigo. Psych consult was called for evaluation of anxiety and depression and the patient is on psychotropic medications. The patient was seen and examined today. The patient presented with good personal hygiene. The patient seems to be a good and reliable historian. The patient reported that she feels anxious about her medical issues and the patient reported that she is on the medical site since 05/26/2018 and each and every time she feels like a new diagnosis is given to her. The patient especially reported that she is overwhelmed with her high blood pressure. The patient also reported that her symptoms are not very much improving. The patient reports that she was diagnosed with depression as well as anxiety by Dr. Calvillo whom she sees in the community on monthly basis. The patient reported that she is on Xanax as well as on Effexor 150 mg daily and trazodone 200 mg at the nighttime. The patient reported that she is compliant with the medications. Denied any side effects. The patient reports that she does not hear any voices, does not see anything unusual. The patient reported that she has never been admitted to the Psychiatric Inpatient Unit. She also reported that she never tried to kill herself in the past. The patient reported that main stress is related to her job. 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 The patient has future oriented plans. The patient wants to relocate and wants to have part-time job and not to be stressed in her life. The patient denied any substance abuse history. Reported her house situation is stable. The patient lives with her daughter who is in college. She has tenants as well as she takes care of her mother. Vital signs reviewed, seems to be stable. Temperature 98.4, pulse is 71, blood pressure 120/72, respirations 18. Medications reviewed. The patient is on Tylenol, Xanax will be increased in frequency 0.5 mg four times a day as needed. The patient is on Lasix, heparin, Zestril, morphine, Zofran, Protonix, sodium chloride, sucralfate, trazodone 200 mg at the nighttime and Effexor 150 mg daily. Labs reviewed. Hemoglobin and hematocrit 11.8 and 36 respectively. Chemistry reviewed, seems to be within normal limits. Urinalysis is reviewed. Leukocyte esterase trace. FOBT is negative. Immunology and serology reviewed. MENTAL STATUS EXAMINATION: The patient presented to be alert, oriented, pleasant, seems to be a good historian. The patient well related to this curriculum writer. Fair eye contact. Speech was underproductive, low volume, slow. Mood described as, my medical issues gives me a lot of anxiety. Affect constricted. Thought process coherent and goal directed. Thought content, the patient denied visual, auditory or tactile hallucinations. Denied paranoid ideation. The patient denied thoughts of harming herself or others. Denied intents or plan. Insight and judgment seems to be fair. Impulses are well controlled. IMPRESSION: Rule out mood disorder due to general medical condition, rule out anxiety disorder due to general medical condition. The patient reported that she has history of depression and anxiety. No history of being admitted to the Psychiatric Inpatient Unit. No suicidal attempts in the past. PLAN: Continue current management. Continue current medication. Xanax was increased in frequency with a plan to give the same dose after discharge because the patient reported that hospitalization is making her feel very anxious. The patient has followup appointment with her doctor, Dr. Calvillo. The patient pose no imminent danger to self or others. This curriculum writer will sign off. Should you have any questions, give me a call back. Thank you very much for letting me participate in the care of your patient. Tracey Estrella MD
--- NOTE | 2018-06-01 13:25 | MRI ---
Date of service: 05/31/2018 PROCEDURE: MRI Abdomen without contrast MRI Abdomen with and without contrast with MRCP HISTORY: Weight loss, elevated CA 19 -9 COMPARISON: CT scan 05/26/2018 TECHNIQUE: Multisequence, multiplanar MR images of the abdomen without gadolinium contrast enhancement. FINDINGS: LIVER: Unremarkable. GALLBLADDER: Unremarkable. SPLEEN: Unremarkable. ADRENALS: Unremarkable. KIDNEYS: Multiple small hypo intense cystic lesions are seen in the periphery of the left kidney consistent with hemorrhagic cysts. There is also some atrophy of the cortex PANCREAS: Unremarkable. AORTA: No aneurysm. ASCITES: None. PERITONEUM: Unremarkable. LYMPH NODES: Unremarkable. OTHER FINDINGS: None. IMPRESSION: No evidence of pancreatic or hepatic malignancy. Multiple hemorrhagic cysts in the periphery of the left kidney with associated atrophy.
--- NOTE | 2018-06-01 15:07 | CP.PCM.PN ---
Subjective - Date & Time of Evaluation Date of Evaluation: 06/01/18 Time of Evaluation: 15:06 - Subjective Subjective: Nephrology Consultation Note: Assessment: Stable Acute Kidney Injury (N17.9) likely due to GI fluid loss and decreased oral intake Likely underlying CKD 3 acute gastroenterittis Anemia left renal changes on imaging ? due to prior infection versus embolic infarction severe Mitral Regurg with pulmonary hypertension Plan No acute need for renal replacement therapy at this time. Maintain hemodynamics stable. Avoid hypotension. Patient started on low dose lisinopril Monitor Input/Output, daily weights and renal function with basic metabolic panel Anemia work up as per primary team cardiology following being planned for transfer to a tertiary care center for mitral valve repair Dose meds/antibiotics for reduced GFR. Avoid fleets enema/magnesium based laxatives. Avoid nephrotoxins/NSAIDs/ iodinated contrast (unless needed emergently) Glycemic control Further work up/management as per primary team Thanks for allowing me to participate in care of your patient. Will follow patient with you. Please call if any Qs. had d/w team Dr Desmond Yanes Office: [phone] Chief Complaint; nausea/loose stool Reason for consult: Acute Kidney Injury HPI: Pt is a 57 F without known hx of DM or HTN presented with complaints of decreased appetite, nausea/vomiting and loose stool for last 2 weeks with 15 weight loss due to it. she fee;s better now. BM soft. no further vomitting Denies OTC/herbal meds or NSAIDs No recent iodinated contrast exposure. No obvious episodes of low BP. pt says she had kidney infection as a teen otherwise not aware about kidney disease in past ROS: feels same. has headache Cardiovascular: No chest pain. Pulmonary: No shortness of breath now but gets at times Gastrointestinal: denies abdominal pain c/o nausea. No vomiting. no loose stool today Genitourinary: No pain while urinating. Denies blood in urine. All other negative except as mentioned in HPI Physical Examination: General Appearance: Comfortable, in no acute respiratory distress, co-operative . Vitals reviewed and noted as below Head; Atraumatic, normocephalic ENT: no ulcers no thrush. Tongue is midline. Oropharynx: no rash or ulcers. EYES: Pupils are equal, round and reactive to light accommodation. Eye muscles and extraocular movement intact. Sclera is anicteric. Neck; supple no lymphadenopathy, no thyromegaly or bruit Lungs: Normal respiratory rate/effort. Breath sounds bilateral equal and clear Heart: Normal rate. s1s2 normal. No rub or gallop. apical SM + Extremities: no edema. No varicose veins Neurological: Patient is alert, awake and oriented to person, place and time. No focal deficit. Strength bilateral appropriate and equal Skin: Warm and dry. Normal turgor. No rash. Palpitation: Normal elasticity for age Abdomen: Abdomen is soft. Bowel sounds +. There is no abdominal tenderness, no guarding/rigidity no organomegaly Psych: normal insight and normal affect/mood MSK: no joint tenderness or swelling. Digits and nails normal, no deformity : kidney or bladder not palpable Labs/imaging reviewed. Past medical history, past surgical history, family history, social history, allergy reviewed and noted as below Family hx: no hx of CKD. Rest non-contributory imaging; left renal parenchymal calcification and ? embolic infarction changes UA no protein or blood Objective - Vital Signs/Intake and Output Vital Signs (last 24 hours): Temp Pulse Resp BP Pulse Ox 99 F 70 19 109/64 100 06/01/18 12:00 06/01/18 12:00 06/01/18 12:00 06/01/18 12:00 06/01/18 05:59 Intake and Output: 06/01/18 06/01/18 06:59 18:59 Intake Total 900 120 Balance 900 120 - Medications Medications: Current Medications Acetaminophen (Tylenol 325mg Tab) 650 mg PO Q6H PRN PRN Reason: Headache Last Admin: 05/27/18 04:17 Dose: 650 mg Alprazolam (Xanax) 0.5 mg PO QID PRN; Protocol PRN Reason: Anxiety Furosemide (Lasix) 40 mg PO DAILY [facility] Last Admin: 06/01/18 09:02 Dose: 40 mg Heparin Sodium (Porcine) (Heparin) 5,000 units SC Q12 TED PRN Reason: Protocol Last Admin: 06/01/18 09:01 Dose: 5,000 units Home Med (Home Med) 1 unit PO DAILY [facility] Last Admin: 06/01/18 10:00 Dose: Not Given Sodium Chloride (Sodium Chloride 0.9%) 1,000 mls @ 75 mls/hr IV .[id number] [facility] Stop: 06/01/18 15:46 Last Admin: 06/01/18 06:28 Dose: 75 mls/hr Lisinopril (Zestril) 5 mg PO DAILY [facility] Last Admin: 06/01/18 09:04 Dose: 5 mg Morphine Sulfate (Morphine) 1 mg IVP Q6H PRN PRN Reason: Pain, severe (8-10) Last Admin: 06/01/18 06:32 Dose: 1 mg Ondansetron HCl (Zofran Inj) 8 mg IVP Q8H PRN PRN Reason: Nausea/Vomiting Last Admin: 06/01/18 04:46 Dose: 8 mg Pantoprazole Sodium (Protonix Ec Tab) 40 mg PO 0600 [facility] Last Admin: 06/01/18 05:00 Dose: 40 mg Sucralfate (Carafate Oral Susp) 1 gm PO QID [facility] Last Admin: 06/01/18 14:11 Dose: Not Given Trazodone HCl (Desyrel) 200 mg PO HS [facility] Last Admin: 05/31/18 21:05 Dose: 200 mg Venlafaxine HCl (Effexor Xr) 150 mg PO DAILY [facility] Last Admin: 06/01/18 09:01 Dose: 150 mg - Labs Labs: 05/31/18 08:30 05/31/18 08:30 PT 13.0 SECONDS (9.4-12.5) H 05/29/18 06:30 INR 1.13 05/29/18 06:30 APTT 30.3 Seconds (25.1-36.5) 06/01/18 06:30
[2018-06-01] MEDS ORDERED: Midazolam 2 MG/2 ML VIAL ONE (16:08)
[2018-06-01] MEDS ORDERED: Propofol 10 mg/ml Inj (20 ML) ONE (16:08)
[2018-06-01] MEDS ORDERED: Etomidate 20 mg/10ml Inj IV ONE (16:09)
--- NOTE | 2018-06-01 16:23 | CP.PCM.PCO ---
Addendum Addendum: 06/01/18 16:19 I discussed case with Dr. Mckeon about the need for EGD to r/o anatomical disease causing intractable nausea. Dr. Mckeon stated patient's cardiac problem is stable at this point and can proceed with EGD and anesthesia. Cardiology notes reviewed.
--- NOTE | 2018-06-01 16:47 | CP.PCM.PN ---
<Danis Ballard - Last Filed: 06/01/18 16:49> Subjective - Date & Time of Evaluation Date of Evaluation: 06/01/18 Time of Evaluation: 07:00 - Subjective Subjective: Danis Ballard PGY1 Medicine Progress Note for Dr. Marquez Patient seen and examined at bedside this morning. Patient was complaining of increased anxiety. She denied vomiting. Her last episode of vomiting was yesterday. Otherwise, denies chest pain, shortness of breath, headache, numbness /tingling of extremities. No overnight changes. Patient is going for EGD after interview. A full 12 point ROS was conducted and unremarkable except as stated above. Objective - Vital Signs/Intake and Output Vital Signs (last 24 hours): Temp Pulse Resp BP Pulse Ox 99 F 70 19 109/64 100 06/01/18 12:00 06/01/18 12:00 06/01/18 12:00 06/01/18 12:00 06/01/18 05:59 Intake and Output: 06/01/18 06/01/18 06:59 18:59 Intake Total 900 120 Balance 900 120 - Medications Medications: Current Medications Acetaminophen (Tylenol 325mg Tab) 650 mg PO Q6H PRN PRN Reason: Headache Last Admin: 05/27/18 04:17 Dose: 650 mg Alprazolam (Xanax) 0.5 mg PO QID PRN; Protocol PRN Reason: Anxiety Furosemide (Lasix) 40 mg PO DAILY [facility] Last Admin: 06/01/18 09:02 Dose: 40 mg Heparin Sodium (Porcine) (Heparin) 5,000 units SC Q12 TED PRN Reason: Protocol Last Admin: 06/01/18 09:01 Dose: 5,000 units Home Med (Home Med) 1 unit PO DAILY [facility] Last Admin: 06/01/18 10:00 Dose: Not Given Lisinopril (Zestril) 5 mg PO DAILY [facility] Last Admin: 06/01/18 09:04 Dose: 5 mg Morphine Sulfate (Morphine) 1 mg IVP Q6H PRN PRN Reason: Pain, severe (8-10) Last Admin: 06/01/18 06:32 Dose: 1 mg Ondansetron HCl (Zofran Inj) 8 mg IVP Q8H PRN PRN Reason: Nausea/Vomiting Last Admin: 06/01/18 04:46 Dose: 8 mg Pantoprazole Sodium (Protonix Ec Tab) 40 mg PO 0600 [facility] Last Admin: 06/01/18 05:00 Dose: 40 mg Sucralfate (Carafate Oral Susp) 1 gm PO QID [facility] Last Admin: 06/01/18 14:11 Dose: Not Given Trazodone HCl (Desyrel) 200 mg PO HS [facility] Last Admin: 05/31/18 21:05 Dose: 200 mg Venlafaxine HCl (Effexor Xr) 150 mg PO DAILY [facility] Last Admin: 06/01/18 09:01 Dose: 150 mg - Labs Labs: 05/31/18 08:30 05/31/18 08:30 PT 13.0 SECONDS (9.4-12.5) H 05/29/18 06:30 INR 1.13 05/29/18 06:30 APTT 30.3 Seconds (25.1-36.5) 06/01/18 06:30 - Constitutional Appears: Well, No Acute Distress - Head Exam Head Exam: ATRAUMATIC, NORMAL INSPECTION, NORMOCEPHALIC - Eye Exam Eye Exam: EOMI, Normal appearance, PERRL - ENT Exam ENT Exam: Mucous Membranes Moist, Normal Exam - Neck Exam Neck Exam: Full ROM, Normal Inspection. absent: Lymphadenopathy - Respiratory Exam Respiratory Exam: Clear to Ausculation Bilateral, NORMAL BREATHING PATTERN. absent: Rales, Rhonchi, Wheezes - Cardiovascular Exam Cardiovascular Exam: RRR, Murmur (Mitral regurgitation ) - GI/Abdominal Exam GI & Abdominal Exam: Soft, Normal Bowel Sounds. absent: Tenderness - Extremities Exam Extremities Exam: Full ROM, Normal Capillary Refill, Normal Inspection. absent : Joint Swelling, Pedal Edema - Back Exam Back Exam: NORMAL INSPECTION - Neurological Exam Neurological Exam: Alert, Awake, CN II-XII Intact, Normal Gait, Oriented x3 Neuro motor strength exam: Left Upper Extremity: 5, Right Upper Extremity: 5, Left Lower Extremity: 5, Right Lower Extremity: 5 - Skin Skin Exam: Dry, Intact, Normal Color, Warm Assessment and Plan - Assessment and Plan (Free Text) Assessment: 57 y/o Female with PMHx of colitis, endometriosis, and depression who presented to the ED on 05/26 for headache, nausea, dizziness, and diarrhea x2 weeks in duration with worsening symptoms. Physical exam indicated mitral regurgitation murmur. Patient was worked up further and found to have severe MR on echo. Patient underwent cardiac cath that showed no significant ischemic disease. Also, GI was consulted given the patient's weight loss. Neurology was consulted for headache and recommended trial of Imitrex. Psychiatry was also consulted for the patient's underlying anxiety/depression, made no changes to the patient's current psychotropics. MRCP performed and patient is pending upper endoscopy today for intractable nausea and vomiting. Plan: Severe Mitral Regurgitation - rheumatic mitral valve (pending Mitral Valve Repair) - Patient will need surgical intervention (mitral valve repair) as outpatient at [facility] (Dr. Oneal). - s/p cardiac cath with fullness at cath site in groin: US of groin was negative for pseudoaneurysm - Cardiac Cath (05/28): no significant blockages or disease in the coronary arteries. Moderate pulmonary HTN. Mod-severe Mitral Regurgitation. - Cardio consulted; recs appreciated. - Echo (05/27): severe MR. Mild-mod TR. Consistent with rheumatic mitral valve. Mod-thickened mitral valve. EF 67%. Intractable Nausea/Vomiting in the setting of weight loss/early satiety - Plan for endoscopy today with GI. - MRCP: Multiple hemorrhagic cysts in the periphery of the L-Kidney with associated atrophy. - CEA and C19-9 elevated, however non-specific - Heme/onc consulted for elevated CEA and Ca19-9 and recommends, if clinical suspicoin remains high, a repeat of the CEA and CA 19-9 in the non-acute setting - Hx of diarrhea for 2 weeks and weight loss (12 pounds over 2 weeks). No diarrhea on admission. - stool leukocytes negative - CT Abd/Pelvis (05/26): no obvious lesions or abnormalities. However, no IV contrast used so difficult to assess pancreas. Recommend better image of pancreas when CARMELA resolves. - Prior colonoscopy is 2014 was normal - Given Miralax for constipation and one dose of Phenergan for nausea Headaches - Patient given one dose of Sumatriptan as trial therapy for possible migraine- not effective - Neuro recs appreciated. - ESR and CRP negative - Low suspicion for temporal arterities due to negative ESR and CRP Hx of Depression/Anxiety - Psych consulted - c/w home meds Episode of Ventricular Tachycardia - resolved - 12 lead EKG did not show further V-Tach - Patient did not have some symptom of reproducible chest pain likely secondary to musculoskeletal/anxiety etiology - Continue to monitor on telemetry - Cardiology following CARMELA 2/2 GI Loss vs. Decreased PO Intake/Acute Gastroenteritis - improved - Hx of 2 week diarrhea; conservative management - Nephro recs appreciated. - Hx of prior embolism in the kidney; consider cardio eval for paroxysmal Afib - UA negative PPx: - protonix for GI, scds for dvt Dispo: Patient stable for outpatient surgery for MV repair at [facility]. Pending endoscopy today. Case was discussed and reviewed with Attending Physician, Dr. Marquez. <Erika Marquez - Last Filed: 06/03/18 16:32> Objective - Vital Signs/Intake and Output Vital Signs (last 24 hours): Temp Pulse Resp BP Pulse Ox 98 F 76 20 110/71 97 06/02/18 12:00 06/02/18 12:00 06/02/18 12:00 06/02/18 12:00 06/02/18 06:00 - Labs Labs: 06/02/18 07:45 06/02/18 07:45 PT 13.0 SECONDS (9.4-12.5) H 05/29/18 06:30 INR 1.13 05/29/18 06:30 APTT 30.3 Seconds (25.1-36.5) 06/01/18 06:30 Attending/Attestation - Attestation I have personally seen and examined this patient.: Yes I have fully participated in the care of the patient.: Yes I have reviewed all pertinent clinical information, including history, physical exam and plan: Yes Notes (Text): 06/03/18 16:28 Attending note; Patient seen and examined with resident. Patient is a 57-year-old female past medical history significant for colitis, endometriosis, anxiety and depression that presented to the emergency room with headache, nausea,chest pain and dizziness. 1. Chest pain. Shortness of breath. Severe mitral regurgitation. Elevated BNP. Troponins within normal limits. Continue Lasix and Lisinopril. S/P cardiac catheterization which per perfumer shows no significant blockages of disease in the coronary arteries, moderate pulmonary hypertension, moderate to severe mitral regurgitation. Patient will need mitral valve repair. Chest CT shows no acute findings. 2-D echo shows normal left ventricle size, mild concentric left ventricular hypertrophy, left atrial function normal, EF 65%, mitral valve moderately thickened with decreased opening, morphology consistent with rheumatic mitral valve, doming of mitral leaflets, moderate mitral valve stenosis, mitral regurgitation severe 2. Headaches. Dizziness. Neurology following, recommendations appreciated. Continue morphine as needed. S/P dose of Imitrex. Head CT shows no intracranial process. ESR and CRP within normal limits. Low suspicion for temporal arteritis. 3. Abdominal pain currently pain is improved. Diarrhea resolved. CT abdomen and pelvis shows no acute findings related to/accounting for presentation. Patient for possible EGD today. Case discussed with GI in detail . 4.CARMELA. Creatinine stable. 5.Depression and anxiety. Patient is anxious at times. Continue Effexor. Continue Xanax and trazodone. Plan to transfer the patient to [facility] under Dr. Villanueva mitral valve replacement after EGD. Case discussed in detail with patient regarding current diagnosis and treatment plan.
[2018-06-01] MEDS ORDERED: Sodium Chloride 0.9% 1,000 ML IV SCH (17:00)
[2018-06-02 02:22] VITALS: RESP 20
[2018-06-02] MEDS: Pantoprazole 40 mg EC Tab PO SCH (05:50)
[2018-06-02 06:50] VITALS: O2SAT 97
[2018-06-02] MEDS: Morphine 2 mg/ml ISec IVP PRN (07:45)
[2018-06-02 08:00] LABS: HEMOGLOBIN 11.1 g/dL (12.0-16.0); MEAN CELL VOLUME 88.5 fl (80.0-105.0); MEAN CORPUSCULAR HEMOGLOBIN 29.1 pg (25.0-35.0); MEAN CORPUSCULAR HGB CONC 32.8 g/dl (31.0-37.0); MEAN PLATELET VOLUME 10.1 fl (7.0-11.0); RBC 3.82 10^6/uL (3.5-6.1); RED CELL DISTRIBUTION WIDTH 12.6 % (11.5-14.5)
[2018-06-02 08:18] LABS: ALB/GLOB RATIO 1.5 (1.1-1.8); ALBUMIN 3.3 g/dL (3.0-4.8); CALCIUM 8.7 mg/dL (8.4-10.5)
--- NOTE | 2018-06-02 09:32 | CP.PCM.PN ---
<Zach Peralta - Last Filed: 06/02/18 09:23> Subjective - Date & Time of Evaluation Date of Evaluation: 06/02/18 Time of Evaluation: 09:23 - Subjective Subjective: GI Fellow PGY4, I discussed results of EGD with patient and discussed dietary recommendations. She still complains of some nausea in the AM. Patients states Zofran helps. Objective - Vital Signs/Intake and Output Vital Signs (last 24 hours): Temp Pulse Resp BP Pulse Ox 98.1 F 88 20 120/78 97 06/02/18 06:00 06/02/18 06:00 06/02/18 06:00 06/02/18 06:00 06/02/18 06:00 Intake and Output: 06/02/18 06/02/18 06:59 18:59 Intake Total 1320 Balance 1320 - Medications Medications: Current Medications Acetaminophen (Tylenol 325mg Tab) 650 mg PO Q6H PRN PRN Reason: Headache Last Admin: 05/27/18 04:17 Dose: 650 mg Alprazolam (Xanax) 0.5 mg PO QID PRN; Protocol PRN Reason: Anxiety Furosemide (Lasix) 40 mg PO DAILY [facility] Last Admin: 06/01/18 09:02 Dose: 40 mg Heparin Sodium (Porcine) (Heparin) 5,000 units SC Q12 [facility] PRN Reason: Protocol Last Admin: 06/01/18 21:25 Dose: 5,000 units Home Med (Home Med) 1 unit PO DAILY [facility] Last Admin: 06/01/18 10:00 Dose: Not Given Lisinopril (Zestril) 5 mg PO DAILY [facility] Last Admin: 06/01/18 09:04 Dose: 5 mg Morphine Sulfate (Morphine) 1 mg IVP Q6H PRN PRN Reason: Pain, severe (8-10) Last Admin: 06/02/18 07:45 Dose: 1 mg Ondansetron HCl (Zofran Inj) 8 mg IVP Q8H PRN PRN Reason: Nausea/Vomiting Last Admin: 06/02/18 07:44 Dose: 8 mg Pantoprazole Sodium (Protonix Ec Tab) 40 mg PO 0600 [facility] Last Admin: 06/02/18 05:50 Dose: 40 mg Sucralfate (Carafate Oral Susp) 1 gm PO QID [facility] Last Admin: 06/01/18 23:29 Dose: Not Given Trazodone HCl (Desyrel) 200 mg PO HS [facility] Last Admin: 06/01/18 21:23 Dose: 200 mg Venlafaxine HCl (Effexor Xr) 150 mg PO DAILY [facility] Last Admin: 06/01/18 09:01 Dose: 150 mg - Labs Labs: 06/02/18 07:45 06/02/18 07:45 PT 13.0 SECONDS (9.4-12.5) H 05/29/18 06:30 INR 1.13 05/29/18 06:30 APTT 30.3 Seconds (25.1-36.5) 06/01/18 06:30 - Constitutional Appears: Non-toxic, No Acute Distress - Head Exam Head Exam: NORMAL INSPECTION - Eye Exam Eye Exam: Normal appearance - ENT Exam ENT Exam: Mucous Membranes Moist - Respiratory Exam Respiratory Exam: Clear to Ausculation Bilateral, NORMAL BREATHING PATTERN - Cardiovascular Exam Cardiovascular Exam: REGULAR RHYTHM, +S1, +S2, Murmur - GI/Abdominal Exam GI & Abdominal Exam: Soft, Normal Bowel Sounds. absent: Tenderness - Extremities Exam Extremities Exam: Normal Inspection - Neurological Exam Neurological Exam: Alert, Awake, Oriented x3 - Psychiatric Exam Psychiatric exam: Normal Affect, Normal Mood - Skin Skin Exam: Normal Color Assessment and Plan - Assessment and Plan (Free Text) Assessment: #Intractable N/V - improving #Abdominal pain - resolved #Acute diarrhea - resolved, Stool leukocytes neg. Negative Ova/parasites. stool culture neg. #wt. loss #Chest pain - cardiac cath 05/28/18 #Valvular heart disease, severe MR - Cardio recs MVR #CARMELA, possible CKD #Headache #Pulm HTN - RVSP 66 PLAN: -CT abd/pelv with oral contrast reviewed, no obvious lesions or obvious abnormalities, However no IV contrast so difficult to assess pancreas. -CEA and CA 19-9 elevated. Colonoscopy 2014 normal path. -MRI/MRCP for elevated tumor markers. No pancreatic mass or obvious GI related disease. -EGD 06/01 with signs of gastroparesis, possible post viral. Otherwise unremarkable. Biopsies taken. -Frequent small meals, low sodium diet. -Recommend 8mg Zofrant ODT as needed for two weeks -I discussed with patient about diet recs i.e. small meals, that you don't have to chew. -Okay to d/c for GI perspective. <Shan Man V - Last Filed: 06/02/18 22:11> Objective - Vital Signs/Intake and Output Vital Signs (last 24 hours): Temp Pulse Resp BP Pulse Ox 98 F 76 20 110/71 97 06/02/18 12:00 06/02/18 12:00 06/02/18 12:00 06/02/18 12:00 06/02/18 06:00 - Labs Labs: 06/02/18 07:45 06/02/18 07:45 PT 13.0 SECONDS (9.4-12.5) H 05/29/18 06:30 INR 1.13 05/29/18 06:30 APTT 30.3 Seconds (25.1-36.5) 06/01/18 06:30 Attending/Attestation - Attestation I have personally seen and examined this patient.: Yes I have fully participated in the care of the patient.: Yes I have reviewed all pertinent clinical information, including history, physical exam and plan: Yes Notes (Text): This is an addendum to GI progress report dictated by the GI Fellow.The patient was seen and examined earlier. Medical records, lab studies, imagings were reviewed. Last 24 hours events reviewed. Agreed with the above treatment plan as outlined in GI Fellow 's notes with the addition of the following Patient probably has gastroparesis mildly elevated CA 19-9 MRCP negative Mildly elevated CEA 5.3 Elective colonoscopy as an outpatient Last colonoscopy was in 2013 Awaiting for cardiac surgery for significant MR 06/02/18 22:08 06/02/18 22:10
[2018-06-02] MEDS: ALPRAZOLAM 0.5 MG PO SCH (10:00)
[2018-06-02] MEDS: Venlafaxine 75 mg ER Cap PO SCH (10:08)
[2018-06-02] MEDS: Sucralfate 1 gm/10 ml Oral Susp UD PO SCH (10:08)
--- NOTE | 2018-06-02 11:25 | CP.PCM.PN ---
Subjective - Date & Time of Evaluation Date of Evaluation: 06/02/18 Time of Evaluation: 11:24 - Subjective Subjective: Nephrology Consultation Note: Assessment: Stable Acute Kidney Injury (N17.9) likely due to GI fluid loss and decreased oral intake Likely underlying CKD 3 stable acute gastroenterittis Anemia left renal changes on imaging ? due to prior infection versus embolic infarction severe Mitral Regurg with pulmonary hypertension gastroparesis on EGD Plan No acute need for renal replacement therapy at this time. Maintain hemodynamics stable. Avoid hypotension. Patient started on low dose lisinopril Monitor Input/Output, daily weights and renal function with basic metabolic panel Anemia work up as per primary team cardiology following being planned for transfer to a tertiary care center for mitral valve repair Dose meds/antibiotics for reduced GFR. Avoid fleets enema/magnesium based laxatives. Avoid nephrotoxins/NSAIDs/ iodinated contrast (unless needed emergently) Glycemic control Further work up/management as per primary team Thanks for allowing me to participate in care of your patient. Will follow patient with you. Please call if any Qs. had d/w team Dr Desmond Yanes Office: [phone] Chief Complaint; nausea/loose stool Reason for consult: Acute Kidney Injury HPI: Pt is a 57 F without known hx of DM or HTN presented with complaints of decreased appetite, nausea/vomiting and loose stool for last 2 weeks with 15 weight loss due to it. she fee;s better now. BM soft. no further vomitting Denies OTC/herbal meds or NSAIDs No recent iodinated contrast exposure. No obvious episodes of low BP. pt says she had kidney infection as a teen otherwise not aware about kidney disease in past ROS: feels same. has headache but better Cardiovascular: No chest pain. Pulmonary: No shortness of breath now but gets at times Gastrointestinal: denies abdominal pain c/o nausea. No vomiting. no loose stool today Genitourinary: No pain while urinating. Denies blood in urine. All other negative except as mentioned in HPI Physical Examination: General Appearance: Comfortable, in no acute respiratory distress, co-operative . Vitals reviewed and noted as below Head; Atraumatic, normocephalic ENT: no ulcers no thrush. Tongue is midline. Oropharynx: no rash or ulcers. EYES: Pupils are equal, round and reactive to light accommodation. Eye muscles and extraocular movement intact. Sclera is anicteric. Neck; supple no lymphadenopathy, no thyromegaly or bruit Lungs: Normal respiratory rate/effort. Breath sounds bilateral equal and clear Heart: Normal rate. s1s2 normal. No rub or gallop. apical SM + Extremities: no edema. No varicose veins Neurological: Patient is alert, awake and oriented to person, place and time. No focal deficit. Strength bilateral appropriate and equal Skin: Warm and dry. Normal turgor. No rash. Palpitation: Normal elasticity for age Abdomen: Abdomen is soft. Bowel sounds +. There is no abdominal tenderness, no guarding/rigidity no organomegaly Psych: normal insight and normal affect/mood MSK: no joint tenderness or swelling. Digits and nails normal, no deformity : kidney or bladder not palpable Labs/imaging reviewed. Past medical history, past surgical history, family history, social history, allergy reviewed and noted as below Family hx: no hx of CKD. Rest non-contributory imaging; left renal parenchymal calcification and ? embolic infarction changes UA no protein or blood Objective - Vital Signs/Intake and Output Vital Signs (last 24 hours): Temp Pulse Resp BP Pulse Ox 98.1 F 88 20 122/68 97 06/02/18 06:00 06/02/18 06:00 06/02/18 06:00 06/02/18 10:12 06/02/18 06:00 Intake and Output: 06/02/18 06/02/18 06:59 18:59 Intake Total 1320 Balance 1320 - Medications Medications: Current Medications Acetaminophen (Tylenol 325mg Tab) 650 mg PO Q6H PRN PRN Reason: Headache Last Admin: 05/27/18 04:17 Dose: 650 mg Alprazolam (Xanax) 0.5 mg PO QID PRN; Protocol PRN Reason: Anxiety Last Admin: 06/02/18 10:08 Dose: 0.5 mg Furosemide (Lasix) 40 mg PO DAILY [facility] Last Admin: 06/02/18 10:12 Dose: 40 mg Heparin Sodium (Porcine) (Heparin) 5,000 units SC Q12 [facility] PRN Reason: Protocol Last Admin: 06/02/18 10:11 Dose: 5,000 units Home Med (Home Med) 1 unit PO DAILY [facility] Last Admin: 06/01/18 10:00 Dose: Not Given Lisinopril (Zestril) 5 mg PO DAILY [facility] Last Admin: 06/02/18 10:08 Dose: 5 mg Morphine Sulfate (Morphine) 1 mg IVP Q6H PRN PRN Reason: Pain, severe (8-10) Last Admin: 06/02/18 07:45 Dose: 1 mg Ondansetron HCl (Zofran Inj) 8 mg IVP Q8H PRN PRN Reason: Nausea/Vomiting Last Admin: 06/02/18 07:44 Dose: 8 mg Pantoprazole Sodium (Protonix Ec Tab) 40 mg PO 0600 [facility] Last Admin: 06/02/18 05:50 Dose: 40 mg Sucralfate (Carafate Oral Susp) 1 gm PO QID [facility] Last Admin: 06/02/18 10:08 Dose: 1 gm Trazodone HCl (Desyrel) 200 mg PO HS [facility] Last Admin: 06/01/18 21:23 Dose: 200 mg Venlafaxine HCl (Effexor Xr) 150 mg PO DAILY [facility] Last Admin: 06/02/18 10:08 Dose: 150 mg - Labs Labs: 06/02/18 07:45 06/02/18 07:45 PT 13.0 SECONDS (9.4-12.5) H 05/29/18 06:30 INR 1.13 05/29/18 06:30 APTT 30.3 Seconds (25.1-36.5) 06/01/18 06:30
[2018-06-02 12:04] VITALS: BP 110/71; PULSE 76; TEMP 98
--- NOTE | 2018-06-02 13:53 | PN ---
DATE: 06/02/2018 CARDIOLOGY FOLLOWUP SUBJECTIVE: The patient is without shortness of breath. PHYSICAL EXAMINATION: VITAL SIGNS: Stable. NECK: Negative JVD. LUNGS: Without rales. HEART: Reveals S1, S2. EXTREMITIES: Without edema. LABORATORY DATA: Laboratories were reviewed. IMPRESSION: 1. Resolution of congestive heart failure. 2. Subacute moderate to severe mitral regurgitation. 3. Abdominal pain. 4. History of hypertension. PLAN: Given these findings, the patient is for transfer to [facility] for mitral valve repair today. I have discussed the surgery with the patient in detail. The patient is agreeable. The patient is for transfer to the service of Dr. Oneal for mitral valve repair. Matthew Mckeon MD
--- NOTE | 2018-06-02 16:10 | CP.PCM.DIS ---
<ElioDanis - Last Filed: 06/02/18 15:58> Provider - Provider Date of Admission: 05/28/18 15:10 Attending physician: Erika Marquez MD Consults: Cardio: Dr. Mckeon Nephro: Dr. Hernandez Neuro: Dr. Bermudez GI: Dr. Man Heme/onc: Dr. Adams Psych: Dr. Webb Time Spent in preparation of Discharge (in minutes): 40 Diagnosis - Discharge Diagnosis (1) Mitral regurgitation Status: Acute Hospital Course - Lab Results Lab Results: Most Recent Lab Values WBC 5.0 10^3/ul (4.5-11.0) 06/02/18 07:45 RBC 3.82 10^6/uL (3.5-6.1) 06/02/18 07:45 Hgb 11.1 g/dL (12.0-16.0) L 06/02/18 07:45 Hct 33.8 % (36.0-48.0) L 06/02/18 07:45 MCV 88.5 fl (80.0-105.0) 06/02/18 07:45 MCH 29.1 pg (25.0-35.0) 06/02/18 07:45 MCHC 32.8 g/dl (31.0-37.0) 06/02/18 07:45 RDW 12.6 % (11.5-14.5) 06/02/18 07:45 Plt Count 282 10^3/uL (120.0-450.0) 06/02/18 07:45 MPV 10.1 fl (7.0-11.0) 06/02/18 07:45 Gran % 46.0 % (50.0-68.0) L 05/31/18 08:30 Lymph % (Auto) 45.3 % (22.0-35.0) H 05/31/18 08:30 Mckean % (Auto) 6.7 % (1.0-6.0) H 05/31/18 08:30 Eos % (Auto) 1.2 % (1.5-5.0) L 05/31/18 08:30 Baso % (Auto) 0.8 % (0.0-3.0) 05/31/18 08:30 Gran # 2.40 (1.4-6.5) 05/31/18 08:30 Lymph # (Auto) 2.4 (1.2-3.4) 05/31/18 08:30 Mckean # (Auto) 0.4 (0.1-0.6) 05/31/18 08:30 Eos # (Auto) 0.1 (0.0-0.7) 05/31/18 08:30 Baso # (Auto) 0.04 K/mm3 (0.0-2.0) 05/31/18 08:30 ESR 10 mm/hr (0.0-20.0) 05/27/18 18:33 PT 13.0 SECONDS (9.4-12.5) H 05/29/18 06:30 INR 1.13 05/29/18 06:30 APTT 30.3 Seconds (25.1-36.5) 06/01/18 06:30 Sodium 142 mmol/L (132-148) 06/02/18 07:45 Potassium 4.0 mmol/L (3.6-5.0) 06/02/18 07:45 Chloride 108 mmol/L (98-107) H 06/02/18 07:45 Carbon Dioxide 29 mmol/L (21-33) 06/02/18 07:45 Anion Gap 9 (10-20) L 06/02/18 07:45 BUN 12 mg/dL (7-21) 06/02/18 07:45 Creatinine 1.2 mg/dl (0.7-1.2) 06/02/18 07:45 Est GFR ( Amer) 56 06/02/18 07:45 Est GFR (Non-Af Amer) 47 06/02/18 07:45 Random Glucose 94 mg/dL (70-110) 06/02/18 07:45 Calcium 8.7 mg/dL (8.4-10.5) 06/02/18 07:45 Magnesium 1.9 mg/dL (1.7-2.2) 05/31/18 08:30 Total Bilirubin 0.1 mg/dL (0.2-1.3) L 06/02/18 07:45 AST 29 U/L (14-36) 06/02/18 07:45 ALT 48 U/L (7-56) 09/18/18 07:45 Alkaline Phosphatase 57 U/L (38-126) 06/02/18 07:45 Lactate Dehydrogenase 623 U/L (333-699) 05/26/18 18:58 Total Creatine Kinase 54 U/L (35-230) 05/26/18 18:58 Troponin I 0.04 ng/mL D 05/29/18 16:14 C-Reactive Protein < 5.00 mg/L (0.0-9.9) 05/28/18 06:30 NT-Pro-B Natriuret Pep 1790 pg/mL (0-450) H 05/27/18 15:52 Total Protein 5.5 g/dL (5.8-8.3) L 06/02/18 07:45 Albumin 3.3 g/dL (3.0-4.8) 06/02/18 07:45 Globulin 2.2 gm/dL 06/02/18 07:45 Albumin/Globulin Ratio 1.5 (1.1-1.8) 06/02/18 07:45 Lipase 200 U/L (23-300) 05/27/18 07:45 Carcinoembryonic Ag 5.2 ng/mL (0.0-3.0) H 05/27/18 07:45 CA 19-9 Antigen 43.7 U/mL (0-37) H 05/27/18 07:45 CA 125 Antigen < 5.5 U/mL (0-35) 05/27/18 07:45 Vitamin B12 437 pg/mL (239-931) 05/27/18 07:45 25-OH Vitamin D Total 51.6 NG/ML (30.0-100.0) 05/27/18 07:39 Free T4 0.85 ng/dL (0.78-2.19) 05/27/18 07:15 Free T3 pg/mL 2.99 pg/mL (2.77-5.27) 05/27/18 07:15 TSH 3rd Generation 2.62 mIU/mL (0.46-4.68) 05/27/18 07:15 Urine Color Light yellow (YELLOW) 05/27/18 07:50 Urine Appearance Clear (CLEAR) 05/27/18 07:50 Urine pH 5.0 (4.7-8.0) 05/27/18 07:50 Ur Specific [place] <= 1.005 (1.005-1.035) 05/27/18 07:50 Urine Protein Negative mg/dL (<30 mg/dL) 05/27/18 07:50 Urine Glucose (UA) Negative mg/dL (NEGATIVE) 05/27/18 07:50 Urine Ketones Negative mg/dL (NEGATIVE) 05/27/18 07:50 Urine Blood Negative (NEGATIVE) 05/27/18 07:50 Urine Nitrate Negative (NEGATIVE) 05/27/18 07:50 Urine Bilirubin Negative (NEGATIVE) 05/27/18 07:50 Urine Urobilinogen 0.2 E.U./dL (<1 E.U./dL) 05/27/18 07:50 Ur Leukocyte Esterase Trace Marika/uL (NEGATIVE) H 05/27/18 07:50 Urine RBC 0 - 2 /hpf (0-2) 05/27/18 07:50 Urine WBC 2 - 5 /hpf (0-6) 05/27/18 07:50 Ur Epithelial Cells 3 - 4 /hpf (0-5) 05/27/18 07:50 Urine Bacteria Few (NEG) 05/27/18 07:50 Ur Random Creatinine 40 mg/dL 05/27/18 07:50 Ur Random Sodium 37 meq/L 05/27/18 07:00 Stool Sodium TNP 05/27/18 10:00 Stool Potassium TNP 05/27/18 10:00 Stool Chloride TNP 05/27/18 10:00 Stool Occult Blood Negative (NEGATIVE) 05/31/18 19:05 Stool Leukocytes, Qual Negative (NEGATIVE) 05/27/18 10:00 Rheumatoid Factor <14 IU/mL (<14) 05/27/18 07:15 BRIDGETTE Screen Negative (NEGATIVE) 05/27/18 07:15 BRIDGETTE Titer TNP 05/27/18 07:15 BRIDGETTE Pattern TNP 05/27/18 07:15 SS-A Antibody <1.0 neg AI (<1.0 NEGATIVE) 05/27/18 07:15 SS-B Antibody <1.0 neg AI (<1.0 NEGATIVE) 05/27/18 07:15 Sm ([place]) Antibody <1.0 neg AI (<1.0 NEGATIVE) 05/27/18 07:15 SM/SENIOR INSIGHT MANAGER Antibody <1.0 neg AI (<1.0 NEGATIVE) 05/27/18 07:15 Scl-70 Antibody <1.0 neg AI (<1.0 NEGATIVE) 05/27/18 07:15 Anti-ds DNA Titer (Crith) TNP 05/27/18 07:15 Anti-ds DNA (Crithidia) Negative (NEGATIVE) 05/27/18 07:15 Ribosomal P Prot Ab <1.0 neg AI (<1.0 NEGATIVE) 05/27/18 07:15 Anti-Mitochondrial Titr TNP 05/27/18 07:15 Anti-Mitochondrial Ab Negative (NEGATIVE) 05/27/18 07:15 Actin IgG Antibody <20 U 05/27/18 07:15 Striated Muscle Ab Negative (NEGATIVE) 05/27/18 07:15 Myocardial Ab Titer TNP 05/27/18 07:15 Anti-Myocardial Ab Negative (NEGATIVE) 05/27/18 07:15 Reticulin Ab Titer TNP 05/27/18 07:15 Reticulin IgA Antibody Negative (NEGATIVE) 05/27/18 07:15 Thyroperoxidase Ab 2 IU/mL (<9) 05/27/18 07:15 Anti-Parietal Cell Ab 106.9 U H 05/27/18 07:15 Complement C3 100 mg/dL (83-193) 05/27/18 07:15 Complement C4 26 mg/dL (15-57) 05/27/18 07:15 HIV 1&2 Ag/Ab, 4th Gen Nonreactive (Nonreactive) 05/27/18 07:00 - Hospital Course Hospital Course: Danis Ballard, Discharge Summary for Dr. Marquez Hospital admission: Patient is a 57 year old AA female with PMHx of colitis, endometriosis, depression who presented to the ED on 05/26 with complaints of a headache, nausea , and dizziness. Patient states that she has had a worsening headache for the past 2 weeks, described as intermittent, located on the left temporal region, sharp, stabbing, 10/10. Pt states that the pain sometimes radiates across her forehead to the right temporal region. She denies any exacerbating events, and states that it is only mildly alleviated with Aleve which brings the pain down to a 8/10. She denies any history of migraines. She is also reporting abdominal pain for the past 1 week, associated with 2-3 episodes of diarrhea per day. Diarrhea is mostly liquid brown, but sometimes black. Abdominal pain is intermittent sharp, 7/10 and located across the lower abdomen, without alleviating or exacerbating symptoms. She states that she has lost 12 pounds over the past week, and has had decreased appetite and nausea, due to being afraid to eat. In the ED, Abdominal/pelvic CT with IV contrast which showed small pericardial effusion. EKG showed NSR with no acute ST or T wave changes. Cardiology was consulted for evaluation. Cardiology conducted echo which showed severe Mitral Regurgitation, mild-mod TR, morphology c/w rheumatic mitral valve. Patient received cardiac cath on 05/28 which confirmed mod-severe mitral regurgitation that requires mitral valve repair. Otherwise, coronary arteries did not have significant stenosis. Neurology was consulted for headache; they had ruled out temporal arterities; they are likely tension headaches. In regards to patient's intractable nausea and vomiting, GI was consulted. MRCP revealed multiple hemorrhagic cysts in the peripheral left kidney with associated atrophy. Further workup was conducted by GI with endoscopy (06/02) which showed gastroparesis. Psych was also consulted for episodes of anxiety, but no further intervention was warranted; psych signed off. Patient is currently stable for transfer to [facility] for Mitral Valve Repair. Upon Discharge: Patient will be transferred to [facility] for Mitral Valve Repair. Discharge Exam - Head Exam Head Exam: NORMAL INSPECTION - Eye Exam Eye Exam: EOMI, Normal appearance, PERRL - ENT Exam ENT Exam: Mucous Membranes Moist, Normal Exam - Neck Exam Neck exam: Full Rom - Respiratory Exam Respiratory Exam: Clear to PA & Lateral, NORMAL BREATHING PATTERN, UNREMARKABLE. absent: Rales, Rhonchi, Wheezes, Respiratory Distress, Stridor - Cardiovascular Exam Cardiovascular Exam: RRR, +S1, +S2, Systolic Murmur (Mitral regurg) - GI/Abdominal Exam GI & Abdominal Exam: Normal Bowel Sounds - Extremities Exam Extremities exam: full ROM, normal inspection - Neurological Exam Neurological exam: Alert, CN II-XII Intact, Normal Gait, Oriented x3 - Skin Skin Exam: Dry, Intact, Normal Color, Warm Discharge Plan - Discharge Medications Prescriptions: Ondansetron HCl [Zofran] 4 mg PO Q6H PRN #10 tablet PRN Reason: Nausea/Vomiting - Follow Up Plan Condition: STABLE Disposition: [facility] Additional Instructions: 1) Stable for transfer to [facility]. D/C instructions for Pleural Effusion and unplanned Weight loss <Erika Marquez - Last Filed: 06/03/18 16:38> Provider - Provider Date of Admission: 05/28/18 15:10 Attending physician: Erika Marquez MD Hospital Course - Lab Results Lab Results: Most Recent Lab Values WBC 5.0 10^3/ul (4.5-11.0) 06/02/18 07:45 RBC 3.82 10^6/uL (3.5-6.1) 06/02/18 07:45 Hgb 11.1 g/dL (12.0-16.0) L 06/02/18 07:45 Hct 33.8 % (36.0-48.0) L 06/02/18 07:45 MCV 88.5 fl (80.0-105.0) 06/02/18 07:45 MCH 29.1 pg (25.0-35.0) 06/02/18 07:45 MCHC 32.8 g/dl (31.0-37.0) 06/02/18 07:45 RDW 12.6 % (11.5-14.5) 06/02/18 07:45 Plt Count 282 10^3/uL (120.0-450.0) 06/02/18 07:45 MPV 10.1 fl (7.0-11.0) 06/02/18 07:45 Gran % 46.0 % (50.0-68.0) L 05/31/18 08:30 Lymph % (Auto) 45.3 % (22.0-35.0) H 05/31/18 08:30 Mckean % (Auto) 6.7 % (1.0-6.0) H 05/31/18 08:30 Eos % (Auto) 1.2 % (1.5-5.0) L 05/31/18 08:30 Baso % (Auto) 0.8 % (0.0-3.0) 05/31/18 08:30 Gran # 2.40 (1.4-6.5) 05/31/18 08:30 Lymph # (Auto) 2.4 (1.2-3.4) 05/31/18 08:30 Mckean # (Auto) 0.4 (0.1-0.6) 05/31/18 08:30 Eos # (Auto) 0.1 (0.0-0.7) 05/31/18 08:30 Baso # (Auto) 0.04 K/mm3 (0.0-2.0) 05/31/18 08:30 ESR 10 mm/hr (0.0-20.0) 05/27/18 18:33 PT 13.0 SECONDS (9.4-12.5) H 05/29/18 06:30 INR 1.13 05/29/18 06:30 APTT 30.3 Seconds (25.1-36.5) 06/01/18 06:30 Sodium 142 mmol/L (132-148) 06/02/18 07:45 Potassium 4.0 mmol/L (3.6-5.0) 06/02/18 07:45 Chloride 108 mmol/L (98-107) H 06/02/18 07:45 Carbon Dioxide 29 mmol/L (21-33) 06/02/18 07:45 Anion Gap 9 (10-20) L 06/02/18 07:45 BUN 12 mg/dL (7-21) 06/02/18 07:45 Creatinine 1.2 mg/dl (0.7-1.2) 06/02/18 07:45 Est GFR ( Amer) 56 06/02/18 07:45 Est GFR (Non-Af Amer) 47 06/02/18 07:45 Random Glucose 94 mg/dL (70-110) 06/02/18 07:45 Calcium 8.7 mg/dL (8.4-10.5) 06/02/18 07:45 Magnesium 1.9 mg/dL (1.7-2.2) 05/31/18 08:30 Total Bilirubin 0.1 mg/dL (0.2-1.3) L 06/02/18 07:45 AST 29 U/L (14-36) 06/02/18 07:45 ALT 48 U/L (7-56) 06/02/18 07:45 Alkaline Phosphatase 57 U/L (38-126) 06/02/18 07:45 Lactate Dehydrogenase 623 U/L (333-699) 05/26/18 18:58 Total Creatine Kinase 54 U/L (35-230) 05/26/18 18:58 Troponin I 0.04 ng/mL D 05/29/18 16:14 C-Reactive Protein < 5.00 mg/L (0.0-9.9) 05/28/18 06:30 NT-Pro-B Natriuret Pep 1790 pg/mL (0-450) H 05/27/18 15:52 Total Protein 5.5 g/dL (5.8-8.3) L 06/02/18 07:45 Albumin 3.3 g/dL (3.0-4.8) 06/02/18 07:45 Globulin 2.2 gm/dL 06/02/18 07:45 Albumin/Globulin Ratio 1.5 (1.1-1.8) 06/02/18 07:45 Lipase 200 U/L (23-300) 05/27/18 07:45 Carcinoembryonic Ag 5.2 ng/mL (0.0-3.0) H 05/27/18 07:45 CA 19-9 Antigen 43.7 U/mL (0-37) H 05/27/18 07:45 CA 125 Antigen < 5.5 U/mL (0-35) 05/27/18 07:45 Vitamin B12 437 pg/mL (239-931) 05/27/18 07:45 25-OH Vitamin D Total 51.6 NG/ML (30.0-100.0) 05/27/18 07:39 Free T4 0.85 ng/dL (0.78-2.19) 05/27/18 07:15 Free T3 pg/mL 2.99 pg/mL (2.77-5.27) 05/27/18 07:15 TSH 3rd Generation 2.62 mIU/mL (0.46-4.68) 05/27/18 07:15 Urine Color Light yellow (YELLOW) 05/27/18 07:50 Urine Appearance Clear (CLEAR) 05/27/18 07:50 Urine pH 5.0 (4.7-8.0) 05/27/18 07:50 Ur Specific [place] <= 1.005 (1.005-1.035) 05/27/18 07:50 Urine Protein Negative mg/dL (<30 mg/dL) 05/27/18 07:50 Urine Glucose (UA) Negative mg/dL (NEGATIVE) 05/27/18 07:50 Urine Ketones Negative mg/dL (NEGATIVE) 05/27/18 07:50 Urine Blood Negative (NEGATIVE) 05/27/18 07:50 Urine Nitrate Negative (NEGATIVE) 05/27/18 07:50 Urine Bilirubin Negative (NEGATIVE) 05/27/18 07:50 Urine Urobilinogen 0.2 E.U./dL (<1 E.U./dL) 05/27/18 07:50 Ur Leukocyte Esterase Trace Marika/uL (NEGATIVE) H 05/27/18 07:50 Urine RBC 0 - 2 /hpf (0-2) 05/27/18 07:50 Urine WBC 2 - 5 /hpf (0-6) 05/27/18 07:50 Ur Epithelial Cells 3 - 4 /hpf (0-5) 05/27/18 07:50 Urine Bacteria Few (NEG) 05/27/18 07:50 Ur Random Creatinine 40 mg/dL 05/27/18 07:50 Ur Random Sodium 37 meq/L 05/27/18 07:00 Stool Sodium TNP 05/27/18 10:00 Stool Potassium TNP 05/27/18 10:00 Stool Chloride TNP 05/27/18 10:00 Stool Occult Blood Negative (NEGATIVE) 05/31/18 19:05 Stool Leukocytes, Qual Negative (NEGATIVE) 05/27/18 10:00 Rheumatoid Factor <14 IU/mL (<14) 05/27/18 07:15 BRIDGETTE Screen Negative (NEGATIVE) 05/27/18 07:15 BRIDGETTE Titer TNP 05/27/18 07:15 BRIDGETTE Pattern TNP 05/27/18 07:15 SS-A Antibody <1.0 neg AI (<1.0 NEGATIVE) 05/27/18 07:15 SS-B Antibody <1.0 neg AI (<1.0 NEGATIVE) 05/27/18 07:15 Sm ([place]) Antibody <1.0 neg AI (<1.0 NEGATIVE) 05/27/18 07:15 SM/SENIOR INSIGHT MANAGER Antibody <1.0 neg AI (<1.0 NEGATIVE) 05/27/18 07:15 Scl-70 Antibody <1.0 neg AI (<1.0 NEGATIVE) 05/27/18 07:15 Anti-ds DNA Titer (Crith) TNP 05/27/18 07:15 Anti-ds DNA (Crithidia) Negative (NEGATIVE) 05/27/18 07:15 Ribosomal P Prot Ab <1.0 neg AI (<1.0 NEGATIVE) 05/27/18 07:15 Anti-Mitochondrial Titr TNP 05/27/18 07:15 Anti-Mitochondrial Ab Negative (NEGATIVE) 05/27/18 07:15 Actin IgG Antibody <20 U 05/27/18 07:15 Striated Muscle Ab Negative (NEGATIVE) 05/27/18 07:15 Myocardial Ab Titer TNP 05/27/18 07:15 Anti-Myocardial Ab Negative (NEGATIVE) 05/27/18 07:15 Reticulin Ab Titer TNP 05/27/18 07:15 Reticulin IgA Antibody Negative (NEGATIVE) 05/27/18 07:15 Thyroperoxidase Ab 2 IU/mL (<9) 05/27/18 07:15 Anti-Parietal Cell Ab 106.9 U H 05/27/18 07:15 Complement C3 100 mg/dL (83-193) 05/27/18 07:15 Complement C4 26 mg/dL (15-57) 05/27/18 07:15 HIV 1&2 Ag/Ab, 4th Gen Nonreactive (Nonreactive) 05/27/18 07:00 Attending/Attestation - Attestation I have personally seen and examined this patient.: Yes I have fully participated in the care of the patient.: Yes I have reviewed all pertinent clinical information, including history, physical exam and plan: Yes Notes (Text): Attending note; Patient seen and examined with resident. Status post EGD yesterday. Currently tolerating regular diet. Denies any nausea, vomiting. Denies any chest pain. Patient is less anxious today. Patient is a 57-year-old female past medical history significant for colitis, endometriosis, anxiety and depression that presented to the emergency room with headache, nausea,chest pain and dizziness. 1. Chest pain. Shortness of breath. Severe mitral regurgitation. Elevated BNP. Troponins within normal limits. Continue Lasix and Lisinopril. S/P cardiac catheterization which per saxophone teacher shows no significant blockages of disease in the coronary arteries, moderate pulmonary hypertension, moderate to severe mitral regurgitation. Patient will need mitral valve repair. patient will go to [facility] today. 2. Headaches. Dizziness. resolved. 3. Abdominal pain currently pain is improved. Diarrhea resolved. CT abdomen and pelvis shows no acute findings related to/accounting for presentation. MRCP is negative for any pancreatic mass. MRCP revealed multiple hemorrhagic cysts in the peripheral left kidney with associated atrophy. Further workup was conducted by GI with endoscopy (06/02) which showed gastroparesis. continue Carafate and Zofran. CA-19-9 is elevated. CEA is elevated. Oncology evaluation appreciated. Patient needs close outpatient follow-up. 4.CARMELA. Creatinine stable. 5.Depression and anxiety. Patient is anxious at times. Continue Effexor. Continue Xanax and trazodone. Plan to transfer the patient to [facility] under Dr. Oneal for mitral valve replacement. Case discussed in detail with patient regarding current diagnosis and treatment plan. 06/03/18 16:37
--- NOTE | 2018-06-04 08:15 | PQF ---
PROVIDER RESPONSE TEXT: Patient w CHF secondary to severe mitral regurgitation. Systolic and diastolic catagories not applica ble REVIEWER QUERY TEXT: CHF Acuity and Type Congestive Heart Failure is documented in the Medical Record. Please document the type and acuity (in cludes probable or suspected) Such as: Type: -- Systolic -- Diastolic -- Combined -- Other, please specify Acuity: -- Acute -- Chronic -- Acute on chronic -- Other, please specify Also please document the underlying cause of the CHF (includes probable or suspected) The patient's Clinical Indicators include: New onset CHF documented. Please specify type/severity as listed below. Thank you. Query created by: Myesha Mcgrath on 06/03/2018 11:53 AM Electronically signed by: Matthew Mckeon MD 06/04/2018 8:12 AM
== END 2018-06-02 14:40 | disposition short-term general hospital (02) | DRG 287 ==
LOC: ED 17:01 → ERH 05-27 00:47 → 5RSO 05-27 02:36 → 2RNO 05-27 16:15 → 2RSO 05-28 11:46 → OBSVTOIN 05-28 15:10 → 2RSO 05-28 20:57
PROVIDERS: ADMIT Hospitalist; ATTEND Internal Medicine
PROC: 4A023N8 Measurement of Cardiac Sampling and Pressure, Bilateral, Percutaneous Approach (ICD-10-PCS; principal; 2018-05-28)
PROC: B2111ZZ Fluoroscopy of Multiple Coronary Arteries using Low Osmolar Contrast (ICD-10-PCS; 2018-05-28)
PROC: B2151ZZ Fluoroscopy of Left Heart using Low Osmolar Contrast (ICD-10-PCS; 2018-05-28)
PROC: B2161ZZ Fluoroscopy of Right and Left Heart using Low Osmolar Contrast (ICD-10-PCS; 2018-05-28)
PROC: 0DB68ZX Excision of Stomach, Via Natural or Artificial Opening Endoscopic, Diagnostic (ICD-10-PCS; 2018-06-01)
DX: I05.1 Rheumatic mitral insufficiency (principal); I13.0 Hypertensive heart and chronic kidney disease with heart failure and stage 1 through stage 4 chronic kidney disease, or unspecified chronic kidney disease; N17.9 Acute kidney failure, unspecified; I31.3 Pericardial effusion (noninflammatory); I47.2 Ventricular tachycardia; I05.0 Rheumatic mitral stenosis; I27.20 Pulmonary hypertension, unspecified; I50.9 Heart failure, unspecified; Z80.0 Family history of malignant neoplasm of digestive organs; Z80.3 Family history of malignant neoplasm of breast; D64.9 Anemia, unspecified; K52.9 Noninfective gastroenteritis and colitis, unspecified; E86.9 Volume depletion, unspecified; F43.23 Adjustment disorder with mixed anxiety and depressed mood; K31.84 Gastroparesis; K59.00 Constipation, unspecified; N18.3 Chronic kidney disease, stage 3 (moderate); Z79.899 Other long term (current) drug therapy; F17.210 Nicotine dependence, cigarettes, uncomplicated; Z90.710 Acquired absence of both cervix and uterus

== ENCOUNTER 2018-09-05 13:05 | Observation (INO) | payer BC ==
--- NOTE | 2018-09-05 14:20 | ED PDOC ---
Arrival/HPI - General Chief Complaint: Shortness Of Breath Time Seen by Provider: 09/05/18 13:32 Historian: Patient - History of Present Illness Narrative History of Present Illness (Text): 09/05/18 14:19 A 57 year old female, whose past medical history includes hyperlipidemia, CAD, leaky valve with recent valve repair in May at [facility], and anxiety, presents to the emergency department complaining of chest pain for the past 2 days. Patient reports she has been having chest pain since the surgery but has been having a cough and worsening chest pain with any kind of activity. Patient describes pain as sharp and constant but worse with any activity. Patient denies any lower extremity edema, fever, chills, shortness of breath, diarrhea, nausea, vomiting, urinary symptoms, back pain, neck pain, headache, dizziness, or any other complaints. Time/Duration: Other (2 days) Symptom Onset: Gradual Symptom Course: Unchanged Activities at Onset: Light Context: Home Past Medical History - Provider Review Nursing Documentation Reviewed: Yes - Infectious Disease Hx of Infectious Diseases: None - Tetanus Immunization Tetanus Immunization: Unknown - Reproductive Menopause: Yes - Cardiac Hx Cardiac Disorders: Yes Other/Comment: open heart surgery - Pulmonary Hx Respiratory Disorders: No - Neurological Hx Neurological Disorder: No - HEENT Hx HEENT Disorder: No - Renal Hx Renal Disorder: No - Endocrine/Metabolic Hx Endocrine Disorders: No - Hematological/Oncological Hx Blood Transfusions: No Hx Blood Transfusion Reaction: No - Integumentary Hx Dermatological Disorder: No - Musculoskeletal/Rheumatological Hx Falls: No - Gastrointestinal Hx Gastrointestinal Disorders: No - Genitourinary/Gynecological Hx Genitourinary Disorders: No - Psychiatric Hx Psychophysiologic Disorder: No Hx Substance Use: No - Surgical History Hx Hysterectomy: Yes - Anesthesia Hx Anesthesia Reactions: No Hx Malignant Hyperthermia: No - Suicidal Assessment Feels Threatened In Home Enviroment: No Family/Social History - Physician Review Nursing Documentation Reviewed: Yes Family/Social History: No Known Family HX Smoking Status: Light Smoker < 10 Cigarettes Daily Hx Alcohol Use: No Hx Substance Use: No Hx Substance Use Treatment: No Allergies/Home Meds Allergies/Adverse Reactions: Allergies No Known Allergies Allergy (Verified 05/26/18 17:35) Home Medications: Home Meds Medication Instructions Recorded Confirmed RX: Alprazolam [Alprazolam Xr] 0.5 mg PO BID 05/26/18 05/27/18 RX: Venlafaxine HCl [Venlafaxine 150 mg PO DAILY 05/26/18 05/26/18 HCl ER] Review of Systems - Review of Systems Constitutional: absent: Fevers, Night Sweats Respiratory: Cough. absent: SOB Cardiovascular: Chest Pain Gastrointestinal: absent: Diarrhea, Nausea, Vomiting Genitourinary Female: absent: Urine Output Changes Musculoskeletal: absent: Back Pain, Neck Pain, Other (no lower extremity edema) Neurological: absent: Headache, Dizziness Physical Exam Vital Signs Reviewed: Yes Vital Signs Temp Pulse Resp BP Pulse Ox 09/05/18 13:19 98.3 F 72 18 136/81 100 Temperature: Afebrile Blood Pressure: Normal Pulse: Regular Respiratory Rate: Normal Appearance: Positive for: Well-Appearing - Systems Exam Head: Present: Atraumatic, Normocephalic Pupils: Present: PERRL Extroacular Muscles: Present: EOMI Conjunctiva: Present: Normal Respiratory/Chest: Present: Tender to Palpation (+tenderness to palpation of her chest wall) Cardiovascular: Present: Regular Rate and Rhythm, Normal S1, S2. No: Murmurs Abdomen: No: Tenderness, Distention, Peritoneal Signs Back: Present: Normal Inspection Upper Extremity: Present: Normal Inspection. No: Cyanosis, Edema Lower Extremity: Present: Normal Inspection. No: Edema Neurological: Present: GCS=15, CN II-XII Intact, Speech Normal Skin: Present: Warm, Dry, Normal Color. No: Rashes Psychiatric: Present: Alert, Oriented x 3, Normal Insight, Normal Concentration Medical Decision Making ED Course and Treatment: 09/05/18 14:20 Impression: 57 year old female presenting to the emergency department complaining of chest pain. Plan: -- VBG -- EKG -- Labs -- CBC -- D Dimer -- COAGs -- Blood culture -- Urinalysis -- Reassess and disposition Prior Visits: Notes and results from previous visits were reviewed. Progress Notes: 09/05/18 19:01 Pt in ED for stated history. She was hemodynamically stable EKG NSR @ 72bpm. N-stemi Chest xray IMPRESSION: New mitral valve identified as are postoperative changes related to median sternotomy. Left lower lobe infiltrate/atelectasis also a new finding. Lab was unremarkable PT was started on Rocephin and Zithromax She is already on Warfarin She was admitted for pneumonia and chest pain Case was DW Dr. Boswell and he accepted pt for admission - RAD Interpretation Radiology Orders: 09/05/18 13:49 CHEST PORTABLE [RAD] Stat - Scribe Statement The provider has reviewed the documentation as recorded by the Scribgricelda Lubin All medical record entries made by the Scribe were at my direction and personally dictated by me. I have reviewed the chart and agree that the record accurately reflects my personal performance of the history, physical exam, medical decision making, and the department course for this patient. I have also personally directed, reviewed, and agree with the discharge instructions and disposition. Disposition/Present on Arrival - Present on Arrival Any Indicators Present on Arrival: No History of DVT/PE: No History of Uncontrolled Diabetes: No Urinary Catheter: No History of Decub. Ulcer: No History Surgical Site Infection Following: None - Disposition Have Diagnosis and Disposition been Completed?: Yes Diagnosis: Chest pain, Pneumonia Disposition: HOSPITALIZED Disposition Time: 17:00 Patient Plan: Admission Patient Problems: Current Active Problems Problem Status Onset Chest pain Acute Pneumonia Acute Condition: FAIR
--- NOTE | 2018-09-05 14:21 | RAD ---
Date of service: 09/05/2018 HISTORY: chest pain/SOB COMPARISON: 05/26/2018 FINDINGS: LUNGS: Atelectasis/infiltrate left lower lobe. PLEURA: No significant pleural effusion identified, no pneumothorax apparent. CARDIOVASCULAR: No atherosclerotic calcification present New mitral valve identified. OSSEOUS STRUCTURES: No significant abnormalities. VISUALIZED UPPER ABDOMEN: Normal. OTHER FINDINGS: None. IMPRESSION: New mitral valve identified as are postoperative changes related to median sternotomy. Left lower lobe infiltrate/atelectasis also a new finding.
[2018-09-05] MEDS ORDERED: Morphine 4 mg/ml ISec IVP STA (15:02)
[2018-09-05] MEDS ORDERED: cefTRIAXone 1 gm 1 GM/100 ML BAG IVPB STA (15:03)
[2018-09-05] MEDS ORDERED: Azithromycin 500MG/NS 250ml 500 MG/250 ML BAG IVPB STA (15:05)
[2018-09-05 15:20] LABS: BASO # 0.05 K/mm3 (0.0-2.0); BASO % 0.6 % (0.0-3.0); EOS % 0.2 % (1.5-5.0); GRAN # 4.99 (1.4-6.5); GRAN % 55.4 % (50.0-68.0); HEMOGLOBIN 11.7 g/dL (12.0-16.0); LYMPH # 3.5 (1.2-3.4); LYMPH % 38.3 % (22.0-35.0); MEAN CELL VOLUME 88.9 fl (80.0-105.0); MEAN CORPUSCULAR HEMOGLOBIN 28.7 pg (25.0-35.0); MEAN CORPUSCULAR HGB CONC 32.3 g/dl (31.0-37.0); MEAN PLATELET VOLUME 10.4 fl (7.0-11.0); MONO # 0.5 (0.1-0.6); MONO % 5.5 % (1.0-6.0); RBC 4.07 10^6/uL (3.5-6.1); RED CELL DISTRIBUTION WIDTH 14.2 % (11.5-14.5)
[2018-09-05 15:27] LABS: VENOUS BLOOD GAS BASE EXCESS 6.7 mmol/L (0.0-2.0); VENOUS BLOOD GAS PO2 66 mm/Hg (30-55); VENOUS BLOOD PH 7.39 (7.32-7.43)
[2018-09-05 16:45] LABS: PH,URINE 8.5 (4.7-8.0); URINE BILIRUBIN NEGATIVE (NEGATIVE); URINE BLOOD NEGATIVE (NEGATIVE); URINE GLUCOSE (UA) NEGATIVE (NEGATIVE); URINE LEUKOCYTE ESTERASE NEGATIVE Leu/uL (NEGATIVE); URINE PROTEIN NEGATIVE mg/dL (<30 mg/dL); URINE UROBILINOGEN 0.2 E.U./dL (<1 E.U./dL)
[2018-09-05 16:52] LABS: ALB/GLOB RATIO 1.6 (1.1-1.8); ALBUMIN 4.2 g/dL (3.0-4.8); BLOOD UREA NITROGEN 12 mg/dL (7-21); CALCIUM 9.2 mg/dL (8.4-10.5); GFR NON-AFRICAN AMERICAN > 60
[2018-09-05 16:54] LABS: URINE APPEARANCE CLEAR (CLEAR); URINE COLOR YELLOW (YELLOW)
[2018-09-05 16:57] LABS: ALT/SGPT 24 U/L (7-56); AST/SGOT 38 U/L (14-36)
[2018-09-05 17:04] LABS: B-TYPE NATRIURETIC PEPTIDE 461 pg/mL (0-450); TROPONIN I < 0.01 ng/mL
[2018-09-05 17:18] LABS: D DIMER < 200 ng/mlDDU (0-243); INR 2.51; PARTIAL THROMBOPLASTIN TIME 34.6 Seconds (25.1-36.5); PROTHROMBIN TIME 29.2 SECONDS (9.4-12.5)
[2018-09-05] MEDS ORDERED: Morphine 2 mg/ml ISec IVP PRN (17:52)
[2018-09-05] MEDS ORDERED: Albuterol-Ipratrop 3 mg / 0.5 (3 ml) UD IH PRN (18:21)
--- NOTE | 2018-09-05 18:25 | CP.PCM.HP ---
<Marcel Miller - Last Filed: 09/05/18 18:31> History of Present Illness - History of Present Illness History of Present Illness: Marcel Miller DO, PGY-2: Hospitalist Service 57 year old AA female with PMHx of rheumatic heart disease, mitral valve replacement in May, endometriosis, depression, depression who presented to the ED with chest pain and back pain not associated with exertion and a dry cough. She reports having this pain since her surgery,scales in 7/10 in severity, non-radiating, not worsened with exertion or associated with dyspnea. She reports using opiods for relief, but running out of them recently. She denies fever, chills, cough, rigors, skin or vision changes. She denies nausea, vomiting, or diarrhea. In the ED chest X-ray showed possible infiltrate. She is also on Coumadin and takes 5 mg everday of the week, except for on Friday and , in which case she takes 7.5 mg. Otherwise, a 12-point ROS was reviewed and is unremarkable. PMD: Deduosis Psych: Dr Calvillo PMHx: colitis 2015, endometriosis, kidney issues when a teenage but hasn't had any problems since, 8 herniated discs with chronic back pain, depression, RHD, mitral valve replacement PSHx: fibroids removal with ultimate hysterectomy in early FHx: granfather with pancreaatic cancer, aunt with metastatic breast cancer diagnosed in early 60s and soon after dx Meds: trazodone, alprazolam xr, venlafaxine, vitamin d, multivitamins Allx: NKDA Social Hx: smokes 1-2 cigs per day, 20 pack year history, quit etoh 26 years ago, denies illicit drugs use for over 20 years (no history of IV drug use) Preventative: Colonoscopy in 2016 which was normal as per pt. mammogram last year which was normal as per pt. Present on Admission - Present on Admission Any Indicators Present on Admission: No Review of Systems - Review of Systems All systems: reviewed and no additional remarkable complaints except (as per HPI) Past Patient History - Infectious Disease Hx of Infectious Diseases: None - Tetanus Immunizations Tetanus Immunization: Unknown - Past Social History Smoking Status: Light Smoker < 10 Cigarettes Daily - CARDIAC Hx Cardiac Disorders: Yes Other/Comment: open heart surgery - PULMONARY Hx Respiratory Disorders: No - NEUROLOGICAL Hx Neurological Disorder: No - HEENT Hx HEENT Problems: No - RENAL Hx Chronic Kidney Disease: No - ENDOCRINE/METABOLIC Hx Endocrine Disorders: No - HEMATOLOGICAL/ONCOLOGICAL Hx Blood Transfusions: No Hx Blood Transfusion Reaction: No - INTEGUMENTARY Hx Dermatological Problems: No - MUSCULOSKELETAL/RHEUMATOLOGICAL Hx Falls: No - GASTROINTESTINAL Hx Gastrointestinal Disorders: No - GENITOURINARY/GYNECOLOGICAL Hx Genitourinary Disorders: No - PSYCHIATRIC Hx Psychophysiologic Disorder: No Hx Substance Use: No - SURGICAL HISTORY Hx Hysterectomy: Yes - ANESTHESIA Hx Anesthesia Reactions: No Hx Malignant Hyperthermia: No Meds Allergies/Adverse Reactions: Allergies Allergy/AdvReac Type Severity Reaction Status Date / Time No Known Allergies Allergy Verified 09/05/18 20:58 Physical Exam - Constitutional Appears: Well, Non-toxic - Head Exam Head Exam: ATRAUMATIC, NORMOCEPHALIC - Eye Exam Eye Exam: EOMI, Normal appearance. absent: Scleral icterus - ENT Exam ENT Exam: Mucous Membranes Moist, Normal Oropharynx - Neck Exam Neck exam: Positive for: Normal Inspection. Negative for: Lymphadenopathy, Thyromegaly - Respiratory Exam Respiratory Exam: Decreased Breath Sounds (in left lung base), NORMAL BREATHING PATTERN. absent: Accessory Muscle Use, Rales, Wheezes - Cardiovascular Exam Cardiovascular Exam: RRR, +S1, +S2 Additional comments: surgical scar noted along sternum - GI/Abdominal Exam GI & Abdominal Exam: absent: Guarding, Rebound - Extremities Exam Extremities exam: Positive for: normal inspection. Negative for: calf tenderness - Neurological Exam Neurological exam: Alert, CN II-XII Intact, Oriented x3 - Psychiatric Exam Psychiatric exam: Normal Affect, Normal Mood - Skin Skin Exam: Dry, Intact, Normal Color, Warm Results - Vital Signs Recent Vital Signs: Last Vital Signs Temp 98.3 F 09/05/18 13:19 Pulse 69 09/05/18 16:03 Resp 18 09/05/18 16:03 BP 134/75 09/05/18 16:03 Pulse Ox 100 09/05/18 16:03 - Labs Result Diagrams: 09/05/18 15:00 09/05/18 16:30 Labs: Laboratory Results - last 24 hr 09/05/18 09/05/18 09/05/18 15:00 15:00 16:10 WBC 9.0 RBC 4.07 Hgb 11.7 L Hct 36.2 MCV 88.9 MCH 28.7 MCHC 32.3 RDW 14.2 Plt Count 358 MPV 10.4 Gran % 55.4 Lymph % (Auto) 38.3 H [place] % (Auto) 5.5 Eos % (Auto) 0.2 L Baso % (Auto) 0.6 Gran # 4.99 Lymph # (Auto) 3.5 H [place] # (Auto) 0.5 Eos # (Auto) 0.0 Baso # (Auto) 0.05 PT INR APTT D-Dimer, Quantitative pO2 66 H VBG pH 7.39 VBG pCO2 55.0 VBG HCO3 33.3 H VBG Total CO2 35.0 H VBG O2 Sat (Calc) 95.4 H VBG Base Excess 6.7 H VBG Potassium 6.6 H* Sodium 137.0 Chloride 104.0 Glucose 72 Lactate 1.6 FiO2 21.0 Potassium Carbon Dioxide Anion Gap BUN Creatinine Est GFR ( Amer) Est GFR (Non-Af Amer) Random Glucose Calcium Magnesium Total Bilirubin AST ALT Alkaline Phosphatase Lactate Dehydrogenase Total Creatine Kinase Troponin I NT-Pro-B Natriuret Pep Total Protein Albumin Globulin Albumin/Globulin Ratio Venous Blood Potassium 6.6 H* Urine Color Yellow Urine Appearance Clear Urine pH 8.5 Ur Specific [place] 1.025 Urine Protein Negative Urine Glucose (UA) Negative Urine Ketones Negative Urine Blood Negative Urine Nitrate Negative Urine Bilirubin Negative Urine Urobilinogen 0.2 Ur Leukocyte Esterase Negative Influenza Typ A,B (EIA) 09/05/18 09/05/18 09/05/18 16:30 16:30 17:26 WBC RBC Hgb Hct MCV MCH MCHC RDW Plt Count MPV Gran % Lymph % (Auto) [place] % (Auto) Eos % (Auto) Baso % (Auto) Gran # Lymph # (Auto) [place] # (Auto) Eos # (Auto) Baso # (Auto) PT 29.2 H INR 2.51 APTT 34.6 D-Dimer, Quantitative < 200 pO2 VBG pH VBG pCO2 VBG HCO3 VBG Total CO2 VBG O2 Sat (Calc) VBG Base Excess VBG Potassium Sodium 138 Chloride 102 Glucose Lactate FiO2 Potassium 4.4 Carbon Dioxide 30 Anion Gap 10 BUN 12 Creatinine 0.7 Est GFR ( Amer) > 60 Est GFR (Non-Af Amer) > 60 Random Glucose 86 Calcium 9.2 Magnesium 1.9 Total Bilirubin 0.6 AST 38 H D ALT 24 Alkaline Phosphatase 77 Lactate Dehydrogenase 1222 H Total Creatine Kinase 72 Troponin I < 0.01 D NT-Pro-B Natriuret Pep 461 H Total Protein 6.8 Albumin 4.2 Globulin 2.6 Albumin/Globulin Ratio 1.6 Venous Blood Potassium Urine Color Urine Appearance Urine pH Ur Specific [place] Urine Protein Urine Glucose (UA) Urine Ketones Urine Blood Urine Nitrate Urine Bilirubin Urine Urobilinogen Ur Leukocyte Esterase Influenza Typ A,B (EIA) Negative for flu a/b Assessment & Plan - Assessment and Plan (Free Text) Assessment: 57 year old female with a past medical history of rheumatic heart disease, s/p mitral valve replacement in 05/2018, anxiety, depression, who presents with non-radiating, non-exertional chest pain found to have infiltrate in left lower lung, questionable for pneumonia given the lack of systemic symptoms. Plan: 1) Chest pain r/o ACS - EKG shows findings not consistent for ischemia - Trend troponins x3; initial negative - Cardiology consulted, Dr. Mckeon - Morphine 1 mg IVP q6h PRN for severe pain 2) Left lower lobe infiltrate; r/o pneumonia - Non-contrast CT of chest to better assess lung broussard given patient gives no history related to cough, fever, or loss or other symptoms consistent with pneumonia - Procalcitonin - Will hold off on antibiotics at this time - ISS encouraged - Duonebs q4h PRN 3) Anticoagulation for mechanical valve - Warfarin 5 mg tomorrow - Check INR 4) Anxiety/Depression - Xanax o.5 QID PRN - Trazadone 200 mg HS - Venlafaxine 150 ER PO daily 5) DVT prophylaxis - patient already on warfarin Case reviewed and discussed with attending physician, Dr. Heidi Ordaz - Date & Time Date: 09/05/18 Time: 18:59 <Heidi Ordaz R - Last Filed: 09/06/18 10:20> Results - Vital Signs Recent Vital Signs: Last Vital Signs Temp 98.6 F 09/06/18 05:44 Pulse 84 09/06/18 05:44 Resp 20 09/06/18 05:44 BP 117/70 09/06/18 05:44 Pulse Ox 97 09/06/18 05:44 - Labs Result Diagrams: 09/05/18 15:00 09/05/18 16:30 Labs: Laboratory Results - last 24 hr 09/05/18 09/05/18 09/05/18 15:00 15:00 16:10 WBC 9.0 RBC 4.07 Hgb 11.7 L Hct 36.2 MCV 88.9 MCH 28.7 MCHC 32.3 RDW 14.2 Plt Count 358 MPV 10.4 Gran % 55.4 Lymph % (Auto) 38.3 H [place] % (Auto) 5.5 Eos % (Auto) 0.2 L Baso % (Auto) 0.6 Gran # 4.99 Lymph # (Auto) 3.5 H [place] # (Auto) 0.5 Eos # (Auto) 0.0 Baso # (Auto) 0.05 PT INR APTT D-Dimer, Quantitative pO2 66 H VBG pH 7.39 VBG pCO2 55.0 VBG HCO3 33.3 H VBG Total CO2 35.0 H VBG O2 Sat (Calc) 95.4 H VBG Base Excess 6.7 H VBG Potassium 6.6 H* Sodium 137.0 Chloride 104.0 Glucose 72 Lactate 1.6 FiO2 21.0 Potassium Carbon Dioxide Anion Gap BUN Creatinine Est GFR ( Amer) Est GFR (Non-Af Amer) Random Glucose Calcium Magnesium Total Bilirubin AST ALT Alkaline Phosphatase Lactate Dehydrogenase Total Creatine Kinase Troponin I NT-Pro-B Natriuret Pep Total Protein Albumin Globulin Albumin/Globulin Ratio Venous Blood Potassium 6.6 H* Urine Color Yellow Urine Appearance Clear Urine pH 8.5 Ur Specific [place] 1.025 Urine Protein Negative Urine Glucose (UA) Negative Urine Ketones Negative Urine Blood Negative Urine Nitrate Negative Urine Bilirubin Negative Urine Urobilinogen 0.2 Ur Leukocyte Esterase Negative Influenza Typ A,B (EIA) 09/05/18 09/05/18 09/05/18 16:30 16:30 17:26 WBC RBC Hgb Hct MCV MCH MCHC RDW Plt Count MPV Gran % Lymph % (Auto) [place] % (Auto) Eos % (Auto) Baso % (Auto) Gran # Lymph # (Auto) [place] # (Auto) Eos # (Auto) Baso # (Auto) PT 29.2 H INR 2.51 APTT 34.6 D-Dimer, Quantitative < 200 pO2 VBG pH VBG pCO2 VBG HCO3 VBG Total CO2 VBG O2 Sat (Calc) VBG Base Excess VBG Potassium Sodium 138 Chloride 102 Glucose Lactate FiO2 Potassium 4.4 Carbon Dioxide 30 Anion Gap 10 BUN 12 Creatinine 0.7 Est GFR ( Amer) > 60 Est GFR (Non-Af Amer) > 60 Random Glucose 86 Calcium 9.2 Magnesium 1.9 Total Bilirubin 0.6 AST 38 H D ALT 24 Alkaline Phosphatase 77 Lactate Dehydrogenase 1222 H Total Creatine Kinase 72 Troponin I < 0.01 D NT-Pro-B Natriuret Pep 461 H Total Protein 6.8 Albumin 4.2 Globulin 2.6 Albumin/Globulin Ratio 1.6 Venous Blood Potassium Urine Color Urine Appearance Urine pH Ur Specific [place] Urine Protein Urine Glucose (UA) Urine Ketones Urine Blood Urine Nitrate Urine Bilirubin Urine Urobilinogen Ur Leukocyte Esterase Influenza Typ A,B (EIA) Negative for flu a/b 09/05/18 09/06/18 09/06/18 22:00 07:30 07:30 WBC RBC Hgb Hct MCV MCH MCHC RDW Plt Count MPV Gran % Lymph % (Auto) [place] % (Auto) Eos % (Auto) Baso % (Auto) Gran # Lymph # (Auto) [place] # (Auto) Eos # (Auto) Baso # (Auto) PT 30.0 H INR 2.56 APTT D-Dimer, Quantitative pO2 VBG pH VBG pCO2 VBG HCO3 VBG Total CO2 VBG O2 Sat (Calc) VBG Base Excess VBG Potassium Sodium Chloride Glucose Lactate FiO2 Potassium Carbon Dioxide Anion Gap BUN Creatinine Est GFR ( Amer) Est GFR (Non-Af Amer) Random Glucose Calcium Magnesium Total Bilirubin AST ALT Alkaline Phosphatase Lactate Dehydrogenase Total Creatine Kinase Troponin I < 0.01 < 0.01 NT-Pro-B Natriuret Pep Total Protein Albumin Globulin Albumin/Globulin Ratio Venous Blood Potassium Urine Color Urine Appearance Urine pH Ur Specific [place] Urine Protein Urine Glucose (UA) Urine Ketones Urine Blood Urine Nitrate Urine Bilirubin Urine Urobilinogen Ur Leukocyte Esterase Influenza Typ A,B (EIA) Attending/Attestation - Attestation I have personally seen and examined this patient.: Yes I have fully participated in the care of the patient.: Yes I have reviewed all pertinent clinical information: Yes Notes (Text): Patient seen and examined by me with resident at 5:25 PM on 09/05/18. Case in cluding HPI, physical exam, and assessment and plan discussed with resident. Agree with above with following additions/corrections. Patient is a 57-year-old female past medical history significant for colitis, endometriosis, chronic back pain s/p herniated discs, anxiety and depression, rheumatic heart disease, and mitral valve replacement in May 2018 that presented to the emergency room with left sided reproducible chest pain and left upper back pain that has progressively gotten worse since having open-heart surgery in May 2018. Patient states that she was taking oxycodone as nee ded at home for the pain. However, she recently ran out of the medication. She states that she was given tramadol by her primary care doctor which did not help. Patient states that the pain got worse couple of days ago. The pain is pressure-like and is constant. Patient states that the pain goes across her chest and into the left side of her back. Patient did not take anything for the pain as she ran out of her oxycodone. Patient states that she also has shortness of breath however this only happens when she becomes anxious. She denies any headaches or lightheadedness. Patient states she is feeling a little dizzy. No nausea, vomiting, or abdominal pain. No fevers or chills. No dysuria. Patient states that she does have a history of constipation however she did have a bowel movement yesterday. No neck pain. No dysuria. 12 point review of systems reviewed by me. Please see above HPI, all other systems negative. 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 Patient is a current smoker. Smokes approximately 1 cigarette a day. Patient has been smoking for 40 years. Denies alcohol or illicit drug use. Family history: Mother is alive and has hypertension and hearing problems. Father and was murdered. Physical exam: General: Awake and alert lying in bed in no acute distress HEENT: Normocephalic, atraumatic. Extraocular muscles intact, pupils equal and reactive, no scleral icterus. Oropharynx is pink and moist. No pharyngeal erythema or exudate appreciated. Neck is supple. Hearing grossly intact. Ears and nose externally unremarkable. Cardiovascular: Regular rhythm. Normal S1 and S2. Positive opening snap. No rubs or gallops appreciated. Pulmonary: Normal respiratory effort. No rhonchi, rales, or wheezing appreciated. Gastrointestinal: Soft, nondistended. Nontender. Positive bowel sounds all 4 quadrants. No guarding. Musculoskeletal: Moves all extremities. No calf tenderness. No edema appreciated. No CVA tenderness. Positive and anterior chest wall tenderness, more prominent on left above left breast. Positive left upper back paraspinal muscle tenderness. Central nervous system: AAO x3, CN II through XII grossly intact. 5/5 muscle strength all extremities. Dermatologic: Skin warm and dry. Assessment and plan: Patient is a 57-year-old female past medical history signi ficant for colitis, endometriosis, chronic back pain s/p herniated discs, anxiety and depression, rheumatic heart disease, and mitral valve replacement in May 2018 that presented to the emergency room with left sided reproducible chest pain and left upper back pain that has progressively gotten worse since having open-heart surgery in May 2018. 1. Chest pain. Likely musculoskeletal secondary to recent open heart surgery. First troponin within normal limits. Follow up serial troponins. Cardiology consulted, follow up recommendations. D-dimer <200. BNP 461. Follow up chest CT. 2. Abnormal chest xray. Chest xray as read by me shows left lower lobe haziness, ?infiltrate. Patient afebrile. No leukocytosis. Will get Chest CT to rule out pneumonia. Incentive spirometer ordered 3. S/P mitral valve replacement. Continue home Coumadin. INR therapeutic. Follow up repeat INR in AM. 4. Depression and anxiety. Contine home Xananx prn. Continue home Effexor XR. Patient to continue to follow up outpatient with her psychiatrist. Case was discussed in detail with the patient regarding current diagnosis and treatment plan. All questions answered.
[2018-09-05] MEDS: Morphine 2 mg/ml ISec IVP PRN (20:00)
[2018-09-05] MEDS ORDERED: Lidocaine 5% Oint(35 gm) TOP ONE (21:26)
[2018-09-05 23:49] VITALS: BMI 23.1
[2018-09-05] MEDS ORDERED: Influenza Vaccine 60 mcg/0.5 mL SYR (4YR UP) IM ONE (23:49)
[2018-09-05] MEDS ORDERED: Pneumococcal 23-Valent Vaccine IM ONE (23:49)
[2018-09-06 08:27] LABS: INR 2.56
[2018-09-06] MEDS: Morphine 2 mg/ml ISec IVP PRN ×2 (08:46→14:54)
--- NOTE | 2018-09-06 09:13 | CARD ---
APPROVED REPORT Date of service: 09/05/2018 EKG Measurement Heart [id number] <Conclusion> Normal sinus rhythm Low voltage QRS Nonspecific T wave abnormality, new
[2018-09-06] MEDS ORDERED: Venlafaxine 75 mg ER Cap PO SCH (10:00)
[2018-09-06] MEDS: Venlafaxine 75 mg ER Cap PO SCH (10:37)
--- NOTE | 2018-09-06 11:16 | CT ---
Date of service: 09/05/2018 PROCEDURE: CT Chest without contrast HISTORY: r/o pna COMPARISON: 05/26/2018 CT thorax. September 05, 2018. Single-view chest TECHNIQUE: Contiguous axial images were obtained through the chest without intravenous contrast enhancement. Sagittal and coronal reconstructions were performed. Radiation dose: Total exam DLP = 400.05 mGy-cm. This CT exam was performed using one or more of the following dose reduction techniques: Automated exposure control, adjustment of the mA and/or kV according to patient size, and/or use of iterative reconstruction technique. FINDINGS: LUNGS: Right middle lobe infiltrate/atelectasis. Left lower lobe infiltrate confirming findings on recent chest radiograph. MEDIASTINUM: Unremarkable thoracic aorta. No aneurysm. Postoperative changes includes median sternotomy, valvulae item a (mitral valve). Dilated main pulmonary artery consistent with pulmonary arterial hypertension. No lymphadenopathy. No aortic atherosclerotic calcification. PLEURA: No pleural fluid. No pneumothorax. BONES: No fracture. No destructive lesion. UPPER ABDOMEN: Grossly unremarkable. OTHER FINDINGS: None. IMPRESSION: Confirmation findings on recent chest radiograph specifically left lower lobe infiltrate. Right middle lobe infiltrate/linear atelectasis. Additional benign and/or incidental findings described above. Concordant results (preliminary interpretation) provided by [facility]. Procedure Completed: 19:49. Preliminary Report: Dictated and Authenticated: 20:37. Final Interpretation: 11:10. September 06, 2018
[2018-09-06] MEDS ORDERED: Azithromycin 500MG/NS 250ml 500 MG/250 ML BAG IVPB SCH (15:00)
[2018-09-06] MEDS: cefTRIAXone 1 gm 1 GM/100 ML BAG IVPB SCH (15:07)
--- NOTE | 2018-09-06 16:48 | CP.PCM.PN ---
<Smith Ordaz - Last Filed: 09/06/18 16:31> Subjective - Date & Time of Evaluation Date of Evaluation: 09/06/18 Time of Evaluation: 16:32 - Subjective Subjective: Smith Ordaz DO PGY1 Internal Medicine Application Engineer - Medicine Progress Note Patient was seen this morning at bedside; No acute events reported overnight. Reports she is feeling well this morning; chest pain improved. Denies SOB, Cough, Abd pain, n/v/d/c, tolerating diet well. Objective - Vital Signs/Intake and Output Vital Signs (last 24 hours): Temp Pulse Resp BP Pulse Ox 98.7 F 73 18 141/87 97 09/06/18 12:00 09/06/18 14:00 09/06/18 12:00 09/06/18 12:00 09/06/18 05:44 Intake and Output: 09/06/18 09/06/18 06:59 18:59 Intake Total 260 Balance 260 - Medications Medications: Current Medications Albuterol/Ipratropium (Duoneb 3 Mg/0.5 Mg (3 Ml) Ud) 3 ml IH [id number] PRN PRN Reason: Shortness of Breath Alprazolam (Xanax) 0.5 mg PO QID PRN; Protocol PRN Reason: Anxiety Last Admin: 09/05/18 21:01 Dose: 0.5 mg Ceftriaxone Sodium (Rocephin 1 Gram Ivpb) 1 gm in 100 mls @ 100 mls/hr IVPB DAILY TED; Protocol Last Admin: 09/06/18 15:07 Dose: 100 mls/hr Azithromycin (Zithromax 500mg In Ns) 500 mg in 250 mls @ 167 mls/hr IVPB DAILY TED; Protocol Last Admin: 09/06/18 16:29 Dose: 167 mls/hr Morphine Sulfate (Morphine) 1 mg IVP Q6H PRN PRN Reason: Pain, severe (8-10) Last Admin: 09/06/18 14:54 Dose: 1 mg Trazodone HCl (Desyrel) 200 mg PO HS TED Last Admin: 09/05/18 22:11 Dose: 200 mg Venlafaxine HCl (Effexor Xr) 150 mg PO DAILY TED Last Admin: 09/06/18 10:37 Dose: 150 mg Warfarin Sodium (Coumadin) 5 mg PO 1800 TED; Protocol - Labs Labs: 09/05/18 15:00 09/05/18 16:30 PT 30.0 SECONDS (9.4-12.5) H 09/06/18 07:30 INR 2.56 09/06/18 07:30 APTT 34.6 Seconds (25.1-36.5) 09/05/18 16:30 - Constitutional Appears: Well, Non-toxic, No Acute Distress - Head Exam Head Exam: ATRAUMATIC, NORMOCEPHALIC - Eye Exam Eye Exam: EOMI, PERRL - Respiratory Exam Additional comments: Diminished LLB - Cardiovascular Exam Cardiovascular Exam: RRR, +S1, +S2 - GI/Abdominal Exam GI & Abdominal Exam: Soft. absent: Tenderness - Extremities Exam Extremities Exam: Normal Inspection Additional comments: 2+ Distal LE pulses DP - Psychiatric Exam Psychiatric exam: Normal Affect, Normal Mood - Skin Skin Exam: Dry, Intact, Warm Assessment and Plan - Assessment and Plan (Free Text) Assessment: 57F w/ PMH Rheumatic heart disease (s/p MV replacement 06/02), Anxiety, Depression, presented to [facility] on 09/05 w/ c/o of non-radiating, non exertional chest pain; found to have LLB infiltrate on CXR; admitted for ACS r/o and management of PNA Plan: CP - ACS r/o Troponin x3 negative EKG shows no ischemic changes at this time D-Dimer negative Heart Score 2 // ANUPAMA Score 0 Cardiology Following, Appreciate recs LLB infiltrate Procal wnl 09/05 CT Chest w/ Left lower lobe infiltrate, Right middle lobe infiltrate/linea r atelectasis. Start Zithromax/ Rocephin Monitor WBC Encourage spirometer use Duonebs Q4H as needed Rheumatic Heart Disease Post MV replacement w/ Mechanical Valve 06/02 C/w Warfarin 5mg Monitor INR - Currently 2.56 Hx of Anxiety/ Depression C/w home xanax 0.5 QID PRN C/w home Venlafaxine ER 15 QD PPX: Warfarin Famotidine Patient was seen examined and discussed w/ attending physician Dr. Heidi Ordaz DO PGY1 Internal Medicine Application Engineer - Medicine Progress Note <Heidi Ordaz R - Last Filed: 09/07/18 15:13> Objective - Vital Signs/Intake and Output Vital Signs (last 24 hours): Temp Pulse Resp BP Pulse Ox 98.0 F 73 20 125/82 100 09/07/18 12:00 09/07/18 12:00 09/07/18 12:00 09/07/18 12:00 09/07/18 05:49 Intake and Output: 09/07/18 09/07/18 06:59 18:59 Intake Total 640 Balance 640 - Medications Medications: Current Medications Albuterol/Ipratropium (Duoneb 3 Mg/0.5 Mg (3 Ml) Ud) 3 ml IH [id number] PRN PRN Reason: Shortness of Breath Alprazolam (Xanax) 0.5 mg PO QID PRN; Protocol PRN Reason: Anxiety Last Admin: 09/07/18 09:24 Dose: 0.5 mg Famotidine (Pepcid) 40 mg PO HS TED Last Admin: 09/06/18 21:36 Dose: 40 mg Ceftriaxone Sodium (Rocephin 1 Gram Ivpb) 1 gm in 100 mls @ 100 mls/hr IVPB DAILY [facility]; Protocol Last Admin: 09/07/18 09:24 Dose: 100 mls/hr Levofloxacin (Levaquin) 500 mg PO DAILY [facility]; Protocol Last Admin: 09/07/18 11:36 Dose: 500 mg Morphine Sulfate (Morphine) 1 mg IVP Q6H PRN PRN Reason: Pain, severe (8-10) Last Admin: 09/07/18 06:37 Dose: 1 mg Trazodone HCl (Desyrel) 200 mg PO HS [facility] Last Admin: 09/06/18 21:36 Dose: 200 mg Venlafaxine HCl (Effexor Xr) 150 mg PO DAILY [facility] Last Admin: 09/07/18 09:23 Dose: 150 mg Warfarin Sodium (Coumadin) 5 mg PO 1800 TED; Protocol Last Admin: 09/06/18 17:09 Dose: 5 mg - Labs Labs: 09/07/18 08:00 09/07/18 08:00 PT 25.5 SECONDS (9.4-12.5) H 09/06/18 19:00 INR 2.20 09/06/18 19:00 APTT 45.0 Seconds (25.1-36.5) H 09/06/18 19:00 Attending/Attestation - Attestation I have personally seen and examined this patient.: Yes I have fully participated in the care of the patient.: Yes I have reviewed all pertinent clinical information, including history, physical exam and plan: Yes Notes (Text): Patient seen and examined by me with resident at 9:15AM on 09/06/18. Case including HPI, physical exam, and assessment and plan discussed with resident. Agree with above with following additions/corrections. Patient is a 57-year-old female past medical history significant for colitis, endometriosis, chronic back pain s/p herniated discs, anxiety and depression, rheumatic heart disease, and mitral valve replacement in May 2018 that p resented to the emergency room with left sided reproducible chest pain and left upper back pain that has progressively gotten worse since having open-heart surgery in May 2018. Patient states she is feeling a little better today. Chest pain improved. Still with upper left back pain. No shortness of breath or palpitations. No nausea, vomiting, or abdominal pain. No headaches or dizziness. No fevers or chills. No dysuria. Physical exam: General: Awake and alert lying in bed in no acute distress HEENT: Normocephalic, atraumatic. Extraocular muscles intact, pupils equal and reactive, no scleral icterus. Oropharynx is pink and moist. No pharyngeal erythema or exudate appreciated. Cardiovascular: Regular rhythm. Normal S1 and S2. Positive opening snap. No rubs or gallops appreciated. Pulmonary: Normal respiratory effort. No rhonchi, rales, or wheezing appreciated. Gastrointestinal: Soft, nondistended. Nontender. Positive bowel sounds all 4 quadrants. No guarding. Musculoskeletal: Moves all extremities. No calf tenderness. No edema appreciated. No CVA tenderness. Positive and anterior chest wall tenderness, more prominent on left above left breast. Positive left upper back paraspinal muscle tenderness. Central nervous system: AAO x3, CN II through XII grossly intact. 5/5 muscle strength all extremities. Dermatologic: Skin warm and dry. Assessment and plan: Patient is a 57-year-old female past medical history significant for colitis, endometriosis, chronic back pain s/p herniated discs, anxiety and depression, rheumatic heart disease, and mitral valve replacement in May 2018 that presented to the emergency room with left sided reproducible chest pain and left upper back pain that has progressively gotten worse since having open-heart surgery in May 2018. 1. Chest pain. Likely musculoskeletal secondary to recent open heart surgery. Troponins within normal limits. Cardiology consulted, follow up recommendations. D-dimer <200. BNP 461. 2. Abnormal chest xray. Chest xray as read by me shows left lower lobe haziness, ?infiltrate. Patient afebrile. No leukocytosis. Chest CT per radiologist shows confirmation findings on recent chest radiograph specifically left lower lobe infiltrate, right middle lobe infiltrate/linear atelectasis. Continue on Matias ephin and Zithromax. Pending pro-calcitonin. Influenza negative 3. S/P mitral valve replacement. Continue Coumadin 5 mg ///Fri/Fri and 7.5mg and Friday. INR therapeutic. Follow up repeat INR in AM. 4. Depression and anxiety. Contine home Xananx prn. Continue home Effexor XR. Continue home trazodone at bedtime. Patient to continue to follow up outpatient with her psychiatrist. Case was discussed in detail with the patient regarding current diagnosis and treatment plan. All questions answered.
[2018-09-06] MEDS ORDERED: Morphine 2 mg/ml ISec IVP STA (18:25)
[2018-09-06 19:32] LABS: INR 2.2; PROTHROMBIN TIME 25.5 SECONDS (9.4-12.5)
[2018-09-06 23:14] VITALS: RESP 20
--- NOTE | 2018-09-06 23:22 | CON ---
DATE: 09/06/2018 CARDIOLOGY CONSULT REASON FOR CONSULTATION: Sharp chest discomfort. HISTORY OF PRESENT ILLNESS: The patient is a 57-year-old female who underwent recently in 05/2018, at [facility], mitral valve replacement with a mechanical prosthesis according to the patient, and the patient presented because of sharp chest pain, mainly after coughing, and the patient is considering about possibility of lung collapse, because she did experience a lung collapse following her surgery at [facility]. According to the records in 05/2018, the patient underwent cardiac catheterization by Dr. Matthew Mckeon, which revealed [id number] mitral insufficiency and moderate pulmonary hypertension with a mean pulmonary artery pressure measured at 49 mmHg, and the patient was recommended mitral valve repair at the time. SOCIAL HISTORY: The patient is a light smoker, and she is an occasional drinker. MEDICATIONS: Coumadin 5 mg daily, Desyrel 200 mg each bedtime, Effexor 150 mg once daily, morphine sulfate 1 mg intravenously every 6 hours p.r.n., Xanax 0.5 mg 4 times daily. REVIEW OF SYSTEMS: No fever or chills. No dizziness or syncope and no leg swelling. PHYSICAL EXAMINATION GENERAL: The patient is a middle-aged female who does not appear to be in any distress. VITAL SIGNS: Blood pressure 141/87, heart rate 64, temperature 98.7, respirations 18. HEENT: Normocephalic. CHEST: Clear. HEART: S1 and S2 regular. ABDOMEN: Soft. EXTREMITIES: No edema. LABORATORY DATA: Hemoglobin and hematocrit are 11.7 and 36.2, white count 9.0, platelet count 358,000. SMA-7: Sodium 138, potassium 4.4, chloride 102, CO2 of 30, glucose 86, BUN 12, creatinine 0.7. Three sets of troponins are negative. INR is 2.56. D-dimer is within normal limit. Influenza type A and B serology is negative. Chest CT scan: Left lower lobe infiltrate, right middle lobe infiltrate/linear atelectasis. EKG revealed normal sinus rhythm with low-voltage QRS complex, heart rate 72. Chest x-ray revealed normal cardiac silhouette, mitral ring is noted, and right lower lobe infiltrate. ASSESSMENT: 1. Status post mechanical mitral valve replacement according to the patient, questionable repair of another valve, mostly likely the tricuspid valve. 2. Consider bilateral pneumonia. 3. CT scan confirmed left lower lobe infiltrate and right middle lobe infiltrate. RECOMMENDATIONS: Continue Coumadin 5 mg orally daily. Continue albuterol inhaler. Continue morphine sulfate 1 mg intravenously p.r.n. and Xanax 0.5 mg 4 times daily. Consider scheduling the patient for an echocardiogram if she agrees to stay overnight. Luke Lopez MD
[2018-09-07 05:50] VITALS: O2SAT 100
[2018-09-07] MEDS: Morphine 2 mg/ml ISec IVP PRN (06:37)
[2018-09-07 08:13] LABS: BASO # 0.05 K/mm3 (0.0-2.0); BASO % 0.8 % (0.0-3.0); EOS % 0.5 % (1.5-5.0); GRAN # 3.21 (1.4-6.5); GRAN % 50.8 % (50.0-68.0); HEMOGLOBIN 11.8 g/dL (12.0-16.0); LYMPH # 2.6 (1.2-3.4); LYMPH % 41.4 % (22.0-35.0); MEAN CELL VOLUME 88.3 fl (80.0-105.0); MEAN CORPUSCULAR HEMOGLOBIN 28.7 pg (25.0-35.0); MEAN CORPUSCULAR HGB CONC 32.5 g/dl (31.0-37.0); MEAN PLATELET VOLUME 9.4 fl (7.0-11.0); MONO # 0.4 (0.1-0.6); MONO % 6.5 % (1.0-6.0); RBC 4.11 10^6/uL (3.5-6.1); RED CELL DISTRIBUTION WIDTH 14.1 % (11.5-14.5); WHITE BLOOD COUNT 6.3 10^3/uL (4.5-11.0)
[2018-09-07 08:29] LABS: ALB/GLOB RATIO 1.5 (1.1-1.8); ALBUMIN 3.9 g/dL (3.0-4.8); ALT/SGPT 28 U/L (7-56); AST/SGOT 27 U/L (14-36); BLOOD UREA NITROGEN 11 mg/dL (7-21); CALCIUM 9.2 mg/dL (8.4-10.5); GFR NON-AFRICAN AMERICAN > 60
[2018-09-07] MEDS: Venlafaxine 75 mg ER Cap PO SCH (09:23)
[2018-09-07] MEDS: cefTRIAXone 1 gm 1 GM/100 ML BAG IVPB SCH (09:24)
--- NOTE | 2018-09-07 10:53 | PN ---
DATE: 09/07/2018 SUBJECTIVE: The patient presented after mitral valve repair and replacement at [place]. She has been complaining of chest wall discomfort. She denies shortness of breath. PHYSICAL EXAMINATION: VITAL SIGNS: Blood pressure 115/45, heart rate is in the 60s. NECK: Negative JVD. LUNGS: Decreased breath sounds at the bases. HEART: Reveal S1 and S2. EXTREMITIES: Without edema. LABORATORY DATA: Hemoglobin is 11.8, white count is normal. Chemistries, BUN and creatinine unremarkable. Troponins are negative x4. The patient has been afebrile. IMPRESSION: 1. Status post mitral valve replacement and repair of the tricuspid valve. 2. Chest wall pain, status post thoracotomy 3. The x-ray findings are consistent with atelectatic changes postsurgery. I am giving the splinting that the patient has been doing. 4. Resolution of congestive heart failure. PLAN: 1. Given these findings, we will discontinue her antibiotics. It is unlikely that the patient has pneumonia. 2. I have discussed the need for use of incentive spirometry constantly. I have encouraged the patient to ambulate on a daily basis. 3. We will discontinue her antibiotics. We will discontinue her telemetry. We will arrange for an echocardiogram as an outpatient. The patient wants to go home given that it is [facility] [place]. Matthew Mckeon MD
[2018-09-07] MEDS ORDERED: levoFLOXacin 500 MG TAB PO SCH (11:15)
[2018-09-07 13:39] VITALS: BP 125/82; PULSE 73; TEMP 98
--- NOTE | 2018-09-07 15:27 | CP.PCM.DIS ---
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 Referral Routine Comment: PNEUMONIA Physician Instructions: Reason For Exam: EVALUATION Transition In Care/Readmission Reduction Routine Comment: Physician Instructions: Reason For Exam: EVALUATION Time Spent in preparation of Discharge (in minutes): 40 Diagnosis - Discharge Diagnosis (1) Chest pain Status: Acute (2) Mitral regurgitation Status: Acute (3) Pneumonia Status: Acute Hospital Course - Lab Results Lab Results: Micro Results 09/05/18 15:00 Blood-Venous Blood Culture - Preliminary NO GROWTH AFTER 48 HOURS 09/05/18 14:45 Blood-Venous Blood Culture - Preliminary NO GROWTH AFTER 48 HOURS Most Recent Lab Values WBC 6.3 10^3/uL (4.5-11.0) D 09/07/18 08:00 RBC 4.11 10^6/uL (3.5-6.1) 09/07/18 08:00 Hgb 11.8 g/dL (12.0-16.0) L 09/07/18 08:00 Hct 36.3 % (36.0-48.0) 09/07/18 08:00 MCV 88.3 fl (80.0-105.0) 09/07/18 08:00 MCH 28.7 pg (25.0-35.0) 09/07/18 08:00 MCHC 32.5 g/dl (31.0-37.0) 09/07/18 08:00 RDW 14.1 % (11.5-14.5) 09/07/18 08:00 Plt Count 283 10^3/uL (120.0-450.0) 09/07/18 08:00 MPV 9.4 fl (7.0-11.0) 09/07/18 08:00 Gran % 50.8 % (50.0-68.0) 09/07/18 08:00 Lymph % (Auto) 41.4 % (22.0-35.0) H 09/07/18 08:00 [place] % (Auto) 6.5 % (1.0-6.0) H 09/07/18 08:00 Eos % (Auto) 0.5 % (1.5-5.0) L 09/07/18 08:00 Baso % (Auto) 0.8 % (0.0-3.0) 09/07/18 08:00 Gran # 3.21 (1.4-6.5) 09/07/18 08:00 Lymph # (Auto) 2.6 (1.2-3.4) 09/07/18 08:00 [place] # (Auto) 0.4 (0.1-0.6) 09/07/18 08:00 Eos # (Auto) 0.0 (0.0-0.7) 09/07/18 08:00 Baso # (Auto) 0.05 K/mm3 (0.0-2.0) 09/07/18 08:00 PT 25.5 SECONDS (9.4-12.5) H 09/06/18 19:00 INR 2.20 09/06/18 19:00 APTT 45.0 Seconds (25.1-36.5) H 09/06/18 19:00 D-Dimer, Quantitative < 200 ng/mlDDU (0-243) 09/05/18 16:30 pO2 66 mm/Hg (30-55) H 09/05/18 15:00 VBG pH 7.39 (7.32-7.43) 09/05/18 15:00 VBG pCO2 55.0 (40-60) 09/05/18 15:00 VBG HCO3 33.3 mmol/l (21-28) H 09/05/18 15:00 VBG Total CO2 35.0 mmol.L (22-28) H 09/05/18 15:00 VBG O2 Sat (Calc) 95.4 % (40-65) H 09/05/18 15:00 VBG Base Excess 6.7 mmol/L (0.0-2.0) H 09/05/18 15:00 VBG Potassium 6.6 mmol/L (3.6-5.2) H* 09/05/18 15:00 Sodium 137.0 mmol/L (132-148) 09/05/18 15:00 Chloride 104.0 mmol/L (98-107) 09/05/18 15:00 Glucose 72 mg/dl (65-105) 09/05/18 15:00 Lactate 1.6 mmol/L (0.7-2.1) 09/05/18 15:00 FiO2 21.0 % 09/05/18 15:00 Sodium 141 mmol/L (132-148) 09/07/18 08:00 Potassium 4.6 mmol/L (3.6-5.0) 09/07/18 08:00 Chloride 109 mmol/L (98-107) H 09/07/18 08:00 Carbon Dioxide 27 mmol/L (21-33) 09/07/18 08:00 Anion Gap 9 (10-20) L 09/07/18 08:00 BUN 11 mg/dL (7-21) 09/07/18 08:00 Creatinine 0.8 mg/dl (0.7-1.2) 09/07/18 08:00 Est GFR ( Amer) > 60 09/07/18 08:00 Est GFR (Non-Af Amer) > 60 09/07/18 08:00 Random Glucose 90 mg/dL (70-110) 09/07/18 08:00 Calcium 9.2 mg/dL (8.4-10.5) 09/07/18 08:00 Magnesium 1.9 mg/dL (1.7-2.2) 09/05/18 16:30 Total Bilirubin 0.4 mg/dL (0.2-1.3) 09/07/18 08:00 AST 27 U/L (14-36) 09/07/18 08:00 ALT 28 U/L (7-56) 09/07/18 08:00 Alkaline Phosphatase 74 U/L (38-126) 09/07/18 08:00 Lactate Dehydrogenase 1222 U/L (333-699) H 09/05/18 16:30 Total Creatine Kinase 72 U/L (35-230) 09/05/18 16:30 Troponin I < 0.01 ng/mL 09/06/18 07:30 NT-Pro-B Natriuret Pep 461 pg/mL (0-450) H 09/05/18 16:30 Total Protein 6.7 g/dL (5.8-8.3) 09/07/18 08:00 Albumin 3.9 g/dL (3.0-4.8) 09/07/18 08:00 Globulin 2.7 gm/dL 09/07/18 08:00 Albumin/Globulin Ratio 1.5 (1.1-1.8) 09/07/18 08:00 Procalcitonin < 0.05 NG/ML (0.19-0.49) L 09/05/18 16:00 Venous Blood Potassium 6.6 mmol/L (3.6-5.2) H* 09/05/18 15:00 Urine Color Yellow (YELLOW) 09/05/18 16:10 Urine Appearance Clear (CLEAR) 09/05/18 16:10 Urine pH 8.5 (4.7-8.0) 09/05/18 16:10 Ur Specific [place] 1.025 (1.005-1.035) 09/05/18 16:10 Urine Protein Negative mg/dL (<30 mg/dL) 09/05/18 16:10 Urine Glucose (UA) Negative mg/dL (NEGATIVE) 09/05/18 16:10 Urine Ketones Negative mg/dL (NEGATIVE) 09/05/18 16:10 Urine Blood Negative (NEGATIVE) 09/05/18 16:10 Urine Nitrate Negative (NEGATIVE) 09/05/18 16:10 Urine Bilirubin Negative (NEGATIVE) 09/05/18 16:10 Urine Urobilinogen 0.2 E.U./dL (<1 E.U./dL) 09/05/18 16:10 Ur Leukocyte Esterase Negative Marika/uL (NEGATIVE) 09/05/18 16:10 Influenza Typ A,B (EIA) Negative for flu a/b (NEGATIVE) 09/05/18 17:26 - Hospital Course Hospital Course: Smith Ordaz DO PGY1 - Internal Medicine Card Decorator - Hospital DC Summary Disclaimer: Please note this is a brief synopsis of the patient's hospital course; for full hospital record please refer to EMR 57F w/ PMH Rheumatic heart disease (s/p MV replacement 06/02), Anxiety, Depression, presented [place] [facility] [place] w/ c/o of non-radiating, non exertional chest pain; found to have left lower lobe infiltrate on CXR; admitted for ACS r/o and management of PNA. At time of admission, cardiology was consulted. Upon initial presentation; patient was found to have no elevation in trop, ischemic changes in EKG, or elevated D-DImer. Patient underwent CT chest during admission which confirmed present of Left lower lobe infiltrate; w/ negative procal. She was subsequently started on abx to cover for CAP. Through hospital course patient reported her chest pain was improving; night of 09/06 patient complained of chest pain which woke her from sleep; patient was evaluated at bedside and was found to be hemodynamically stable; w/ no ischemic changes on EKG. In regards to her Rheumatic Heart Disease Post MV replacement w/ Mechanical Valve 06/02 - she was kept on her home warfarin and inr 2-3 was maintained. Morning prior to discharge, cardiology recommended no further inpatient management required. Patient reported her chest pain significantly improved from night before; denied any sob, abd pain, n/v/d/c, urinary complaints. Follow up and home medications were reviewed with patient; Patient is medically optimized for discharge at this time. Discharge Exam - Head Exam Head Exam: ATRAUMATIC, NORMOCEPHALIC - Eye Exam Eye Exam: EOMI, Normal appearance, PERRL - ENT Exam ENT Exam: Mucous Membranes Moist - Respiratory Exam Respiratory Exam: Clear to PA & Lateral, NORMAL BREATHING PATTERN, UNREMARKABLE - Cardiovascular Exam Cardiovascular Exam: REGULAR RHYTHM, +S1, +S2 Additional comments: chest tender to palpation - GI/Abdominal Exam GI & Abdominal Exam: Normal Bowel Sounds, Unremarkable - Extremities Exam Additional comments: distal pulses 2+ BL DP No edema BL LE - Neurological Exam Neurological exam: Alert, CN II-XII Intact, Normal Gait, Oriented x3 - Psychiatric Exam Psychiatric exam: Normal Affect, Normal Mood - Skin Skin Exam: Dry, Intact, Normal Color, Warm Discharge Plan - Discharge Medications Prescriptions: Levofloxacin [Levaquin] 500 mg PO DAILY #5 tablet - Follow Up Plan Condition: FAIR Disposition: HOME/ ROUTINE Instructions: Pneumonia, Adult (DC), Chest Pain (DC) Additional Instructions: Please follow up with your primary medical doctor, Dr. Brizuela, within 3-5 days upon discharge. Please follow up with Dr. Mckeon ([employer] [employer]) within 1 week of discharge. You will need an Echocardiogram as outpatient as per Dr. Mckeon. Continue home medications as prescribed. You can take over the counter Tylenol as needed for pain. You have been given a prescription for: 1. Levaquin (Anitbiotic) 500mg DAILY for 5 days. Continue all other home medication as prescribed. If your symptoms return, please go to the nearest emergency department. 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 Referral Routine Comment: PNEUMONIA Physician Instructions: Reason For Exam: EVALUATION Transition In Care/Readmission Reduction Routine Comment: Physician Instructions: Reason For Exam: EVALUATION Hospital Course - Lab Results Lab Results: Micro Results 09/05/18 15:00 Blood-Venous Blood Culture - Preliminary NO GROWTH AFTER 48 HOURS 09/05/18 14:45 Blood-Venous Blood Culture - Preliminary NO GROWTH AFTER 48 HOURS Most Recent Lab Values WBC 6.3 10^3/uL (4.5-11.0) D 09/07/18 08:00 RBC 4.11 10^6/uL (3.5-6.1) 09/07/18 08:00 Hgb 11.8 g/dL (12.0-16.0) L 09/07/18 08:00 Hct 36.3 % (36.0-48.0) 09/07/18 08:00 MCV 88.3 fl (80.0-105.0) 09/07/18 08:00 MCH 28.7 pg (25.0-35.0) 09/07/18 08:00 MCHC 32.5 g/dl (31.0-37.0) 09/07/18 08:00 RDW 14.1 % (11.5-14.5) 09/07/18 08:00 Plt Count 283 10^3/uL (120.0-450.0) 09/07/18 08:00 MPV 9.4 fl (7.0-11.0) 09/07/18 08:00 Gran % 50.8 % (50.0-68.0) 09/07/18 08:00 Lymph % (Auto) 41.4 % (22.0-35.0) H 09/07/18 08:00 [place] % (Auto) 6.5 % (1.0-6.0) H 09/07/18 08:00 Eos % (Auto) 0.5 % (1.5-5.0) L 09/07/18 08:00 Baso % (Auto) 0.8 % (0.0-3.0) 09/07/18 08:00 Gran # 3.21 (1.4-6.5) 09/07/18 08:00 Lymph # (Auto) 2.6 (1.2-3.4) 09/07/18 08:00 [place] # (Auto) 0.4 (0.1-0.6) 09/07/18 08:00 Eos # (Auto) 0.0 (0.0-0.7) 09/07/18 08:00 Baso # (Auto) 0.05 K/mm3 (0.0-2.0) 09/07/18 08:00 PT 25.5 SECONDS (9.4-12.5) H 09/06/18 19:00 INR 2.20 09/06/18 19:00 APTT 45.0 Seconds (25.1-36.5) H 09/06/18 19:00 D-Dimer, Quantitative < 200 ng/mlDDU (0-243) 09/05/18 16:30 pO2 66 mm/Hg (30-55) H 09/05/18 15:00 VBG pH 7.39 (7.32-7.43) 09/05/18 15:00 VBG pCO2 55.0 (40-60) 09/05/18 15:00 VBG HCO3 33.3 mmol/l (21-28) H 09/05/18 15:00 VBG Total CO2 35.0 mmol.L (22-28) H 09/05/18 15:00 VBG O2 Sat (Calc) 95.4 % (40-65) H 09/05/18 15:00 VBG Base Excess 6.7 mmol/L (0.0-2.0) H 09/05/18 15:00 VBG Potassium 6.6 mmol/L (3.6-5.2) H* 09/05/18 15:00 Sodium 137.0 mmol/L (132-148) 09/05/18 15:00 Chloride 104.0 mmol/L (98-107) 09/05/18 15:00 Glucose 72 mg/dl (65-105) 09/05/18 15:00 Lactate 1.6 mmol/L (0.7-2.1) 09/05/18 15:00 FiO2 21.0 % 09/05/18 15:00 Sodium 141 mmol/L (132-148) 09/07/18 08:00 Potassium 4.6 mmol/L (3.6-5.0) 09/07/18 08:00 Chloride 109 mmol/L (98-107) H 09/07/18 08:00 Carbon Dioxide 27 mmol/L (21-33) 09/07/18 08:00 Anion Gap 9 (10-20) L 09/07/18 08:00 BUN 11 mg/dL (7-21) 09/07/18 08:00 Creatinine 0.8 mg/dl (0.7-1.2) 09/07/18 08:00 Est GFR ( Amer) > 60 09/07/18 08:00 Est GFR (Non-Af Amer) > 60 09/07/18 08:00 Random Glucose 90 mg/dL (70-110) 09/07/18 08:00 Calcium 9.2 mg/dL (8.4-10.5) 09/07/18 08:00 Magnesium 1.9 mg/dL (1.7-2.2) 09/05/18 16:30 Total Bilirubin 0.4 mg/dL (0.2-1.3) 09/07/18 08:00 AST 27 U/L (14-36) 09/07/18 08:00 ALT 28 U/L (7-56) 09/07/18 08:00 Alkaline Phosphatase 74 U/L (38-126) 09/07/18 08:00 Lactate Dehydrogenase 1222 U/L (333-699) H 09/05/18 16:30 Total Creatine Kinase 72 U/L (35-230) 09/05/18 16:30 Troponin I < 0.01 ng/mL 09/06/18 07:30 NT-Pro-B Natriuret Pep 461 pg/mL (0-450) H 09/05/18 16:30 Total Protein 6.7 g/dL (5.8-8.3) 09/07/18 08:00 Albumin 3.9 g/dL (3.0-4.8) 09/07/18 08:00 Globulin 2.7 gm/dL 09/07/18 08:00 Albumin/Globulin Ratio 1.5 (1.1-1.8) 09/07/18 08:00 Procalcitonin < 0.05 NG/ML (0.19-0.49) L 09/05/18 16:00 Venous Blood Potassium 6.6 mmol/L (3.6-5.2) H* 09/05/18 15:00 Urine Color Yellow (YELLOW) 09/05/18 16:10 Urine Appearance Clear (CLEAR) 09/05/18 16:10 Urine pH 8.5 (4.7-8.0) 09/05/18 16:10 Ur Specific [place] 1.025 (1.005-1.035) 09/05/18 16:10 Urine Protein Negative mg/dL (<30 mg/dL) 09/05/18 16:10 Urine Glucose (UA) Negative mg/dL (NEGATIVE) 09/05/18 16:10 Urine Ketones Negative mg/dL (NEGATIVE) 09/05/18 16:10 Urine Blood Negative (NEGATIVE) 09/05/18 16:10 Urine Nitrate Negative (NEGATIVE) 09/05/18 16:10 Urine Bilirubin Negative (NEGATIVE) 09/05/18 16:10 Urine Urobilinogen 0.2 E.U./dL (<1 E.U./dL) 09/05/18 16:10 Ur Leukocyte Esterase Negative Marika/uL (NEGATIVE) 09/05/18 16:10 Influenza Typ A,B (EIA) Negative for flu a/b (NEGATIVE) 09/05/18 17:26 Attending/Attestation - Attestation I have personally seen and examined this patient.: Yes I have fully participated in the care of the patient.: Yes I have reviewed all pertinent clinical information, including history, physical exam and plan: Yes Notes (Text): 09/08/18 12:04 attending note; Patient seen examined with resident. Patient is a 57-year-old female past medical history significant for colitis, endometriosis, chronic back pain s/p herniated discs, anxiety and depression, rheumatic heart disease, and mitral valve replacement in May 2018 that pr esented to the emergency room with left sided reproducible chest pain and left upper back pain that has progressively gotten worse since having open-heart surgery in May 2018. 1. Chest pain. Likely musculoskeletal secondary to recent open heart surgery. Troponins within normal limits. Cardiology recommendations Appreciated. D-dimer <200. BNP 461. patient will get echocardiogram done as outpatient. Patient was evaluated by cardiology Dr. Mckeon today. cleared for discharge with close outpatient follow-up. 2. Abnormal chest xray. . Chest CT t shows confirmation findings on recent chest radiograph specifically left lower lobe infiltrate, right middle lobe infiltrate/linear atelectasis. on Rocephin and Zithromax. we will discharge home with by mouth levofloxacin. 3. S/P mitral valve replacement. Continue Coumadin 5 mg ///Fri/Fri and 7.5mg and Friday. INR therapeutic. 4. Depression and anxiety. Contine home Xananx prn. Continue home Effexor XR. Continue home trazodone at bedtime. Patient to continue to follow up outpatient with her psychiatrist. upon discharge the patient will follow up with PMD Dr. Brizuela. 09/08/18 12:22
== END 2018-09-07 15:22 | disposition home or self-care (01) ==
LOC: ED 13:05 → INTOOBSV 17:06 → ERH 17:06 → 2RSO 20:40
PROVIDERS: ADMIT Internal Medicine; ATTEND Internal Medicine
DX: R07.89 Other chest pain (principal); G89.18 Other acute postprocedural pain; E78.5 Hyperlipidemia, unspecified; I25.10 Atherosclerotic heart disease of native coronary artery without angina pectoris; F32.89 Other specified depressive episodes; F41.9 Anxiety disorder, unspecified; I09.9 Rheumatic heart disease, unspecified; I27.20 Pulmonary hypertension, unspecified; I50.9 Heart failure, unspecified; F17.200 Nicotine dependence, unspecified, uncomplicated; J98.11 Atelectasis; I05.1 Rheumatic mitral insufficiency; Z95.2 Presence of prosthetic heart valve; Z90.710 Acquired absence of both cervix and uterus; Z79.01 Long term (current) use of anticoagulants; Z80.3 Family history of malignant neoplasm of breast; Z80.0 Family history of malignant neoplasm of digestive organs; Z82.49 Family history of ischemic heart disease and other diseases of the circulatory system
CPT/HCPCS: 36415; 71045; 71250; 80053; 81003; 82550; 82803; 83615; 83735; 83880; 84145; 84484; 85025; 85378; 85610; 85730; 87040; 87804; 93005; 96365; 96367; 96375; 96376; 99285; G0378; J0456; J0696; J2270